=== PATIENT | male | born 1965 | race Caucasian/White ===

== ENCOUNTER 2017-01-15 07:50 | Outpatient (CLI) | payer MEDICARE ==
[2017-01-15] VITALS (11 sets, daily range): BP systolic 127–158; BP diastolic 69–98
[~2017-01-15] VITALS: Ht 188 cm; Wt 109.8 kg
[2017-01-15] MEDS ORDERED: LOVA20TA2 PO (08:09)
[2017-01-15] MEDS ORDERED: NPH,100V5 SQ (08:13)
[2017-01-15] MEDS ORDERED: FENO150C3 PO (08:18)
[2017-01-15] MEDS ORDERED: INSU100I30 SQ (08:19)
[2017-01-15] MEDS ORDERED: LISI-334 PO (08:24)
[2017-01-15] MEDS ORDERED: HYDR25TA9 PO (08:24)
[2017-01-15 08:29] LABS: HEMATOCRIT 43.4 % (39.0-53.0); HEMOGLOBIN 14.8 g/dL (13.0-17.5); RED BLOOD COUNT 4.53 x10^6/uL (4.30-5.70); RED CELL DISTRIBUTION WIDTH 13.4 % (11.5-14.5); WHITE BLOOD COUNT 5.2 x10^3/uL (4.0-11.0)
[2017-01-15 08:41] LABS: CALCIUM 9.1 mg/dL (8.5-10.1); CREATININE 0.9 mg/dL (0.7-1.3); GFR 88.3; POTASSIUM 4.4 mmol/L (3.5-5.1)
[2017-01-15 08:47] LABS: PROTHROMBIN TIME PATIENT 12.4 SEC (11.7-14.0)
[2017-01-15] MEDS ORDERED: IOHEXOL 300 MG/ML 100ML VIAL. ONE (08:54)
[2017-01-15] MEDS ORDERED: HEPARIN for IV BOLUS 10,000 UNIT/10 ML VIAL. ONE (09:22)
[2017-01-15] MEDS ORDERED: MIDAZOLAM HCL/PF 2 MG/2 ML VIAL. ONE ×2 (09:22→09:38)
[2017-01-15] MEDS ORDERED: NITROGLYCERIN 200 MCG/2 ML SYRINGE FOR CATH/VASC LAB. ONE (09:22)
[2017-01-15] MEDS ORDERED: VERAPAMIL 5 MG/2 ML VIAL. ONE (09:22)
[2017-01-15] MEDS ORDERED: fentaNYL PF VIAL 100 MCG/2 ML VIAL ONE (09:22)
[2017-01-15] MEDS ORDERED: diphenhydrAMINE 50 MG/ML VIAL ONE (09:45)
[2017-01-15] MEDS ORDERED: methylPREDNISolone SOD SUCC PF 125 MG/2 ML VIAL. ONE (09:50)
[2017-01-15] MEDS ORDERED: LIDOCAINE 2% 20 ML VIAL. ONE (09:58)
[2017-01-15] MEDS ORDERED: methylPREDNISolone SOD SUCC PF 125 MG/2 ML VIAL. IV ONE (10:00)
[2017-01-15] MEDS ORDERED: MIDAZOLAM HCL/PF 2 MG/2 ML VIAL. IV ONE (10:00)
[2017-01-15] MEDS ORDERED: LIDOCAINE 2% 20 ML VIAL. IJ ONE (10:00)
[2017-01-15] MEDS ORDERED: NITROGLYCERIN 200 MCG/2 ML SYRINGE FOR CATH/VASC LAB. IART ONE (10:00)
[2017-01-15] MEDS ORDERED: VERAPAMIL 5 MG/2 ML VIAL. IART ONE (10:00)
[2017-01-15] MEDS ORDERED: diphenhydrAMINE 50 MG/ML VIAL IVP ONE (10:00)
[2017-01-15] MEDS ORDERED: IOHEXOL 300 MG/ML 100ML VIAL. IART ONE (10:00)
[2017-01-15] MEDS ORDERED: fentaNYL PF VIAL 100 MCG/2 ML VIAL IV ONE (10:00)
[2017-01-15] MEDS ORDERED: HEPARIN for IV BOLUS 10,000 UNIT/10 ML VIAL. IART ONE (10:00)
--- NOTE | 2017-01-15 10:20 | PDOC ---
MODERATE SEDATION ASSESSMENT RISKS/ALTERNATIVES Risks/Alternatives Risks and alternatives of this type of sedation and procedure discussed with: RISK/ALTERNATIVES: Patient H & P ON CHART H & P H & P on chart and reviewed for co-morbid conditions and appropriate labs. H&P ON CHART: Yes STATUS PREG STATUS ASSESSED: N/A MEDS/ALLERGIES REVIEWED Meds/Allergies Reviewed Medications and Allergies including time and route of recently administered narcotics and sedatives. MEDS/ALLERGIES REVIEWED: Yes ASA RATING ASA RATING: II AIRWAY ASSESSMENT Airway Assessment Airway patency, oral function limitations, presence of caps, crowns, dentures, partials, and ability to extend neck assessed. AIRWAY ASSESSMENT: Yes MALLAMPATI SCORE MALLAMPATI SCORE: II PRE-SEDATION ASSESSMENT PRE-SEDATION ASSESSMENT: Yes BRIAN JOHNSON MD Jan 15, 2017 10:20
[2017-01-15] MEDS ORDERED: NITROGLYCERIN SUBLINGUAL 0.4 MG BOTTLE OF 25. SL PRN (10:30)
--- NOTE | 2017-01-15 10:31 | CARD ---
APPROVED REPORT Procedure(s) performed: Left heart catheterization, selective coronary angiography and left ventricul ography via right transradial approach. Moderate sedation time: 40 minutes INDICATION The indication(s) include : unstable angina . PROCEDURE NARRATIVE After explaining the risks, benefits and alternative options, informed consent was obtained from ashanti ent. Patient was brought to the cardiac High School Music Instructor and right wrist was prepped and draped in the usual fashion after confirming a positive modified Anders's test. Arterial access was obtained in the [facility] t radial artery and a 6 Haitian sheath was inserted. 6 Haitian Dm catheter was used to perform nabila ective angiography of the left and right coronary arteries. 6 Haitian pigtail catheter was used to pe rform left ventriculography. Patient tolerated the procedure well. Hemostasis was achieved using TR band. There were no immediate complications. The following findings were noted. FINDINGS 1. Hemodynamics: Left ventricular end-diastolic pressure of 25 mmHg. No pullback gradient across th e aortic valve. 2. Left ventriculography: Diaphragmatic wall hypokinesis with ejection fraction estimated at 45%. No significant mitral regurgitation seen. 3. Coronary angiography: a. The left main coronary artery arose from the left sinus of Valsalva, gave rise to the left anteri or descending and left circumflex arteries and did not show any significant stenosis. b. The left anterior descending artery did not show any significant stenosis. c. The left circumflex artery showed 100% chronic total occlusion in mid segment with distal reconst itution of second obtuse marginal branch via left to left collaterals. d. The right coronary artery was a dominant vessel arising from the right sinus of Valsalva that francy wed 100% chronic total occlusion in mid segment with distal reconstitution of posterior descending an d posterolateral branches via left to right collaterals. Conclusion 1. Severe two vessel coronary artery disease with chronic total occlusions of right coronary and lef t circumflex arteries. 2. Diaphragmatic wall hypokinesis with ejection fraction estimated at 45%. Recommendations 1. Optimize medical therapy with aspirin, nitrates, beta blockers and statin therapy 2. Plan myocardial perfusion imaging to assess ischemic burden. If patient is symptomatic and there is significant ischemic burden, we will plan PCI to RESIDENTIAL AIR SEALING TECHNICIAN of RCA.
[2017-01-15] MEDS ORDERED: METO-239 PO (11:17)
[2017-01-15] MEDS ORDERED: ASPI-612 PO (11:17)
[2017-01-15] MEDS ORDERED: ISOS30TA4 PO (11:17)
[2017-01-15] MEDS ORDERED: ATORVASTATIN CALCIUM 20 MG TABLET PO SCH (21:00)
[2017-01-16] MEDS ORDERED: ASPIRIN ENTERIC COATED 81 MG TABLET.DR. PO SCH (08:00)
[2017-01-16] MEDS ORDERED: METOPROLOL SUCC 24HR ER 25 MG TAB.ER.24H. PO SCH (09:00)
[2017-01-16] MEDS ORDERED: ISOSORBIDE MONONITRATE ER 30 MG TAB.ER.24H PO SCH (09:00)
== END 2017-01-15 12:57 | disposition home or self-care (01) ==
LOC: CCL 07:50
PROVIDERS: ATTEND Internal Medicine Cardiovascular Disease
DX: I25.110 Atherosclerotic heart disease of native coronary artery with unstable angina pectoris (principal); F41.9 Anxiety disorder, unspecified; F32.9 Major depressive disorder, single episode, unspecified; E11.9 Type 2 diabetes mellitus without complications; I10 Essential (primary) hypertension; E78.5 Hyperlipidemia, unspecified; Z98.890 Other specified postprocedural states; Z79.899 Other long term (current) drug therapy; Z80.41 Family history of malignant neoplasm of ovary; Z80.1 Family history of malignant neoplasm of trachea, bronchus and lung
CPT/HCPCS: 36415; 80048; 85027; 85610; 93458; C1769; C1892; J1200; J1644; J2250; J2930; J3010; J3490; Q9967; 99152; 99153; J2001

== ENCOUNTER → 2017-02-12 | Outpatient (CLI) | payer MEDICARE ==
[2017-01-15 12:40] VITALS: BP 158/96
[~2017-02-12] MED LIST: ASPI-612 PO; FENO150C3 PO; HYDR25TA9 PO; INSU100I30 SQ; ISOS30TA4 PO; LISI-334 PO; LOVA20TA2 PO; METO-239 PO; NPH,100V5 SQ; REGADENOSON 0.4 MG/5 ML DISP.SYRIN. IV ONE
--- NOTE | 2017-02-12 16:37 | RAD ---
APPROVED REPORT Test Type: Pharmacological Stress Nurse/Tech: Karol Test Indications: multi vessel disease Cardiac History: HTN, see EMR Medications: See EMR Medical History: DM, Hyperlipidemia Resting ECG: SR Resting Heart Rate: 82 bpm Resting Blood Pressure: 134/75mmHg Pretest Chest Pain: None Nurse/Tech Notes S1, S2 wnl. Lungs CTA. No distress. Consent: The procedure was explained to the patient in lay terms. Informed consent was witnessed. Yovanny eout was entered into [employer]. History and Stress Test performed by RT Trey HaroR) (N) Pharm. Details Pharmacologic stress testing was performed using 0.4mg per 5ml of regadenoson given intravenously ove r 7-10 seconds. Stress Symptoms TORRES POST EXERCISE Reason for Termination: Infusion complete Max HR: 97 bpm Max Blood Pressure: 139/78mmHg Chest Pain: No. Arrhythmia: No. ST Change: No. INTERPRETATION Stress EKG Conclusion: The resting EKG shows a sinus rhythm with nonspecific ST-T wave changes. The stress EKG shows no significant changes from baseline. No EKG evidence of stressed induced ischemia. Imaging Protocol IMAGE PROTOCOL: Rest Tc-99m/stress Tc-99m 1 day Rest: Stress: Viability: Radiopharm.Tc99m HmbpdcwloRo35p Sestamibi [id number] 32.5mCi Duration 15min. 10min. Img Date 02/12/2017 02/12/2017 Inj-Img Eovt43wlm. 60min. Rest Admin Site:[facility] Pcu:RT Merary Haro)(N) Stress Admin Site: [facility] Pcu: RT Tahir (Patel)(N) STRESS DATA End Diast. Vol.190.0mlAv. Heart Rate88.0bpm End Syst. Vol.59.0mlCO Index BSA0.0L/min Myocardial Hbwb046.0gEject. Ejfixoyd70.0% Stress Rates Pk. Fill Rate3.30EDV/secLVtime Pk. Fill 175.62msec Pk. Empty Rate3.41ESV/secLVtime Pk. Vgdoz804.32msec 03/03 Pk. Fill1.12EDV/sec Stress Scores Regional WT0.00Summed WT12.00 Regional WM0.00Summed WM1.00 LV Perfusion The stress scans show an inferior lateral defect. The rest scans show an inferior lateral defect. Nuclear imaging shows a fixed inferior lateral defect consistent with a previous infarct with kisha-in farction ischemia. Wall Motion Left ventricular systolic function is intact with an ejection fraction of 69%. LV Perf. Quant 17 Seg. SSS18.00 17 Seg. SRS8.00 17 Seg. SDS10.00 Stress Defect Extent (% LAD)0.00Rest Defect Extent (% LAD)2.50Rev. Defect Extent (% LAD)0.00 Stress Defect Extent (% LCX) 86.30Rest Defect Extent (% LCX)58.80Rev. Defect Extent (% LCX)86.30 Stress Defect Extent (% RCA)40.00Rest Defect Extent (% RCA)20.00Rev. Defect Extent (% RCA)30.00 Stress Defect Extent (% JIMBO)30.90Rest Defect Extent (% JIMBO)20.20Rev. Defect Extent (% JIMBO)28.30 Conclusion 1. No EKG evidence of stressed induced ischemia. 2. Nuclear imaging is consistent with a prior inferior lateral infarct with some kisha-infarction isch emia. 3. Intact LV systolic function with ejection fraction of 69%. 4. Moderate to moderately low risk Lexiscan nuclear stress test.
== END | disposition home or self-care (01) ==
LOC: NM 08:07
PROVIDERS: ATTEND Internal Medicine Cardiovascular Disease
DX: I49.5 Sick sinus syndrome (principal); E11.9 Type 2 diabetes mellitus without complications; I10 Essential (primary) hypertension; E78.5 Hyperlipidemia, unspecified; I25.10 Atherosclerotic heart disease of native coronary artery without angina pectoris
CPT/HCPCS: 78452; 93017; 96374; 96375; 96376; A9500; J2785

== ENCOUNTER → 2019-01-31 | Outpatient (CLI) | payer MEDICARE ==
[2017-01-15 12:40] VITALS: BP 158/96
[~2019-01-31] MED LIST changes: +HYDR-2145 PO; -HYDR25TA9 PO; -REGADENOSON 0.4 MG/5 ML DISP.SYRIN. IV ONE
[2019-01-31 11:53] LABS: ALBUMIN 3.6 g/dL (3.4-5.0); ALBUMIN/GLOBULIN RATIO 0.8 (1.0-1.7); CALCIUM 9.5 mg/dL (8.5-10.1); CREATININE 1.2 mg/dL (0.7-1.3); GFR 62.9; TOTAL BILIRUBIN 0.5 mg/dL (0.2-1.0); TOTAL PROTEIN 8.2 g/dL (6.4-8.2)
[2019-01-31 11:54] LABS: CHOLESTEROL/HDL RATIO 3.7
[2019-02-01 00:07] LABS: HEMOGLOBIN A1C 8.1 % (4.8-5.6)
== END | disposition home or self-care (01) ==
LOC: LAB 09:55
PROVIDERS: ATTEND Family Medicine
DX: Z12.5 Encounter for screening for malignant neoplasm of prostate (principal); E11.65 Type 2 diabetes mellitus with hyperglycemia; E78.2 Mixed hyperlipidemia
CPT/HCPCS: 36415; 80053; 80061; 83036; G0103

== ENCOUNTER 2019-09-26 15:40 | Inpatient (IN) | payer MEDICARE ==
[~2019-09-26] VITALS: Ht 193 cm; Wt 116.8 kg
[~2019-09-26 15:40] MED LIST changes: -ASPI-612 PO; +ASPI-886 PO
--- NOTE | 2019-09-26 16:37 | PHYS DOC ---
Past Medical History Past Medical History: Diabetes-Type II, Hypertension Past Surgical History: Other Additional Past Surgical Histo: UNKNOWN Smoking Status: Former Smoker Alcohol Use: None General Adult EDM: Chief Complaint: OTHER COMPLAINTS HPI: HPI: Patient is a 54 year old male who presents with a diabetic foot ulcer to the right foot with infection and red streaking up his right leg. Patient states that he noticed there was a thumbtack in the bottom of his foot which he removed. Patient reports he is not sure how long the tach had been on the bottom of his foot, but when he noticed his foot was becoming more red and swollen with streaking up his leg, he would looked and pulled the thumbtack out. Patient denies any drainage coming from the hole in the bottom of his foot. He then presented to the emergency department today. Patient states that he patient denies any fever or chills, denies composure to the COVID-19 virus, denies any concerns for the COVID-19 virus. She denies any visual changes, any nasal congestion, cough, shortness of breath, chest pain, or swelling of his extremities. Patient denies any abdominal pain, nausea, vomiting, diarrhea, constipation. Patient denies any problems urinating, any back pain, any rashes, any headaches focal weaknesses. Patient denies any recent polyuria or jasen ydipsia, any swelling of his glands, any recent life changes, depressions, anxieties, homicidal or suicidal ideations. Patient states his last tetanus shot was less than 5 years ago. Review of Systems: Review of Systems: Constitutional: Denies fever or chills. Eyes: Denies change in visual acuity. HENT: Denies nasal congestion or sore throat. Respiratory: Denies cough or shortness of breath. Cardiovascular: Denies chest pain or edema. Patient reports 5 or 6 years ago he was was told by cardiology that he is needing to have a triple bypass, he has never followed up for this procedure. GI: Denies abdominal pain, nausea, vomiting, bloody stools or diarrhea. : Denies dysuria. Musculoskeletal: Denies back pain, patient complains of pain in the right foot, however patient states that he has diabetic neuropathy and this pain is intermittent. He rates this pain from a 0/10 to a 10/10 depending on the day. Integument: Denies rash. Patient states that there is a red area on the top of his foot with red streaking up his leg. Neurologic: Denies headache, focal weakness or sensory changes. Endocrine: Denies polyuria or polydipsia. Lymphatic: Denies swollen glands. Psychiatric: Denies depression or anxiety. Patient denies homicidal suicidal ideation. Heart Score: Risk Factors: Risk Factors: DM, Current or recent (<one month) smoker, HTN, HLP, family history of CAD, obesity. Risk Scores: Score 0 - 3: 2.5% MACE over next 6 weeks - Discharge Home Score 4 - 6: 20.3% MACE over next 6 weeks - Admit for Clinical Observation Score 7 - 10: 72.7% MACE over next 6 weeks - Early Invasive Strategies Allergies: Allergies: Allergies Coded Allergies Type Severity Reaction Last Updated Verified fentanyl Allergy Severe hives, itching 01/15/17 Yes Physical Exam: PE: Constitutional: Well developed, well nourished, no acute distress, non-toxic appearance. HENT: Normocephalic, atraumatic, bilateral external ears normal, oropharynx moist, no oral exudates, nose normal. Eyes: PERRLA, EOMI, conjunctiva normal, no discharge. Neck: Normal range of motion, no tenderness, supple, no stridor. Cardiovascular:Heart rate regular rhythm, no murmur heart sounds S1-S2, no abnormalities noted per auscultation. Lungs & Thorax: Bilateral breath sounds clear to auscultation all lung sahu. Abdomen: Bowel sounds normal, soft, no tenderness, no masses, no pulsatile masses. Skin: Warm, dry, no rash. Erythematous area to the top of the right foot with streaking partially up anterior durbin area skin intact. The bottom of the left f oot has a diabetic ulcer stage III with a 1/2 cm hole near limb #4 distal metatarsal, without purulent drainage. Back: No tenderness, no CVA tenderness. Extremities: Tenderness to the right foot, no cyanosis, no clubbing, ROM intact, no edema. Neurologic: Alert and oriented X 3, normal motor function, normal sensory function, no focal deficits noted. Psychologic: Affect normal, judgement normal, mood normal. Current Patient Data: Vital Signs: Vital Signs Date Time Temp Pulse Resp B/P (MAP) Pulse Ox O2 Delivery O2 Flow Rate FiO2 09/26/19 15:58 102.8 103 18 161/71 (101) 95 Room Air 102.8 EKG: EKG: EKG performed at 1846 by ED nursing staff, shows normal sinus rhythm without ectopy. Interpreted by ED attending Dr. Zendejas, no STEMI noted, no ACS concerns. Radiology/Procedures: Radiology/Procedures: [] Course & Med Decision Making: Course & Med Decision Making Pertinent Labs and Imaging studies reviewed. (See chart for details) 54-year-old male patient presents emergency department with a with a diabetic foot ulcer, exam is concerning for infectious process with an approximate 1/2 cm circular hole in the bottom of the right foot without purulent drainage stage III pressure ulcer, patient states that he removed a tach from his foot when he noticed his foot was red and becoming painful. There is erythema to the top of the foot with streaking proximately to midshaft durbin area. Patient was started on 1 g vancomycin, 600 of clindamycin, labs were ordered, no sepsis concerns. Patient also states that he was supposed to have a triple bypass 5 to 6 years ago, stating that he seen cardiology and that was the recommendation, patient states that he does never have a time to follow-up with them, stating that he had off-and-on insurance problems, patient denied any chest pain or chest di scomfort, a cardiac work-up was initiated in [place] of expected admission. Discussed case with [facility] Dr. Lazaro who who agreed to admit patient. Patient was sent to CAT scan of the right lower extremity, results pending, patient is not a patient under investigation of COVID-19. Shon Disclaimer: Shon Disclaimer: This electronic medical record was generated, in whole or in part, using a voice recognition dictation system. Departure Departure Impression: Primary Impression: Diabetic ulcer of right foot Additional Impression: Infectious process Disposition: ADMITTED INPATIENT Admitting Physician: STAR (Dr. Lazaro) Condition: GUARDED Referrals: BRIANNA VALENZUELA MD (PCP) Justicifation of Admission Dx: Justifications for Admission: Justification of Admission Dx: Yes Cellulitis: Cellulitis Comments: Diabetic foot ulcer with infectious process SIRENA ESPINOZA APRN Sep 26, 2019 16:37
[2019-09-26] MEDS ORDERED: VANCOMYCIN 1GM IVPB FOR OMNI 250 ML IV ONE (16:45)
[2019-09-26] MEDS ORDERED: ONDANSETRON PF 4 MG/2 ML VIAL. IVP ONE (16:45)
[2019-09-26] MEDS ORDERED: MORPHINE SULFATE 4 MG/ML VIAL. IV ONE ×2 (16:45→18:15)
[2019-09-26 16:53] LABS: BASO # 0.1 x10^3/uL (0.0-0.2); BASO % 1 % (0-3); EOS % 0 % (0-3); HEMATOCRIT 36.2 % (39.0-53.0); HEMOGLOBIN 12.7 g/dL (13.0-17.5); LYMPH # 0.9 x10^3/uL (1.0-4.8); LYMPH % 8 % (24-48); MEAN CORPUSCULAR HEMOGLOBIN 32 pg (25-35); MEAN CORPUSCULAR HGB CONC 35 g/dL (31-37); MEAN CORPUSCULAR VOLUME 90 fL (79-100); MONO # 0.9 x10^3/uL (0.0-1.1); MONO % 8 % (0-9); NEUT # 9.7 x10^3/uL (1.8-7.7); NEUT % 83 % (31-73); PLATELET COUNT 192 x10^3/uL (140-400); RED BLOOD COUNT 4.01 x10^6/uL (4.30-5.70); RED CELL DISTRIBUTION WIDTH 12.1 % (11.5-14.5); WHITE BLOOD COUNT 11.6 x10^3/uL (4.0-11.0)
[2019-09-26] MEDS ORDERED: IV NORMAL SALINE 1000ML BAG 1,000 ML IV ONE (17:00)
[2019-09-26] MEDS ORDERED: VANCOMYCIN 2 GM in IV NORMAL SALINE 500ML BAG 500 ML IV ONE (17:00)
[2019-09-26 17:03] LABS: PROTHROMBIN TIME PATIENT 13.4 SEC (11.7-14.0)
[2019-09-26 17:07] LABS: CALCIUM 8.9 mg/dL (8.5-10.1); CREATININE 1.1 mg/dL (0.7-1.3); GFR 69.2; POTASSIUM 4.4 mmol/L (3.5-5.1)
[2019-09-26 17:13] LABS: ALBUMIN 3.3 g/dL (3.4-5.0); MAGNESIUM 1.9 mg/dL (1.8-2.4); TOTAL BILIRUBIN 0.8 mg/dL (0.2-1.0); TOTAL PROTEIN 6.6 g/dL (6.4-8.2)
[2019-09-26 18:50] LABS: BILIRUBIN,URINE NEGATIVE (NEG); CLARITY,URINE CLEAR; COLOR,URINE YELLOW; NITRITE,URINE NEGATIVE (NEG); PH,URINE 7.5 (<5.0-8.0); PROTEIN,URINE NEGATIVE (NEG-TRACE)
[2019-09-26 18:58] LABS: BACTERIA,URINE 0 /HPF (0-FEW); RBC,URINE 0 /HPF (0-2); WBC,URINE OCC /HPF (0-4)
--- NOTE | 2019-09-26 20:32 | PDOC1 ---
History and Physical Date of Admission: Date of Admission DATE: 09/26/19 TIME: 20:26 Chief Complaint: Chief Complain: Right foot pain History of Present Illness: HPI: 54-year-old male with past medical history of diabetes type 2, hypertension, diabetic neuropathy. Comes to the ED with increasing right foot pain. He states that he had stepped on attack about 2 weeks ago but did not realize it un til today that he had stepped on attack that was about 1 cm long. Patient denies any pain or bleeding. Patient denies any falls or trauma. Patient states that he is compliant with his diabetes management. 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 But he had no's insurance at that time and he never followed up with that. Past Medical/Surgical History: PMH/PSH: Past Medical History: Diabetes-Type II, Hypertension, peripheral neuropathy Surgical history: Left first digit amputation Allergies: Allergies: Coded Allergies: fentanyl (Verified Allergy, Severe, hives, itching, 01/15/17) Family History: Family History: Reviewed and none reported Social History: Social History: Smoking Status: Former Smoker Alcohol Use: None Current Medications: Current Medications Current Medications Ondansetron HCl (Zofran) 4 mg 1X ONCE IVP Last administered on 09/26/19at 16:54; Start 09/26/19 at 16:45; Stop 09/26/19 at 16:46; Status DC Morphine Sulfate (Morphine Sulfate) 4 mg 1X ONCE IV Last administered on 09/26/19at 16:55; Start 09/26/19 at 16:45; Stop 09/26/19 at 16:46; Status DC Vancomycin HCl 250 ml @ 250 mls/hr 1X ONCE IV ; Start 09/26/19 at 16:45; Stop 09/26/19 at 16:44; Status DC Vancomycin HCl 2 gm/Sodium Chloride 500 ml @ 250 mls/hr ONCE ONCE IV Last administered on 09/26/19at 16:55; Start 09/26/19 at 17:00; Stop 09/26/19 at 18:59; Status DC Sodium Chloride 1,000 ml @ 1,000 mls/hr 1X ONCE IV Last administered on 09/26/19at 16:54; Start 09/26/19 at 17:00; Stop 09/26/19 at 17:59; Status DC Morphine Sulfate (Morphine Sulfate) 4 mg 1X ONCE IV Last administered on 09/26/19at 18:42; Start 09/26/19 at 18:15; Stop 09/26/19 at 18:16; Status DC Clindamycin Phosphate 50 ml @ 100 mls/hr Q8HRS IV ; Start 09/26/19 at 20:30 Active Scripts Active Reported Aspirin Ec (Aspirin) 81 Mg Tablet.dr 1 Tab PO DAILY Isosorbide Mononitrate Er (Isosorbide Mononitrate) 30 Mg Tab.er.24h 1 Tab PO DAILY Metoprolol Succinate ( Xl ) (Metoprolol Succinate) 25 Mg Tab.er.24h 25 Mg PO DAILY Lisinopril 20 Mg Tablet 1 Tab PO DAILY Hydrochlorothiazide Tablet (Hydrochlorothiazide) 25 Mg Tablet 25 Mg PO DAILY Tresiba Flextouch U-100 (Insulin Degludec) 100 Unit/1 Ml Insuln.pen 20 Unit SQ HS Fenofibrate 150 Mg Capsule 160 Mg PO DAILY Novolin N (Nph, Human Insulin Isophane) 100 Unit/1 Ml Vial 16 Unit SQ BIDBFRMEAL Lovastatin 20 Mg Tablet 20 Mg PO HS ROS: Review of Systems Review of System REVIEW OF SYSTEMS: GENERAL: Denies weakness SKIN: No bruising, hair changes or rashes. EYES: No blurred, double or loss of vision. NOSE AND THROAT: No history of nosebleeds, hoarseness or sore throat. HEART: No history of palpitations, chest pain or shortness of breath on exertion. LUNGS: Denies cough, hemoptysis, wheezing or shortness of breath. GASTROINTESTINAL: Denies changes in appetite, nausea, vomiting, diarrhea or constipation. GENITOURINARY: No history of frequency, urgency, hesitancy or nocturia. NEUROLOGIC: Denies history of numbness, tingling, or tremor. PSYCHIATRIC: No history of panic, anxiety or depression. ENDOCRINE: No history of heat or cold intolerance, polyuria or polydipsia. EXTREMITIES: Denies joint pain, pain on walking or stiffness. Physical Exam: Vital Signs: Vital Signs Date Time Temp Pulse Resp B/P (MAP) Pulse Ox O2 Delivery O2 Flow Rate FiO2 09/26/19 15:58 102.8 103 18 161/71 (101) 95 Room Air 102.8 Physcial Exam: GEN: No apparent distress. Alert and oriented HEENT: Normal cephalic, atraumatic, external auditory canals are patent EYES: Extraocular muscles are intact, pupil are equally round and reactive to light and accommodation MUSCULOSKELETAL: Well developed , well nourished, good range of motion ENDOCRINE: No thyromegaly was palpated LYMPHATICS: No cervical chain or axillary nodes were noted HEMATOPOIETIC: No bruising NECK: Supple, no JVD, no thyromegaly was noted LUNGS: Clear to auscultation in all lung sahu without rhonchi or wheezing HEART: RRR, S!, S2 present. Peripheral pulses intact, no obvious murmurs noted ABDOMEN: Soft, nontender. Positive bowel sounds, no organomegaly, normal bowel sounds EXTREMITIES: Left lower extremity with first digit amputation well-healed. Right lower extremity with erythema on the dorsal surface of the foot. There is a small 1 x 1 cm puncture wound on the plantar side of his foot. There is erythematous tracking along the fourth and fifth digit. No crepitus palpated or gangrene seen. Not tender to palpation. A Nasra at this NEUROLOGIC: Normal speech and tone. A&O x 3, moves all extremities, no obvious focal deficits PSYCHIATRIC: Normal affect, normal mood. Stable SKIN: No ulcerations or rashes, good skin turgor, no jaundice VASCULAR: Good capillary refill, neurovascular bundle appears to be intact Labs: Labs: Laboratory Tests Test 09/26/19 16:30 09/26/19 18:42 White Blood Count 11.6 x10^3/uL (4.0-11.0) Red Blood Count 4.01 x10^6/uL (4.30-5.70) Hemoglobin 12.7 g/dL (13.0-17.5) Hematocrit 36.2 % (39.0-53.0) Mean Corpuscular Volume 90 fL (79-100) Mean Corpuscular Hemoglobin 32 pg (25-35) Mean Corpuscular Hemoglobin Concent 35 g/dL (31-37) Red Cell Distribution Width 12.1 % (11.5-14.5) Platelet Count 192 x10^3/uL (140-400) Neutrophils (%) (Auto) 83 % (31-73) Lymphocytes (%) (Auto) 8 % (24-48) Monocytes (%) (Auto) 8 % (0-9) Eosinophils (%) (Auto) 0 % (0-3) Basophils (%) (Auto) 1 % (0-3) Neutrophils # (Auto) 9.7 x10^3/uL (1.8-7.7) Lymphocytes # (Auto) 0.9 x10^3/uL (1.0-4.8) Monocytes # (Auto) 0.9 x10^3/uL (0.0-1.1) Eosinophils # (Auto) 0.0 x10^3/uL (0.0-0.7) Basophils # (Auto) 0.1 x10^3/uL (0.0-0.2) Prothrombin Time 13.4 SEC (11.7-14.0) Prothromb Time International Ratio 1.1 (0.8-1.1) Activated Partial Thromboplast Time 35 SEC (24-38) Sodium Level 134 mmol/L (136-145) Potassium Level 4.4 mmol/L (3.5-5.1) Chloride Level 98 mmol/L (98-107) Carbon Dioxide Level 30 mmol/L (21-32) Anion Gap 6 (6-14) Blood Urea Nitrogen 17 mg/dL (8-26) Creatinine 1.1 mg/dL (0.7-1.3) Estimated GFR (Cockcroft-Gault) 69.2 BUN/Creatinine Ratio 15 (6-20) Glucose Level 135 mg/dL (70-99) Lactic Acid Level 1.3 mmol/L (0.4-2.0) Calcium Level 8.9 mg/dL (8.5-10.1) Magnesium Level 1.9 mg/dL (1.8-2.4) Total Bilirubin 0.8 mg/dL (0.2-1.0) Aspartate Amino Transf (AST/SGOT) 21 U/L (15-37) Alanine Aminotransferase (ALT/SGPT) 25 U/L (16-63) Alkaline Phosphatase 73 U/L (46-116) Creatine Kinase 82 U/L (39-308) Creatine Kinase MB (Mass) 0.6 ng/mL (0.0-3.6) Creatine Kinase MB Relative Index 0.7 % (0-4) Troponin I Quantitative < 0.017 ng/mL (0.000-0.055) Total Protein 6.6 g/dL (6.4-8.2) Albumin 3.3 g/dL (3.4-5.0) Albumin/Globulin Ratio 1.0 (1.0-1.7) Urine Collection Type Unknown Urine Color Yellow Urine Clarity Clear Urine pH 7.5 (<5.0-8.0) Urine Specific [place] 1.020 (1.000-1.030) Urine Protein Negative mg/dL (NEG-TRACE) Urine Glucose (UA) 250 mg/dL (NEG) Urine Ketones (Stick) Negative mg/dL (NEG) Urine Blood Negative (NEG) Urine Nitrite Negative (NEG) Urine Bilirubin Negative (NEG) Urine Urobilinogen Dipstick 1.0 mg/dL (0.2 mg/dL) Urine Leukocyte Esterase Negative (NEG) Urine RBC 0 /HPF (0-2) Urine WBC Occ /HPF (0-4) Urine Bacteria 0 /HPF (0-FEW) Urine Mucus Mod /LPF Laboratory Tests Test 09/26/19 16:30 09/26/19 18:42 White Blood Count 11.6 x10^3/uL (4.0-11.0) Red Blood Count 4.01 x10^6/uL (4.30-5.70) Hemoglobin 12.7 g/dL (13.0-17.5) Hematocrit 36.2 % (39.0-53.0) Mean Corpuscular Volume 90 fL (79-100) Mean Corpuscular Hemoglobin 32 pg (25-35) Mean Corpuscular Hemoglobin Concent 35 g/dL (31-37) Red Cell Distribution Width 12.1 % (11.5-14.5) Platelet Count 192 x10^3/uL (140-400) Neutrophils (%) (Auto) 83 % (31-73) Lymphocytes (%) (Auto) 8 % (24-48) Monocytes (%) (Auto) 8 % (0-9) Eosinophils (%) (Auto) 0 % (0-3) Basophils (%) (Auto) 1 % (0-3) Neutrophils # (Auto) 9.7 x10^3/uL (1.8-7.7) Lymphocytes # (Auto) 0.9 x10^3/uL (1.0-4.8) Monocytes # (Auto) 0.9 x10^3/uL (0.0-1.1) Eosinophils # (Auto) 0.0 x10^3/uL (0.0-0.7) Basophils # (Auto) 0.1 x10^3/uL (0.0-0.2) Prothrombin Time 13.4 SEC (11.7-14.0) Prothromb Time International Ratio 1.1 (0.8-1.1) Activated Partial Thromboplast Time 35 SEC (24-38) Sodium Level 134 mmol/L (136-145) Potassium Level 4.4 mmol/L (3.5-5.1) Chloride Level 98 mmol/L (98-107) Carbon Dioxide Level 30 mmol/L (21-32) Anion Gap 6 (6-14) Blood Urea Nitrogen 17 mg/dL (8-26) Creatinine 1.1 mg/dL (0.7-1.3) Estimated GFR (Cockcroft-Gault) 69.2 BUN/Creatinine Ratio 15 (6-20) Glucose Level 135 mg/dL (70-99) Lactic Acid Level 1.3 mmol/L (0.4-2.0) Calcium Level 8.9 mg/dL (8.5-10.1) Magnesium Level 1.9 mg/dL (1.8-2.4) Total Bilirubin 0.8 mg/dL (0.2-1.0) Aspartate Amino Transf (AST/SGOT) 21 U/L (15-37) Alanine Aminotransferase (ALT/SGPT) 25 U/L (16-63) Alkaline Phosphatase 73 U/L (46-116) Creatine Kinase 82 U/L (39-308) Creatine Kinase MB (Mass) 0.6 ng/mL (0.0-3.6) Creatine Kinase MB Relative Index 0.7 % (0-4) Troponin I Quantitative < 0.017 ng/mL (0.000-0.055) Total Protein 6.6 g/dL (6.4-8.2) Albumin 3.3 g/dL (3.4-5.0) Albumin/Globulin Ratio 1.0 (1.0-1.7) Urine Collection Type Unknown Urine Color Yellow Urine Clarity Clear Urine pH 7.5 (<5.0-8.0) Urine Specific [place] 1.020 (1.000-1.030) Urine Protein Negative mg/dL (NEG-TRACE) Urine Glucose (UA) 250 mg/dL (NEG) Urine Ketones (Stick) Negative mg/dL (NEG) Urine Blood Negative (NEG) Urine Nitrite Negative (NEG) Urine Bilirubin Negative (NEG) Urine Urobilinogen Dipstick 1.0 mg/dL (0.2 mg/dL) Urine Leukocyte Esterase Negative (NEG) Urine RBC 0 /HPF (0-2) Urine WBC Occ /HPF (0-4) Urine Bacteria 0 /HPF (0-FEW) Urine Mucus Mod /LPF Images: Images All labs, images, and reports were reviewed by me personally CT of lower extremity IMPRESSION: 1. Soft tissue swelling and foci of soft tissue gas at the level of the fourth MTP joints consistent with provided history of soft tissue ulceration. This can be further assessed with MRI if osteomyelitis needs to be evaluated 2. Although soft tissue swelling is seen about the left lower leg, particularly about the ankle, no definite soft tissue gas is within the left lower leg. 3. Changes of Charcot arthropathy centered at the midfoot and hindfoot. 4. Atherosclerotic vascular calcifications are seen. Electronically signed by: Myles Rodriguez MD (09/26/2019 9:13 PM) [facility] Assessment/Plan Assessment/Plan Sepsis due to diabetic foot ulcer secondary to puncture wound Diabetes type 2 Hypertension Peripheral neuropathy CAD Admit to medicine Consult cardiology Consult podiatry Wound care nurse consult If patient continues to fever or wound infection is worsening, consider infectious disease consult Will continue to monitor extremity for worsening erythema Currently CT of the lower extremity does not show concerns for necrotizing fasciitis, LRINEC score is less than 4 which is low risk for nec Fasc Accu-Cheks and regular insulin sliding scale Continue IV vancomycin and IV clindamycin Tetanus vaccine is up-to-date Lovenox for DVT prophylaxis ADA diet Full code Discussed with RN and ED physician Dispo pending podiatry evaluation Justicifation of Admission Dx: Justifications for Admission: Justification of Admission Dx: Yes Sepsis: Infection ASHUTOSH KNAPP MD Sep 26, 2019 20:32
--- NOTE | 2019-09-26 21:16 | RAD ---
EXAM: CT left lower extremity from the knee through the ankle. DATE: 09/26/2019 8:15 PM COMPARISON: No prior INDICATION: DIABETIC FT ULCER W INFECTIOUS PROCESS, EVAL FOR GAS, PREVIOUS CRUSH INJURY / Spl. Instructions: KNEE DOWN PER M.A., NON CONTRAST PER DR KNAPP / History: TECHNIQUE: CT left lower extremity from the knee through the ankle was performed without IV contrast. Axial coronal and sagittal reformatted images were generated. PQRS compliance statement - One or more of the following individualized dose reduction techniques were utilized for this study: 1. Automated exposure control 2. Adjustment of the mA and/or kV according to patient size 3. Use of iterative reconstruction technique FINDINGS: Changes of Charcot arthropathy centered at the hindfoot and midfoot with marked cystic change and deformity as well as midfoot collapse is seen. Soft tissue swelling and irregularity at the plantar aspect of the fourth MTP joint likely represents the known soft tissue ulceration. Evaluation of this is incomplete as it is not fully included in the [id number] on the reformatted images. Diffuse soft tissue edema is seen about the left lower leg, particularly laterally. No soft tissue gas is seen within the left lower leg. Atherosclerotic vascular calcifications are seen. No aggressive osseous lesion is seen. Borderline lateral patellar tracking. No knee joint effusion. IMPRESSION: 1. Soft tissue swelling and foci of soft tissue gas at the level of the fourth MTP joints consistent with provided history of soft tissue ulceration. This can be further assessed with MRI if osteomyelitis needs to be evaluated 2. Although soft tissue swelling is seen about the left lower leg, particularly about the ankle, no definite soft tissue gas is within the left lower leg. 3. Changes of Charcot arthropathy centered at the midfoot and hindfoot. 4. Atherosclerotic vascular calcifications are seen. Electronically signed by: Myles Rodriguez MD (09/26/2019 9:13 PM) [facility]
[2019-09-26] MEDS: CLINDAMYCIN 600MG PREMIX 50 ML IV SCH (21:17)
[2019-09-26] MEDS ORDERED: DEXTROSE 50% 25 GM / 50ML DISP.SYRIN. IV PRN (21:45)
[2019-09-26 22:00] VITALS: BP 140/81
[2019-09-26] MEDS: ATORVASTATIN CALCIUM 10 MG TABLET. PO SCH (22:00)
[2019-09-26] MEDS ORDERED: LOVA40TA2 PO (22:44)
[2019-09-26] MEDS ORDERED: INSU100V11 SQ (22:44)
[2019-09-26] MEDS ORDERED: HYDROmorphone 2 MG/ML VIAL IVP PRN (23:00)
[2019-09-26] MEDS: LORazepam 0.5 MG TABLET PO PRN (23:26)
[2019-09-26] MEDS: oxyCODONE/APAP 5/325 1 TAB TABLET PO PRN (23:26)
[2019-09-26] MEDS: INSULIN LISPRO 300 UNITS/3 ML VIAL. SQ SCH (23:38)
--- NOTE | 2019-09-27 01:56 | NUR ---
PATIENT ARRIVED TO UNIT AT APPROX 2200 ON 09/25 ACCOMPANIED BY [employer] TECHNOLOGIST. PATIENT CURRENTLY REPORTS INTERMITTENT STABBING PAIN, IN THE RIGHT FOOT/LEG. PT STATES THAT HE DOES TAKE GABAPENTIN AT HOME FOR THE NERVE PAIN BUT DOESN'T TAKE IT REGULARLY PRESCRIBED. PT HAS A RIGHT FOOT ULCER THAT HE STATES IS FROM A TACK. PT STATES "I REMOVED A TACK FROM MY FOOT ON August AND I DONT KNOW HOW LONG IT HAS BEEN THERE" PT NOTICED RED STREAKS, SWELLING, AND PAIN. WOUND PICTURED AND WOUND CARE CONSULTED. RESTING COMFORTABLY ON RA. VS STABLE, CALL LIGHT IN REACH. REMINDED PATIENT TO CALL FOR ASSISTANCE BEFORE AMBULATING. BED IN LOW LOCKED POSITION. WILL CONTINUE TO MONITOR.
--- NOTE | 2019-09-27 03:25 | EKG ---
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
[2019-09-27] MEDS: ACETAMINOPHEN 325 MG TABLET. PO PRN ×3 (03:33→22:59)
[2019-09-27] MEDS: LORazepam 0.5 MG TABLET PO PRN (03:33)
[2019-09-27 03:35] VITALS: BP 118/59
[2019-09-27] MEDS: CLINDAMYCIN 600MG PREMIX 50 ML IV SCH ×3 (05:37→21:57)
[2019-09-27 07:00] VITALS: BP 115/66
[2019-09-27] MEDS ORDERED: INSULIN LISPRO 300 UNITS/3 ML VIAL. SQ SCH (08:00)
[2019-09-27] MEDS: ASPIRIN ENTERIC COATED 81 MG TABLET.DR. PO SCH (08:26)
[2019-09-27] MEDS: LISINOPRIL 20 MG TABLET PO SCH (08:26)
[2019-09-27] MEDS: ISOSORBIDE MONONITRATE ER 30 MG TAB.ER.24H PO SCH (08:27)
[2019-09-27] MEDS: METOPROLOL SUCC 24HR ER 25 MG TAB.ER.24H. PO SCH (08:27)
[2019-09-27] MEDS: INSULIN LISPRO 300 UNITS/3 ML VIAL. SQ SCH ×3 (08:35→17:23)
--- NOTE | 2019-09-27 09:01 | PDOC ---
[facility] PROGRESS NOTE Chief Complaint Chief Complaint Sepsis due to diabetic foot ulcer secondary to puncture wound Diabetes type 2 Hypertension Peripheral neuropathy CAD Admit to medicine Consult cardiology Consult podiatry Wound care nurse consult If patient continues to fever or wound infection is worsening, consider infectious disease consult Will continue to monitor extremity for worsening erythema Currently CT of the lower extremity does not show concerns for necrotizing fasciitis, LRINEC score is less than 4 which is low risk for nec Fasc Accu-Cheks and regular insulin sliding scale Continue IV vancomycin and IV clindamycin Tetanus vaccine is up-to-date Lovenox for DVT prophylaxis ADA diet Full code Discussed with RN and ED physician Dispo pending podiatry evaluation History of Present Illness History of Present Illness 54-year-old male with past medical history of diabetes type 2, hypertension, diabetic neuropathy. Comes to the ED with increasing right foot pain. He states that he had stepped on attack about 2 weeks ago but did not realize it until today that he had stepped on attack that was about 1 cm long. Patient denies any pain or bleeding. Patient denies any falls or trauma. Patient states that he is compliant with his diabetes management. 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 But he had no's insurance at that time and he never followed up with that. 09/27/19 Patient seen and examined today. Fever 101.7 overnight chart reviewed Vitals/I&O Vitals/I&O: Vital Signs Date Time Temp Pulse Resp B/P (MAP) Pulse Ox O2 Delivery O2 Flow Rate FiO2 09/27/19 08:27 82 115/66 09/27/19 07:00 99.0 18 93 Room Air 99.0 I & O 09/26/19 09/26/19 09/27/19 14:59 22:59 06:59 Intake Total 1000 ml 50 ml Output Total 0 ml Balance 1000 ml 50 ml Physical Exam Physical Exam: GEN: No apparent distress. Alert and oriented HEENT: Normal cephalic, atraumatic, external auditory canals are patent MUSCULOSKELETAL: Well developed , well nourished, good range of motion HEMATOPOIETIC: No bruising NECK: Supple, no JVD, no thyromegaly was noted LUNGS: Clear to auscultation in all lung sahu without rhonchi or wheezing HEART: RRR, S!, S2 present. Peripheral pulses intact, no obvious murmurs noted ABDOMEN: Soft, nontender. Positive bowel sounds, no organomegaly, normal bowel sounds EXTREMITIES: Left lower extremity with first digit amputation well-healed. Right lower extremity with erythema on the dorsal surface of the foot. There is a small 1 x 1 cm puncture wound on the plantar side of his foot. There is erythematous tracking along the fourth and fifth digit. No crepitus palpated or gangrene seen. Not tender to palpation. A Nasra at this VASCULAR: Good capillary refill, neurovascular bundle appears to be intact Labs Labs: Laboratory Tests Test 09/26/19 16:30 09/26/19 18:42 09/26/19 23:29 09/27/19 07:45 White Blood Count 11.6 x10^3/uL (4.0-11.0) Red Blood Count 4.01 x10^6/uL (4.30-5.70) Hemoglobin 12.7 g/dL (13.0-17.5) Hematocrit 36.2 % (39.0-53.0) Mean Corpuscular Volume 90 fL (79-100) Mean Corpuscular Hemoglobin 32 pg (25-35) Mean Corpuscular Hemoglobin Concent 35 g/dL (31-37) Red Cell Distribution Width 12.1 % (11.5-14.5) Platelet Count 192 x10^3/uL (140-400) Neutrophils (%) (Auto) 83 % (31-73) Lymphocytes (%) (Auto) 8 % (24-48) Monocytes (%) (Auto) 8 % (0-9) Eosinophils (%) (Auto) 0 % (0-3) Basophils (%) (Auto) 1 % (0-3) Neutrophils # (Auto) 9.7 x10^3/uL (1.8-7.7) Lymphocytes # (Auto) 0.9 x10^3/uL (1.0-4.8) Monocytes # (Auto) 0.9 x10^3/uL (0.0-1.1) Eosinophils # (Auto) 0.0 x10^3/uL (0.0-0.7) Basophils # (Auto) 0.1 x10^3/uL (0.0-0.2) Prothrombin Time 13.4 SEC (11.7-14.0) Prothromb Time International Ratio 1.1 (0.8-1.1) Activated Partial Thromboplast Time 35 SEC (24-38) Sodium Level 134 mmol/L (136-145) Potassium Level 4.4 mmol/L (3.5-5.1) Chloride Level 98 mmol/L (98-107) Carbon Dioxide Level 30 mmol/L (21-32) Anion Gap 6 (6-14) Blood Urea Nitrogen 17 mg/dL (8-26) Creatinine 1.1 mg/dL (0.7-1.3) Estimated GFR (Cockcroft-Gault) 69.2 BUN/Creatinine Ratio 15 (6-20) Glucose Level 135 mg/dL (70-99) Lactic Acid Level 1.3 mmol/L (0.4-2.0) Calcium Level 8.9 mg/dL (8.5-10.1) Magnesium Level 1.9 mg/dL (1.8-2.4) Total Bilirubin 0.8 mg/dL (0.2-1.0) Aspartate Amino Transf (AST/SGOT) 21 U/L (15-37) Alanine Aminotransferase (ALT/SGPT) 25 U/L (16-63) Alkaline Phosphatase 73 U/L (46-116) Creatine Kinase 82 U/L (39-308) Creatine Kinase MB (Mass) 0.6 ng/mL (0.0-3.6) Creatine Kinase MB Relative Index 0.7 % (0-4) Troponin I Quantitative < 0.017 ng/mL (0.000-0.055) C-Reactive Protein, Quantitative 136.2 mg/L (0-3.3) Total Protein 6.6 g/dL (6.4-8.2) Albumin 3.3 g/dL (3.4-5.0) Albumin/Globulin Ratio 1.0 (1.0-1.7) Urine Collection Type Unknown Urine Color Yellow Urine Clarity Clear Urine pH 7.5 (<5.0-8.0) Urine Specific [place] 1.020 (1.000-1.030) Urine Protein Negative mg/dL (NEG-TRACE) Urine Glucose (UA) 250 mg/dL (NEG) Urine Ketones (Stick) Negative mg/dL (NEG) Urine Blood Negative (NEG) Urine Nitrite Negative (NEG) Urine Bilirubin Negative (NEG) Urine Urobilinogen Dipstick 1.0 mg/dL (0.2 mg/dL) Urine Leukocyte Esterase Negative (NEG) Urine RBC 0 /HPF (0-2) Urine WBC Occ /HPF (0-4) Urine Bacteria 0 /HPF (0-FEW) Urine Mucus Mod /LPF Glucose (Fingerstick) 220 mg/dL (70-99) 271 mg/dL (70-99) Comment Review of Relevant I have reviewed the following items domitila (where applicable) has been applied. Medications: Current Medications Medications (Trade) Dose Ordered Sig/Matteo Route PRN Reason Start Time Stop Time Status Last Admin Dose Admin Ondansetron HCl (Zofran) 4 mg 1X ONCE IVP 09/26/19 16:45 09/26/19 16:46 DC 09/26/19 16:54 Morphine Sulfate (Morphine Sulfate) 4 mg 1X ONCE IV 09/26/19 16:45 09/26/19 16:46 DC 09/26/19 16:55 Vancomycin HCl 2 gm/Sodium Chloride 500 ml @ 250 mls/hr ONCE ONCE IV 09/26/19 17:00 09/26/19 18:59 DC 09/26/19 16:55 Sodium Chloride 1,000 ml @ 1,000 mls/hr 1X ONCE IV 09/26/19 17:00 09/26/19 17:59 DC 09/26/19 16:54 Morphine Sulfate (Morphine Sulfate) 4 mg 1X ONCE IV 09/26/19 18:15 09/26/19 18:16 DC 09/26/19 18:42 Clindamycin Phosphate 50 ml @ 100 mls/hr Q8HRS IV 09/26/19 20:30 09/27/19 05:37 Aspirin (Ecotrin) 81 mg [id number] PO 09/27/19 08:00 09/27/19 08:26 Isosorbide Mononitrate (Imdur) 30 mg DAILY PO 09/27/19 09:00 09/27/19 08:27 Lisinopril (Prinivil) 20 mg DAILY PO 09/27/19 09:00 09/27/19 08:26 Metoprolol Succinate (Toprol Xl) 25 mg DAILY PO 09/27/19 09:00 09/27/19 08:27 Lorazepam (Ativan) 0.5 mg PRN Q4HRS PRN PO ANXIETY / AGITATION 09/26/19 23:00 09/27/19 03:33 Oxycodone/ Acetaminophen (Percocet 5/325) 1 tab PRN Q6HRS PRN PO PAIN 09/26/19 23:00 09/26/19 23:26 Insulin Human Lispro (HumaLOG) 0-7 UNITS TIDWMEALS SQ 09/26/19 23:00 09/27/19 08:35 Acetaminophen (Tylenol) 650 mg PRN Q6HRS PRN PO FEVER > 100.5'F 09/27/19 03:30 09/27/19 03:33 Justicifation of Admission Dx: Justifications for Admission: Justification of Admission Dx: Yes Sepsis: Infection Cellulitis: Cellulitis ASHUTOSH KNAPP MD Sep 27, 2019 09:01
--- NOTE | 2019-09-27 09:55 | PDOC2 ---
KARINA KENNEY EQUIPMENT MANAGER 09/27/19 0955: CARDIAC CONSULT DATE OF CONSULT Date of Consult DATE: 09/27/19 TIME: 09:43 REASON FOR CONSULT Reason for Consult: CAD REFERRING PHYSICIAN Referring Physician: Dr. Scott SOURCE Source: Chart review, Patient HISTORY OF PRESENT ILLNESS HISTORY OF PRESENT ILLNESS This is a 54 yo male who presented secondary to ulcer to the bottom of the right foot with red streaking on top of the foot up to the leg and edema. Patient noticed that he had a thumbtack in the bottom of his foot, which he removed. Patient unsure how long this has been present. 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 Unfortunately, has not follow up in clinic as he lost his insurance coverage. Needs to re-establish care. He denies any chest pain, palpitations, dizziness, diaphoresis, SOA, or nausea/vomiting. PAST MEDICAL HISTORY Cardiovascular: CAD, HTN, Hyperlipidemia, Other (PAD) CENTRAL NERVOUS SYSTEM: Periperal neuropathy Psych: Anxiety, Depression Endocrine: Diabetes PAST SURGICAL HISTORY Past Surgical History: Hernia Repair, Other (left great toe amputation ) FAMILY HISTORY Family History: Diabetes, Hypertension SOCIAL HISTORY Smoke: No ALCOHOL: social Lives: with Family CURRENT MEDICATIONS CURRENT MEDICATIONS Current Medications Medications (Trade) Dose Ordered Sig/Matteo Route PRN Reason Start Time Stop Time Status Last Admin Dose Admin Ondansetron HCl (Zofran) 4 mg 1X ONCE IVP 09/26/19 16:45 09/26/19 16:46 DC 09/26/19 16:54 Morphine Sulfate (Morphine Sulfate) 4 mg 1X ONCE IV 09/26/19 16:45 09/26/19 16:46 DC 09/26/19 16:55 Vancomycin HCl 2 gm/Sodium Chloride 500 ml @ 250 mls/hr ONCE ONCE IV 09/26/19 17:00 09/26/19 18:59 DC 09/26/19 16:55 Sodium Chloride 1,000 ml @ 1,000 mls/hr 1X ONCE IV 09/26/19 17:00 09/26/19 17:59 DC 09/26/19 16:54 Morphine Sulfate (Morphine Sulfate) 4 mg 1X ONCE IV 09/26/19 18:15 09/26/19 18:16 DC 09/26/19 18:42 Clindamycin Phosphate 50 ml @ 100 mls/hr Q8HRS IV 09/26/19 20:30 09/27/19 05:37 Aspirin (Ecotrin) 81 mg DAILYWBKFT PO 09/27/19 08:00 09/27/19 08:26 Isosorbide Mononitrate (Imdur) 30 mg DAILY PO 09/27/19 09:00 09/27/19 08:27 Lisinopril (Prinivil) 20 mg DAILY PO 09/27/19 09:00 09/27/19 08:26 Metoprolol Succinate (Toprol Xl) 25 mg DAILY PO 09/27/19 09:00 09/27/19 08:27 Lorazepam (Ativan) 0.5 mg PRN Q4HRS PRN PO ANXIETY / AGITATION 09/26/19 23:00 09/27/19 03:33 Oxycodone/ Acetaminophen (Percocet 5/325) 1 tab PRN Q6HRS PRN PO PAIN 09/26/19 23:00 09/26/19 23:26 Insulin Human Lispro (HumaLOG) 0-7 UNITS TIDWMEALS SQ 09/26/19 23:00 09/27/19 08:35 Acetaminophen (Tylenol) 650 mg PRN Q6HRS PRN PO FEVER > 100.5'F 09/27/19 03:30 09/27/19 03:33 ALLERGIES ALLERGIES: Coded Allergies: fentanyl (Verified Allergy, Severe, hives, itching, 01/15/17) ROS Review of System 14 point ROS conducted with pertinent positives noted above in HPI PHYSICAL EXAM General: Alert, Oriented X3, Cooperative, No acute distress HEENT: Atraumatic, Mucous membr. moist/pink Lungs: Clear to auscultation Heart: Regular rate Abdomen: Soft, No tenderness Extremities: Other (right foot edema with erythema. Ulcer to bottom of foot.) Neuro: Sensation intact Psych/Mental Status: Mental status NL, Mood NL MUSCULOSKELETAL: Osteoarthritic changes both hands VITALS/I&O VITALS/I&O: Vital Signs Date Time Temp Pulse Resp B/P (MAP) Pulse Ox O2 Delivery O2 Flow Rate FiO2 09/27/19 08:27 82 115/66 09/27/19 07:00 99.0 18 93 Room Air 99.0 I & O 09/26/19 09/26/19 09/27/19 15:00 23:00 07:00 Intake Total 1000 ml 50 ml Output Total 0 ml Balance 1000 ml 50 ml LABS Lab: Laboratory Tests Test 09/26/19 16:30 09/26/19 18:42 09/26/19 23:29 09/27/19 07:45 White Blood Count 11.6 x10^3/uL (4.0-11.0) H Red Blood Count 4.01 x10^6/uL (4.30-5.70) L Hemoglobin 12.7 g/dL (13.0-17.5) L Hematocrit 36.2 % (39.0-53.0) L Mean Corpuscular Volume 90 fL (79-100) Mean Corpuscular Hemoglobin 32 pg (25-35) Mean Corpuscular Hemoglobin Concent 35 g/dL (31-37) Red Cell Distribution Width 12.1 % (11.5-14.5) Platelet Count 192 x10^3/uL (140-400) Neutrophils (%) (Auto) 83 % (31-73) H Lymphocytes (%) (Auto) 8 % (24-48) L Monocytes (%) (Auto) 8 % (0-9) Eosinophils (%) (Auto) 0 % (0-3) Basophils (%) (Auto) 1 % (0-3) Neutrophils # (Auto) 9.7 x10^3/uL (1.8-7.7) H Lymphocytes # (Auto) 0.9 x10^3/uL (1.0-4.8) L Monocytes # (Auto) 0.9 x10^3/uL (0.0-1.1) Eosinophils # (Auto) 0.0 x10^3/uL (0.0-0.7) Basophils # (Auto) 0.1 x10^3/uL (0.0-0.2) Prothrombin Time 13.4 SEC (11.7-14.0) Prothrombin Time INR 1.1 (0.8-1.1) Activated Partial Thromboplast Time 35 SEC (24-38) Sodium Level 134 mmol/L (136-145) L Potassium Level 4.4 mmol/L (3.5-5.1) Chloride Level 98 mmol/L (98-107) Carbon Dioxide Level 30 mmol/L (21-32) Anion Gap 6 (6-14) Blood Urea Nitrogen 17 mg/dL (8-26) Creatinine 1.1 mg/dL (0.7-1.3) Estimated GFR (Cockcroft-Gault) 69.2 BUN/Creatinine Ratio 15 (6-20) Glucose Level 135 mg/dL (70-99) H Lactic Acid Level 1.3 mmol/L (0.4-2.0) Calcium Level 8.9 mg/dL (8.5-10.1) Magnesium Level 1.9 mg/dL (1.8-2.4) Total Bilirubin 0.8 mg/dL (0.2-1.0) Aspartate Amino Transferase (AST) 21 U/L (15-37) Alanine Aminotransferase (ALT) 25 U/L (16-63) Alkaline Phosphatase 73 U/L (46-116) Creatine Kinase 82 U/L (39-308) Creatine Kinase MB (Mass) 0.6 ng/mL (0.0-3.6) Creatine Kinase MB Relative Index 0.7 % (0-4) Troponin I Quantitative < 0.017 ng/mL (0.000-0.055) C-Reactive Protein, Quantitative 136.2 mg/L (0-3.3) H Total Protein 6.6 g/dL (6.4-8.2) Albumin 3.3 g/dL (3.4-5.0) L Albumin/Globulin Ratio 1.0 (1.0-1.7) Urine Collection Type Unknown Urine Color Yellow Urine Clarity Clear Urine pH 7.5 (<5.0-8.0) Urine Specific Monona 1.020 (1.000-1.030) Urine Protein Negative mg/dL (NEG-TRACE) Urine Glucose (UA) 250 mg/dL (NEG) Urine Ketones (Stick) Negative mg/dL (NEG) Urine Blood Negative (NEG) Urine Nitrite Negative (NEG) Urine Bilirubin Negative (NEG) Urine Urobilinogen Dipstick 1.0 mg/dL (0.2 mg/dL) Urine Leukocyte Esterase Negative (NEG) Urine RBC 0 /HPF (0-2) Urine WBC Occ /HPF (0-4) Urine Bacteria 0 /HPF (0-FEW) Urine Mucus Mod /LPF Glucose (Fingerstick) 220 mg/dL (70-99) H 271 mg/dL (70-99) H Laboratory Tests 09/26/19 16:30 Laboratory Tests 09/26/19 16:30 STRESS TEST STRESS TEST Conclusion 1. No EKG evidence of stressed induced ischemia. 2. Nuclear imaging is consistent with a prior inferior lateral infarct with some kisha-infarction ischemia. 3. Intact LV systolic function with ejection fraction of 69%. 4. Moderate to moderately low risk Lexiscan nuclear stress test. DATE: 02/12/17 1636 HEART CATH HEART CATH FINDINGS 1. Hemodynamics: Left ventricular end-diastolic pressure of 25 mmHg. No pullback gradient across the aortic valve. 2. Left ventriculography: Diaphragmatic wall hypokinesis with ejection fraction estimated at 45%. No significant mitral regurgitation seen. 3. Coronary angiography: a. The left main coronary artery arose from the left sinus of Valsalva, gave rise to the left anterior descending and left circumflex arteries and did not show any significant stenosis. b. The left anterior descending artery did not show any significant stenosis. c. The left circumflex artery showed 100% chronic total occlusion in mid segment with distal reconstitution of second obtuse marginal branch via left to left collaterals. d. The right coronary artery was a dominant vessel arising from the right sinus of Valsalva that showed 100% chronic total occlusion in mid segment with distal reconstitution of posterior descending and posterolateral branches via left to right collaterals. Conclusion 1. Severe two vessel coronary artery disease with chronic total occlusions of right coronary and left circumflex arteries. 2. Diaphragmatic wall hypokinesis with ejection fraction estimated at 45%. Recommendations 1. Optimize medical therapy with aspirin, nitrates, beta blockers and statin therapy 2. Plan myocardial perfusion imaging to assess ischemic burden. If patient is symptomatic and there is significant ischemic burden, we will plan PCI to ASSEMBLY LINE ROBOT OPERATOR of RCA. DATE: 01/15/17 1031 ASSESSMENT/PLAN ASSESSMENT/PLAN 1. Right foot ulcer secondary to puncture wound 2. Leukocytosis, fevers 3. Diabetic neuropathy 3. CAD; Known ASSEMBLY LINE ROBOT OPERATOR of the RCA and LCx as noted above 4. PAD; LE CT noted with calcifications 6. Hypertension; controlled 7. Hyperlipidemia; statin 8. Diabetes, II Recommendations LE arterial duplex Antibiotic therapy as per PCP Resume secondary prevention; statin,imdur Will add ASA and BB therapy Outpatient echocardiogram arranged. Will need to establish care on an outpatient basis; follow up appointment with Dr. Vega scheduled. BRIAN VEGA MD 09/28/19 0915: CARDIAC CONSULT ASSESSMENT/PLAN ASSESSMENT/PLAN Patient seen and examined 09/27/19. Agree with MILL CONTROLLER's assessment and plan. Continue treatment of traumatic foot ulcer per ID team. Lower extremity arterial duplex scan did not show any major vascular stenosis. CAD status clinically stable. Plan for outpatient 2D echocardiogram and possibly MPI. Thank you for your consultation. KARINA KENNEY APRN Sep 27, 2019 09:55 BRIAN VEGA MD Sep 28, 2019 09:15
--- NOTE | 2019-09-27 10:21 | NUR ---
SS following for discharge planning. SS reviewed pt chart and discussed with pt RN. Pt is from home and is currently on room air. Pt on IV Clindamycin. Cardiology and wound care consulted. SS will continue to follow for discharge planning.
[2019-09-27 10:56] VITALS: BP 117/61
[2019-09-27 15:00] VITALS: BP 104/51
--- NOTE | 2019-09-27 15:48 | RAD ---
MR#: [id number] Date of Study: 09/27/2019 Ordering Physician: LELAND DENT, Referring Physician: LELAND DENT, Tech: APPROVED REPORT Indications Non-healing Ulcer: Right RT FOOT REDNESS AND SWELLING. ULCER ON THE BOTTOM OF RT FOOT VELOCITY AND DOPPLER WAVEFORM ANALYSIS RIGHT cm/secWaveformSeverity LEFT cm/secWaveform Severity pCFA 145.0TriphasicpCFA 125.0Triphasic Prof Fem Art. 95.0BiphasicProf Fem Art. 126.0Biphasic Fem Art Prox. 143.4TriphasicFem Art Prox. 110.4Triphasic Fem Art Mid. 156.7TriphasicFem Art Mid. 104.1Triphasic Fem Art Dist. 115.7TriphasicFem Art Dist. 81.8Triphasic Pop Art(Fossa) 132.5TriphasicPop Art(AK) 75.2Triphasic BILLING COLLECTIONS SPECIALIST Prox. 118.8TriphasicPTA Prox. 62.8Triphasic BILLING COLLECTIONS SPECIALIST Dist. 124.8BiphasicPTA Dist. 72.9Triphasic Per Art Prox. 107.3TriphasicPer Art Prox. 37.6Triphasic Per Art Dist.92.0BiphasicPer Art Dist.47.4Triphasic KATERINA Prox. 80.2BiphasicATA Prox. 55.0Triphasic DPA 99MonophasicDPA 26Triphasic Findings Grayscale images of the bilateral lower extremity arterial vessels demonstrates mild diffuse atherosc lerosis. No focal high-grade stenosis is identified. Spectral waveforms and color Doppler from the common femoral artery to the popliteal artery bilateral ly are within normal limits. Velocities are within normal limits with triphasic waveforms. Below the knee on the right side there is three-vessel runoff without any critical stenosis identifie d. The anterior tibial and posterior tibial velocities are mildly elevated but no focal critical kathryn nosis is identified. Below the knee on the left side there is again three-vessel runoff without any critical stenosis iden tified. Critical Notification Critical Value: No <Conclusion> 1. No significant above-knee disease bilaterally 2. There is three-vessel runoff below the knee bilaterally with mildly elevated velocities on the ri ght side suggestive of mild to moderate disease but no focal stenosis identified Signed by : Shay Eugene, Electronically Approved : 09/27/2019 15:48:26
--- NOTE | 2019-09-27 16:21 | NUR ---
Wound Care Wound Type/Assessment: patient has a right plantar DFU. the wound was cleaned, measured, pictured and assessed by KWAN Gerardo APRN. Treatment Recommendations/Plan: She ordered for Hydrofera blue to be packed into the wound then apply a foam dressing over, change every other day. This dressing was applied at this time. Recommended Referrals/Tests: See Maxime Gerardo Care PROGRAM SUPPORT ASSISTANT's note. Discharge Recommendations for dressings: Recommendations of patient following up in the Wound Clinic.
--- NOTE | 2019-09-27 16:43 | PDOC ---
Progress Note-Wound Care SUBJECTIVE Pt with uncontrolled DM, most recent Hgb A1c done on 01/31, 8.1) with hx of DFUs. Pt with hx of amputation of his left great toe secondary to DFU and osteomyelitis. Pt states he stepped on a tack in late July. Pt states he has neuropathy of his bilat feet and therefore did not feel pain with the injury. Pt states approximately 2 weeks ago he began to notice some swelling and redness on the dorsal aspect of his foot. The patient reported to the ER d/t worsening redness, swelling of his foot with flu-like symptoms, including a fever. OBJECTIVE Vital Signs Vital Signs Date Time Temp Pulse Resp B/P (MAP) Pulse Ox O2 Delivery O2 Flow Rate FiO2 09/26/19 15:58 102.8 103 18 161/71 (101) 95 Room Air 102.8 Vital Signs Date Time Temp Pulse Resp B/P (MAP) Pulse Ox O2 Delivery O2 Flow Rate FiO2 09/27/19 15:00 100.1 89 18 104/51 (68) 92 Room Air 100.1 Physical Exam: Pt awake and alert, 54 year old male in NAD. Pt febrile with temp of 100.1. Pt pleasant in conversation and is a good historian. Resp even and unlabored. Pt on RA, not requiring supplemental O2. Abdomen soft, nondistended and nontender. Skin WDP. The right left great toe has been surgically amputated. Scar present without surrounding erythema or edema. Significant callus formation present to bilat dorsal feet. The right plantar foot reveals a 1.7x0.6x1.4cm open ulceration. Wound bed is 100% granulation. Bone is not palpable. No surrounding erythema or edema is present. No odor present following cleansing. The right dorsal foot reveals erythema with several vesicles present, this extends to the lower leg and is warm to touch. A chorcot's deformity is present to the the right foot. ASSESSMENT Problems: (1) Infectious process (2) Diabetic ulcer of right foot ROS ROS: Pt states he is not feeling well. Pt denies n/v/d. Pt states he has a poor appetite, however has been eating and drinking well. Pt states he has been sl eeping well without mood swings. Pt denies cough or SOB. Pt states he has body aches with his elevated fevers. PLAN 1) Right foot DFU with infection - Vascular Consult (CT suggestive of gas gangrene) - Arterial doppler with mild to moderate stenosis below the right knee - MRI to r/o osteomyelitis (CRP 136 with leukocytosis) - ID Consult (Elevated WBC with left shift, febrile status, and elevated CRP) - Cleanse and pat dry wound. Apply skin prep to surrounding tissue. Apply Hydrofera Blue to wound bed. Cover with foam adhesive. Change every Wed, Wed and Sun or prn if dressing loose or saturated - Erythema on dorsal aspect outline in black sharpie Case reviewed with Dr Knight. SHARI CORTES SUPERVISOR [employer] DEPARTMENT Sep 27, 2019 16:43
--- NOTE | 2019-09-27 17:19 | CONS ---
DATE OF CONSULTATION: PODIATRIC CONSULTATION REASON FOR CONSULTATION: Evaluate and treat diabetic ulcer, sub fourth metatarsal, right foot. HISTORY OF PRESENT ILLNESS: A 54-year-old gentleman with past history of diabetes, hypertension, diabetic neuropathy, was admitted through emergency room with increased right foot pain. The foot had become infected approximately 2 weeks ago. He had removed a tack from the plantar aspect of his foot. He has had a left great toe amputation approximately 5 years ago. ALLERGIES: FENTANYL SEVERE HIVES AND ITCHING in 2017. MEDICATIONS: Reviewed including vancomycin antibiotics, aspirin, isosorbide, metoprolol succinate, Prinivil, lisinopril 20 mg, hydrochlorothiazide, Tresiba FlexTouch insulin, fenofibrate, and lovastatin. PHYSICAL EXAMINATION: EXTREMITIES: Right foot demonstrates a callused area with an ulcer at the center of it. The callus is a thick and has created some undermining of the underlying ulcer. No drainage is seen. Beefy red base is present. No odor. The foot in general is swollen and red with apparent cellulitis at this time. VASCULAR: Pedal pulses are diminished, 1/4 right posterior tibial and dorsalis pedis. Left posterior tibial is possibly 3/4 at best. Dorsalis pedis is 1/4 left. NEUROLOGIC: The patient has decreased sensorium and did not appreciate any sharp instrumentation as areas debrided consistent with diabetic neuropathy. ASSESSMENT: 1. Diabetic ulcer as a result of foreign body sub fourth metatarsal, right foot. 2. Cellulitis, right foot. 3. Insulin-dependent diabetes with neuropathy and peripheral vascular disease. PLAN: Debride area at this time. Applied Silvadene cream. Reviewed record noting that the CAT scan did not confirm osteomyelitis at this time and did not confirm any soft tissue gas in the tissue either. At this time applied some Silvadene cream and a sterile gauze dressing. I have talked to wound care staff and they will be assessing him also. They also will make a recommendation on a long-term wound care to the area at whatever point this becomes a situation that bone infection is confirm, we will have to make decisions to address that possible resection of fourth metatarsal head. At this time, he can be followed by wound care unless a surgical intervention is necessary. BIANCA ARBOLEDA DPM DR: YAW/dara JOB#: [id number] / [id number]
[2019-09-27 19:00] VITALS: BP 124/61
[2019-09-27] MEDS: ATORVASTATIN CALCIUM 10 MG TABLET. PO SCH (19:56)
[2019-09-27] MEDS: INSULIN GLARGINE SYRINGE. SQ SCH (21:56)
[2019-09-27 23:14] VITALS: BP 113/50
[2019-09-28 03:00] VITALS: BP 106/56
[2019-09-28 05:19] LABS: CHOLESTEROL/HDL RATIO 5.1
[2019-09-28] MEDS: CLINDAMYCIN 600MG PREMIX 50 ML IV SCH ×3 (06:21→21:36)
[2019-09-28 07:00] VITALS: BP 122/68
[2019-09-28] MEDS ORDERED: PIP/TAZO PER PHARMACY MC PRN (08:15)
[2019-09-28] MEDS: ISOSORBIDE MONONITRATE ER 30 MG TAB.ER.24H PO SCH (08:23)
[2019-09-28] MEDS: ASPIRIN ENTERIC COATED 81 MG TABLET.DR. PO SCH (08:23)
[2019-09-28] MEDS: LISINOPRIL 20 MG TABLET PO SCH (08:23)
[2019-09-28] MEDS: METOPROLOL SUCC 24HR ER 25 MG TAB.ER.24H. PO SCH (08:23)
[2019-09-28] MEDS: INSULIN LISPRO 300 UNITS/3 ML VIAL. SQ SCH ×3 (08:24→17:47)
--- NOTE | 2019-09-28 08:32 | PDOC ---
Infectious Disease Note Vital Sign Vital Signs Vital Signs Date Time Temp Pulse Resp B/P (MAP) Pulse Ox O2 Delivery O2 Flow Rate FiO2 09/28/19 07:00 99.9 85 18 122/68 (86) 94 Room Air 99.9 Physical Exam PHYSICAL EXAM Labs Lab Laboratory Tests Test 09/27/19 11:55 09/27/19 16:53 09/27/19 20:23 09/28/19 04:00 Glucose (Fingerstick) 290 mg/dL (70-99) 273 mg/dL (70-99) 250 mg/dL (70-99) Triglycerides Level 123 mg/dL (0-150) Cholesterol Level 127 mg/dL (0-200) LDL Cholesterol, Calculated 77 mg/dL (0-100) VLDL Cholesterol, Calculated 25 mg/dL (0-40) Non-HDL Cholesterol Calculated 102 mg/dL (0-129) HDL Cholesterol 25 mg/dL (40-60) Cholesterol/HDL Ratio 5.1 Test 09/28/19 07:39 Glucose (Fingerstick) 247 mg/dL (70-99) Micro Microbiology 09/26/19 Blood Culture - Preliminary, Resulted NO GROWTH AFTER 1 DAY Objective Assessment Appeared on list today Right foot infection Fever Leukocytosis DM skin yeast infection Plan Plan of Care Add Zosyn/Dapto/Micafungin now CBC/CK/BMP now Labs in am F/u MRI F/u cults Awiat Vascular eval D/w nursing Thank you # [id number] ERRLO SHABAZZ MD Sep 28, 2019 08:32
[2019-09-28 08:45] LABS: BASO % 0 % (0-3); EOS # 0.1 x10^3/uL (0.0-0.7); EOS % 1 % (0-3); HEMATOCRIT 33.6 % (39.0-53.0); HEMOGLOBIN 11.6 g/dL (13.0-17.5); LYMPH # 0.9 x10^3/uL (1.0-4.8); LYMPH % 10 % (24-48); MEAN CORPUSCULAR HEMOGLOBIN 32 pg (25-35); MEAN CORPUSCULAR HGB CONC 34 g/dL (31-37); MEAN CORPUSCULAR VOLUME 92 fL (79-100); MONO # 0.8 x10^3/uL (0.0-1.1); MONO % 9 % (0-9); NEUT # 7.3 x10^3/uL (1.8-7.7); NEUT % 80 % (31-73); PLATELET COUNT 172 x10^3/uL (140-400); RED BLOOD COUNT 3.66 x10^6/uL (4.30-5.70); RED CELL DISTRIBUTION WIDTH 12.1 % (11.5-14.5); WHITE BLOOD COUNT 9.1 x10^3/uL (4.0-11.0)
[2019-09-28 08:51] LABS: CALCIUM 8.1 mg/dL (8.5-10.1); CREATININE 1.1 mg/dL (0.7-1.3); GFR 69.2; POTASSIUM 4.3 mmol/L (3.5-5.1)
[2019-09-28] MEDS: PIPERACILLIN/TAZOBACTAM 3.375 GM in IV NORMAL SALINE 50ML 50 ML IV SCH ×3 (09:08→17:42)
[2019-09-28] MEDS: INSULIN GLARGINE SYRINGE. SQ SCH (09:10)
[2019-09-28] MEDS ORDERED: POLYETHYLENE GLYCOL 3350 17 GM PACKET. PO ONE (09:30)
[2019-09-28] MEDS: DAPTOmycin (GENERIC) IVPB 590 MG in IV NORMAL SALINE 50ML 50 ML IV SCH (09:57)
--- NOTE | 2019-09-28 10:44 | CONS ---
DATE OF CONSULTATION: 09/28/2019 LOCATION: The patient's room is 205. REQUESTING PHYSICIAN: Nurse practitioner, Ruth for Dr. Knight. REASON FOR CONSULTATION: Right foot infection. HISTORY OF PRESENT ILLNESS: The patient is a 54-year-old gentleman with a history of longstanding diabetes and neuropathy. He does have a history of a left great toe infection with Strep and has undergone amputation. He states slightly before August, he found a tack in the bottom of his foot on the right side, it was uncertain how long it has been there, but he thought it was mainly about 5 days or so. He had been doing fairly well until about a week or so ago, he began developing redness and swelling of his right foot. Denies any additional pain. He began to have some subjective chills and sweats and more redness. He did not have an antibiotic at home. He states he took 2 pills, but he is uncertain which one it was and he presented to [facility] on 09/26/2019, had a white count of 11.6. Creatinine was 1.1. He underwent a CT scan of the lower extremity showed soft tissue swelling, foci of soft tissue gas at the level of the fourth MTP joint consistent with soft tissue ulceration. He also had soft tissue swelling about the right lower leg and ankle. He has been placed on clindamycin. I have been consulted this morning as his name appeared on my list. Currently, he is fairly comfortable, but does have some discomfort in right foot. He denies any known current fevers, chills or sweats. He has no headaches. No sore throat, cough or chest pain. Denies any nausea, vomiting, diarrhea, dysuria, frequency or urgency. He has no pets at home. Does not wear shoes off ____. PAST MEDICAL HISTORY: Positive for diabetes, hypertension, peripheral neuropathy, and obesity. He states he had a previous strep infection of his left great toe. He has anxiety, depression, and peripheral neuropathy. PAST SURGICAL HISTORY: Positive for hernia repair and left great toe amputation. REVIEW OF SYSTEMS: Otherwise negative except for mentioned above. SOCIAL HISTORY: Denies tobacco or alcohol. He is disabled. He has no pets. FAMILY HISTORY: Positive for diabetes and hypertension. CURRENT MEDICATIONS: Include clindamycin, Tylenol, Ecotrin, Lipitor, insulin, Imdur, Prinivil, and metoprolol. PHYSICAL EXAMINATION: VITAL SIGNS: He had a temperature of 102.7 over the last night and currently 99.9, pulse 85, respirations 18, blood pressure 122/60, and satting 94% on room air. CONSTITUTIONAL: He is lying in bed. He is cooperative. He is in no acute distress. He looks a little discouraged. HEENT: Pupils equal and reactive with normal conjunctivae. Oral cavity, pharynx is clear. NECK: Supple. Good range of motion. LUNGS: Clear to auscultation bilaterally. HEART: S1, S2. ABDOMEN: Obese, soft, nontender. No guarding, no rebound. EXTREMITIES: Without clubbing or cyanosis. Left great toe got a clean amputation, well-healed site. Right lower extremity has erythema and swelling to the right foot and lower leg. It does appear that the erythema has improved somewhat based on the outline. He has an ulceration on the bottom of his foot that is currently packed with Hydrofera Blue. He also has some warmth associated with it. He has some Charcot deformity and some edema and some mild small vesicles on the anterior aspect that appear to be drying. Plantar wound does not track to bone. SKIN: Otherwise, warm to touch. NEUROLOGIC: He is nonfocal, answers questions, moves all extremities. PSYCHIATRIC: Affect is somewhat flat. LABORATORY DATA: White count 11.6, hemoglobin 12.7, platelets 192, neutrophils 83, lymphs are 8, that is from 09/25. Fingerstick today of 247. Creatinine was 1.1 at time of presentation. Glucose was 135. He had normal liver function study tests. Urinalysis is clean. Blood cultures are negative so far. He had lower extremity arterial Dopplers, showed 3-vessel runoff between the knee bilaterally with mild elevation of velocities right side suggestive of [id number] disease, but no focal stenosis identified. He got a little bit of yeast on his feet. IMPRESSION: Again, he appeared to my list today. He has a right foot infection, fever, leukocytosis, diabetes, and skin yeast infection. RECOMMENDATIONS: We will add Zosyn, daptomycin and micafungin now. Obtain a CBC, a creatine kinase, and BMP now. Obtain BMP and CBC in the morning. Follow up MRI. Follow up cultures. Await vascular evaluation. This was discussed with nursing. Thank you for allowing me to see and participate in the patient's care. Should you have further questions, please do not hesitate to contact me. ERROL SHABAZZ MD DR: CYDNEY/dara JOB#: [id number] / [id number] MELANIE
[2019-09-28 11:00] VITALS: BP 110/59
[2019-09-28] MEDS: MICAFUNGIN 100 MG in IV DEXTROSE 5% 100ML 100 ML IV SCH (11:15)
--- NOTE | 2019-09-28 11:24 | PDOC ---
KARINA KENNEY PATY 09/28/19 1124: CARDIO Progress Notes Date and Time Date of Service 09/28/19 Time of Evaluation 1125 Subjective Subjective: No Chest Pain, No shortness of breath, No Palpitations, Other (right foot pain. Wanting to go home ) Vitals Vitals Vital Signs Date Time Temp Pulse Resp B/P (MAP) Pulse Ox O2 Delivery O2 Flow Rate FiO2 09/28/19 11:00 100.9 85 18 110/59 (76) 91 Room Air 100.9 Weight Weight [ ] Input and Output Intake and Output Intake and Output 09/28/19 07:00 Intake Total 580 ml Balance 580 ml Intake Oral 530 ml IV Total 50 ml # Voids 2 Laboratory Labs Laboratory Tests Test 09/27/19 11:55 09/27/19 16:53 09/27/19 20:23 09/28/19 04:00 Glucose (Fingerstick) 290 mg/dL (70-99) 273 mg/dL (70-99) 250 mg/dL (70-99) Triglycerides Level 123 mg/dL (0-150) Cholesterol Level 127 mg/dL (0-200) LDL Cholesterol, Calculated 77 mg/dL (0-100) VLDL Cholesterol, Calculated 25 mg/dL (0-40) Non-HDL Cholesterol Calculated 102 mg/dL (0-129) HDL Cholesterol 25 mg/dL (40-60) Cholesterol/HDL Ratio 5.1 Test 09/28/19 04:05 09/28/19 07:39 White Blood Count 9.1 x10^3/uL (4.0-11.0) Red Blood Count 3.66 x10^6/uL (4.30-5.70) Hemoglobin 11.6 g/dL (13.0-17.5) Hematocrit 33.6 % (39.0-53.0) Mean Corpuscular Volume 92 fL (79-100) Mean Corpuscular Hemoglobin 32 pg (25-35) Mean Corpuscular Hemoglobin Concent 34 g/dL (31-37) Red Cell Distribution Width 12.1 % (11.5-14.5) Platelet Count 172 x10^3/uL (140-400) Neutrophils (%) (Auto) 80 % (31-73) Lymphocytes (%) (Auto) 10 % (24-48) Monocytes (%) (Auto) 9 % (0-9) Eosinophils (%) (Auto) 1 % (0-3) Basophils (%) (Auto) 0 % (0-3) Neutrophils # (Auto) 7.3 x10^3/uL (1.8-7.7) Lymphocytes # (Auto) 0.9 x10^3/uL (1.0-4.8) Monocytes # (Auto) 0.8 x10^3/uL (0.0-1.1) Eosinophils # (Auto) 0.1 x10^3/uL (0.0-0.7) Basophils # (Auto) 0.0 x10^3/uL (0.0-0.2) Sodium Level 133 mmol/L (136-145) Potassium Level 4.3 mmol/L (3.5-5.1) Chloride Level 100 mmol/L (98-107) Carbon Dioxide Level 27 mmol/L (21-32) Anion Gap 6 (6-14) Blood Urea Nitrogen 13 mg/dL (8-26) Creatinine 1.1 mg/dL (0.7-1.3) Estimated GFR (Cockcroft-Gault) 69.2 Glucose Level 220 mg/dL (70-99) Calcium Level 8.1 mg/dL (8.5-10.1) Creatine Kinase 64 U/L (39-308) Glucose (Fingerstick) 247 mg/dL (70-99) Microbiology Micro Microbiology 09/26/19 Blood Culture - Preliminary, Resulted NO GROWTH AFTER 1 DAY Physical Exam Chest: Symmetric LUNGS: Clear to Auscultation Heart: S1S2, RRR Abdomen: Soft N/T Extremities: Other (right foot edema, erythema) Neurology: alert, oriented, follow commands Assessment Assessment 1. Right foot ulcer secondary to puncture wound 2. Leukocytosis, fevers 3. Diabetic neuropathy 3. 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 PAD; LE CT noted with calcifications. LE arterial duplex scan did not show any major vascular stenosis. 6. Hypertension; controlled 7. Hyperlipidemia; statin 8. Diabetes, II Recommendations Antibiotic therapy as per PCP Secondary prevention measures Outpatient echocardiogram arranged. Consider outpatient ischemic eval Follow up with Dr. Vega scheduled. Justicifation of Admission Dx: Justifications for Admission: Justification of Admission Dx: Yes Sepsis: Infection Cellulitis: Cellulitis BRIAN VEGA MD 09/28/19 2000: CARDIO Progress Notes Assessment Assessment Patient seen and examined. Agree with FEED RESEARCH TECHNICIAN's assessment and plan. Continue treatment of traumatic foot ulcer per ID team. Lower extremity arterial duplex scan did not show any major vascular stenosis. CAD status clinically stable. Tele did not show any significant arrhythmias Plan for outpatient 2D echocardiogram Follow up as scheduled KARINA KENNEY APRN Sep 28, 2019 11:24 BRIAN VEGA MD Sep 28, 2019 20:00
[2019-09-28] MEDS ORDERED: DEXTROSE 50% 25 GM / 50ML DISP.SYRIN. IV PRN (11:45)
--- NOTE | 2019-09-28 11:59 | PDOC ---
[facility] PROGRESS NOTE Chief Complaint Chief Complaint Sepsis due to diabetic foot ulcer secondary to puncture wound status post bedside debridement Diabetes type 2 Hypertension Peripheral neuropathy CAD Admit to medicine Appreciate cardiology recommendations, duplex ultrasound of the right lower extremity did not show any occlusion or stenosis. Appreciate podiatry recommendations, pending MRI Wound care nurse consult Appreciate infectious disease recommendations, have added Zosyn, daptomycin, micafungin. Follow-up wound and blood cultures Will continue to monitor extremity for worsening erythema LRINEC score is less than 4 which is low risk for nec Fasc Accu-Cheks and regular insulin sliding scale Adjusted long-acting insulin and increased sliding scale In hospital glucose level goals of between 140-1 80 Continue IV vancomycin and IV clindamycin Tetanus vaccine is up-to-date Lovenox for DVT prophylaxis ADA diet Full code Discussed with RN Dispo pending podiatry evaluation History of Present Illness History of Present Illness 54-year-old male with past medical history of diabetes type 2, hypertension, diabetic neuropathy. Comes to the ED with increasing right foot pain. He stat es that he had stepped on attack about 2 weeks ago but did not realize it until today that he had stepped on attack that was about 1 cm long. Patient denies any pain or bleeding. Patient denies any falls or trauma. Patient states that he is compliant with his diabetes management. 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 But he had no's insurance at that time and he never followed up with that. 09/28/2019 Patient seen and examined today. No acute events overnight. Patient continues to have fevers. Antibiotics have been broadened by infectious disease. Patient continues to have flat affect. No suicidal ideation or homicidal ideation at this time. Patient's chart, labs, images were reviewed and discussed with RN 09/27/19 Patient seen and examined today. Fever 101.7 overnight chart reviewed Vitals/I&O Vitals/I&O: Vital Signs Date Time Temp Pulse Resp B/P (MAP) Pulse Ox O2 Delivery O2 Flow Rate FiO2 09/28/19 11:00 100.9 85 18 110/59 (76) 91 Room Air 100.9 I & O 09/27/19 09/27/19 09/28/19 15:00 23:00 07:00 Intake Total 250 ml 330 ml Balance 250 ml 330 ml Physical Exam Physical Exam: GEN: No apparent distress. Alert and oriented HEENT: Normal cephalic, atraumatic, external auditory canals are patent NECK: Supple, no JVD, no thyromegaly was noted LUNGS: Bilateral crackles HEART: RRR, S1, S2 present. Peripheral pulses intact, no obvious murmurs noted ABDOMEN: Soft, nontender. Positive bowel sounds, no organomegaly, normal bowel sounds EXTREMITIES: Right lower extremity with improving erythema. Dressings are clear dry and intact. Non-malodorous. No pedal edema. General: Alert, Oriented X3, Cooperative, No acute distress Heart: Regular rate Abdomen: Soft, No tenderness Extremities: Other (right foot edema with erythema. Ulcer to bottom of foot.) Labs Labs: Laboratory Tests Test 09/27/19 16:53 09/27/19 20:23 09/28/19 04:00 09/28/19 04:05 Glucose (Fingerstick) 273 mg/dL (70-99) 250 mg/dL (70-99) Triglycerides Level 123 mg/dL (0-150) Cholesterol Level 127 mg/dL (0-200) LDL Cholesterol, Calculated 77 mg/dL (0-100) VLDL Cholesterol, Calculated 25 mg/dL (0-40) Non-HDL Cholesterol Calculated 102 mg/dL (0-129) HDL Cholesterol 25 mg/dL (40-60) Cholesterol/HDL Ratio 5.1 White Blood Count 9.1 x10^3/uL (4.0-11.0) Red Blood Count 3.66 x10^6/uL (4.30-5.70) Hemoglobin 11.6 g/dL (13.0-17.5) Hematocrit 33.6 % (39.0-53.0) Mean Corpuscular Volume 92 fL (79-100) Mean Corpuscular Hemoglobin 32 pg (25-35) Mean Corpuscular Hemoglobin Concent 34 g/dL (31-37) Red Cell Distribution Width 12.1 % (11.5-14.5) Platelet Count 172 x10^3/uL (140-400) Neutrophils (%) (Auto) 80 % (31-73) Lymphocytes (%) (Auto) 10 % (24-48) Monocytes (%) (Auto) 9 % (0-9) Eosinophils (%) (Auto) 1 % (0-3) Basophils (%) (Auto) 0 % (0-3) Neutrophils # (Auto) 7.3 x10^3/uL (1.8-7.7) Lymphocytes # (Auto) 0.9 x10^3/uL (1.0-4.8) Monocytes # (Auto) 0.8 x10^3/uL (0.0-1.1) Eosinophils # (Auto) 0.1 x10^3/uL (0.0-0.7) Basophils # (Auto) 0.0 x10^3/uL (0.0-0.2) Sodium Level 133 mmol/L (136-145) Potassium Level 4.3 mmol/L (3.5-5.1) Chloride Level 100 mmol/L (98-107) Carbon Dioxide Level 27 mmol/L (21-32) Anion Gap 6 (6-14) Blood Urea Nitrogen 13 mg/dL (8-26) Creatinine 1.1 mg/dL (0.7-1.3) Estimated GFR (Cockcroft-Gault) 69.2 Glucose Level 220 mg/dL (70-99) Calcium Level 8.1 mg/dL (8.5-10.1) Creatine Kinase 64 U/L (39-308) Test 09/28/19 07:39 Glucose (Fingerstick) 247 mg/dL (70-99) Comment Review of Relevant I have reviewed the following items domitila (where applicable) has been applied. Medications: Current Medications Medications (Trade) Dose Ordered Sig/Matteo Route PRN Reason Start Time Stop Time Status Last Admin Dose Admin Insulin Glargine (Lantus Syringe) 10 unit BID SQ 09/27/19 21:00 09/28/19 11:39 DC 09/28/19 09:10 Daptomycin 590 mg/ Sodium Chloride 50 ml @ 100 mls/hr Q24H IV 09/28/19 08:30 09/28/19 09:57 Micafungin Sodium 100 mg/Dextrose 100 ml @ 100 mls/hr Q24H IV 09/28/19 10:00 09/28/19 11:15 Piperacillin Sod/ Tazobactam Sod 3.375 gm/Sodium Chloride 50 ml @ 100 mls/hr Q6HRS IV 09/28/19 09:00 09/28/19 09:08 Polyethylene Glycol (miraLAX PACKET) 17 gm 1X ONCE PO 09/28/19 09:30 09/28/19 09:34 DC 09/28/19 11:19 Justicifation of Admission Dx: Justifications for Admission: Justification of Admission Dx: Yes Sepsis: Infection Cellulitis: Cellulitis ASHUTOSH KNAPP MD Sep 28, 2019 11:59
--- NOTE | 2019-09-28 12:14 | NUR ---
SS following up with discharge planning. SS reviewed pt chart and discussed with pt RN. Pt is currently on room air. Pt on IV Daptomycin, IV Zosyn, IV Micafungin, and IV Clindamycin. Wound care following. Pt having MRI to rule out osteomyelitis. SS will continue to follow for discharge planning.
[2019-09-28] MEDS ORDERED: GADOTERATE 7.5 MMOL/15ML VIAL. IVP ONE (15:30)
[2019-09-28] MEDS: oxyCODONE/APAP 5/325 1 TAB TABLET PO PRN (16:09)
--- NOTE | 2019-09-28 17:53 | RAD ---
Study: MRI of the right foot with and without contrast INDICATION: Deep foot ulcer with soft tissue gas. Osteomyelitis evaluation. COMPARISON: CT of the right lower extremity 09/26/2019. TECHNIQUE: Multiplanar MR imaging of the right foot performed both prior to and after the intravenous administration of 22 cc Dotarem. FINDINGS: Several sequences are degraded by motion. Fat saturated sequences are also degraded due to incomplete fat suppression. This questions the validity of osseous and soft tissue signal changes at various locations of the distal forefoot. Ulceration at the plantar foot subjacent to the fourth metatarsal head with a presumed sinus tract extending to the capsular undersurface, image 18 series 9, Nonenhancing but heterogeneously T2 hyperintense signal surrounding all aspects of the fourth MTP joint and extends along the proximal phalanx with intermixed gas. Surprisingly, no confluent T1 hypointense signal is seen at the distal fourth metatarsal or throughout the fourth ray phalanges that would confirm osteomyelitis. There is mostly peripheral T2 hyperintense signal involving the distal aspect of the third through fifth rays with some areas of corresponding enhancement but again no confluent T1 signal loss. Sequela of advanced Charcot arthropathy throughout the midfoot, hindfoot and ankle. Cystic regions with enhancement throughout these bones are most likely degenerative given the absence of any visualized deep ulceration, abscess or sinus tract. Edematous forefoot and midfoot soft tissues with enhancement compatible with a component of cellulitis. Intermixed devitalized/necrotic distal forefoot soft tissues. Small fluid collection without peripheral enhancement distal to the great toe MTP joint either degenerative or degraded hematoma. Muscular edema with enhancement could represent myositis or denervation. IMPRESSION: 1. Deep plantar ulceration subjacent to the fourth metatarsal head with a sinus tract to the capsular undersurface. Abnormal soft tissue and/or complex fluid surrounds the 4th MTP joint with intermixed gas and extend along the 4th rays phalanges. There would presumably be osteomyelitis at least surrounding the 4th MTP joint given the apparent depth of the ulcer/sinus tract and gas but there is no loss of T1 marrow signal to confirm. It is possible that there is osteomyelitis but not yet to the extent to manifest on MRI. Consider probing the ulcer to determine its depth. If to bone, osteomyelitis is present by convention. 2. Advanced Charcot arthropathy to varying degrees throughout the midfoot, hindfoot and ankle. 3. Edematous and enhancing soft tissues mainly throughout the forefoot and extending along the midfoot compatible with cellulitis. There is likely some devitalized/necrotic soft tissues at the distal forefoot as well. 4. Signal changes of the intrinsic foot musculature either on account of myositis, denervation or a combination of both. Electronically signed by: JUNE LAW MD (09/28/2019 5:51 PM) [id number]
[2019-09-28 19:38] VITALS: BP 101/50
[2019-09-28] MEDS: GABAPENTIN 300 MG CAPSULE. PO PRN (21:36)
[2019-09-28] MEDS: LACTOBACILLUS RHAMNOSUS GG 1 CAPSULE. PO SCH (21:36)
[2019-09-28] MEDS: LORazepam 0.5 MG TABLET PO PRN (21:36)
[2019-09-28] MEDS: ATORVASTATIN CALCIUM 10 MG TABLET. PO SCH (21:37)
[2019-09-28 22:26] VITALS: BP 99/50
[2019-09-28] MEDS: ACETAMINOPHEN 325 MG TABLET. PO PRN (22:33)
[2019-09-29] MEDS: PIPERACILLIN/TAZOBACTAM 3.375 GM in IV NORMAL SALINE 50ML 50 ML IV SCH ×5 (00:17→23:47)
[2019-09-29] MEDS: CLINDAMYCIN 600MG PREMIX 50 ML IV SCH ×3 (06:27→21:07)
[2019-09-29 07:00] VITALS: BP 112/48
[2019-09-29 08:08] LABS: BASO % 0 % (0-3); EOS # 0.1 x10^3/uL (0.0-0.7); EOS % 1 % (0-3); HEMATOCRIT 34.7 % (39.0-53.0); HEMOGLOBIN 11.8 g/dL (13.0-17.5); LYMPH # 0.6 x10^3/uL (1.0-4.8); LYMPH % 7 % (24-48); MEAN CORPUSCULAR HEMOGLOBIN 31 pg (25-35); MEAN CORPUSCULAR HGB CONC 34 g/dL (31-37); MEAN CORPUSCULAR VOLUME 91 fL (79-100); MONO # 0.7 x10^3/uL (0.0-1.1); MONO % 8 % (0-9); NEUT # 7.4 x10^3/uL (1.8-7.7); NEUT % 84 % (31-73); PLATELET COUNT 198 x10^3/uL (140-400); RED BLOOD COUNT 3.81 x10^6/uL (4.30-5.70); RED CELL DISTRIBUTION WIDTH 12.2 % (11.5-14.5); WHITE BLOOD COUNT 8.8 x10^3/uL (4.0-11.0)
[2019-09-29 08:30] LABS: CALCIUM 8.4 mg/dL (8.5-10.1); CREATININE 1.1 mg/dL (0.7-1.3); GFR 69.2; POTASSIUM 4.3 mmol/L (3.5-5.1)
--- NOTE | 2019-09-29 08:31 | PDOC ---
Infectious Disease Note Subjective Subjective Occ nausea but not eating. Some sweats. Mild constipation Foot stable ROS ROS o/w neg Vital Sign Vital Signs Vital Signs Date Time Temp Pulse Resp B/P (MAP) Pulse Ox O2 Delivery O2 Flow Rate FiO2 09/29/19 07:00 101.6 90 20 112/48 (69) 94 Room Air 101.6 Physical Exam PHYSICAL EXAM CONSTITUTIONAL: He is lying in bed. He is cooperative. He is in no acute distress. He looks a little discouraged. HEENT: Pupils equal and reactive with normal conjunctivae. Oral cavity, pharynx is clear. NECK: Supple. Good range of motion. LUNGS: Clear to auscultation bilaterally. HEART: S1, S2. ABDOMEN: Obese, soft, nontender. No guarding, no rebound. EXTREMITIES: Without clubbing or cyanosis. Left great toe got a clean amputation, well-healed site. Right lower extremity has erythema and swelling to the right foot and lower leg. He has some Charcot deformity and some edema and some mild small vesicles on the anterior aspect that appear to be drying. SKIN: Otherwise, warm to touch. NEUROLOGIC: He is nonfocal, answers questions, moves all extremities. PSYCHIATRIC: Affect is somewhat flat. Labs Lab Laboratory Tests Test 09/28/19 12:00 09/28/19 17:00 09/28/19 20:28 09/29/19 07:05 Glucose (Fingerstick) 210 mg/dL (70-99) 208 mg/dL (70-99) 257 mg/dL (70-99) 238 mg/dL (70-99) Test 09/29/19 07:30 White Blood Count 8.8 x10^3/uL (4.0-11.0) Red Blood Count 3.81 x10^6/uL (4.30-5.70) Hemoglobin 11.8 g/dL (13.0-17.5) Hematocrit 34.7 % (39.0-53.0) Mean Corpuscular Volume 91 fL (79-100) Mean Corpuscular Hemoglobin 31 pg (25-35) Mean Corpuscular Hemoglobin Concent 34 g/dL (31-37) Red Cell Distribution Width 12.2 % (11.5-14.5) Platelet Count 198 x10^3/uL (140-400) Neutrophils (%) (Auto) 84 % (31-73) Lymphocytes (%) (Auto) 7 % (24-48) Monocytes (%) (Auto) 8 % (0-9) Eosinophils (%) (Auto) 1 % (0-3) Basophils (%) (Auto) 0 % (0-3) Neutrophils # (Auto) 7.4 x10^3/uL (1.8-7.7) Lymphocytes # (Auto) 0.6 x10^3/uL (1.0-4.8) Monocytes # (Auto) 0.7 x10^3/uL (0.0-1.1) Eosinophils # (Auto) 0.1 x10^3/uL (0.0-0.7) Basophils # (Auto) 0.0 x10^3/uL (0.0-0.2) Micro MRI IMPRESSION: 1. Deep plantar ulceration subjacent to the fourth metatarsal head with a sinus tract to the capsular undersurface. Abnormal soft tissue and/or complex fluid surrounds the 4th MTP joint with intermixed gas and extend along the 4th rays phalanges. There would presumably be osteomyelitis at least surrounding the 4th MTP joint given the apparent depth of the ulcer/sinus tract and gas but there is no loss of T1 marrow signal to confirm. It is possible that there is osteomyelitis but not yet to the extent to manifest on MRI. Consider probing the ulcer to determine its depth. If to bone, osteomyelitis is present by convention. 2. Advanced Charcot arthropathy to varying degrees throughout the midfoot, hindfoot and ankle. 3. Edematous and enhancing soft tissues mainly throughout the forefoot and extending along the midfoot compatible with cellulitis. There is likely some devitalized/necrotic soft tissues at the distal forefoot as well. 4. Signal changes of the intrinsic foot musculature either on account of myositis, denervation or a combination of both. Microbiology 09/26/19 Blood Culture - Preliminary, Resulted NO GROWTH AFTER 1 DAY Objective Assessment Right foot infection Fever - persists Leukocytosis - better DM skin yeast infection Plan Plan of Care Cont Zosyn/Dapto/Micafungin now Ortho eval Labs in am F/u cults Vascular per nursing - no vascular issues D/w nursing ERROL SHABAZZ MD Sep 29, 2019 08:31
[2019-09-29] MEDS: LACTOBACILLUS RHAMNOSUS GG 1 CAPSULE. PO SCH ×2 (09:01→21:06)
[2019-09-29] MEDS: ASPIRIN ENTERIC COATED 81 MG TABLET.DR. PO SCH (09:01)
[2019-09-29] MEDS: ISOSORBIDE MONONITRATE ER 30 MG TAB.ER.24H PO SCH (09:01)
[2019-09-29] MEDS: METOPROLOL SUCC 24HR ER 25 MG TAB.ER.24H. PO SCH (09:02)
[2019-09-29] MEDS: ACETAMINOPHEN 325 MG TABLET. PO PRN (09:16)
[2019-09-29] MEDS: LISINOPRIL 20 MG TABLET PO SCH (09:16)
[2019-09-29] MEDS: LORazepam 0.5 MG TABLET PO PRN ×2 (09:16→21:06)
[2019-09-29] MEDS: DAPTOmycin (GENERIC) IVPB 590 MG in IV NORMAL SALINE 50ML 50 ML IV SCH (09:18)
[2019-09-29] MEDS: INSULIN GLARGINE SYRINGE. SQ SCH (09:23)
[2019-09-29] MEDS: INSULIN LISPRO 300 UNITS/3 ML VIAL. SQ SCH ×3 (09:24→18:06)
[2019-09-29] MEDS: MICAFUNGIN 100 MG in IV DEXTROSE 5% 100ML 100 ML IV SCH (10:00)
[2019-09-29 10:30] VITALS: BP 108/61
--- NOTE | 2019-09-29 10:45 | PDOC ---
Progress Note-Wound Care SUBJECTIVE Pt seen for f/u of his right DFU. Pt denies pain this am. States he is worried about loosing his foot. Pt states he continues to have intermittent fevers with generalized body aches. Pt states he has had a decreased appetite. Denies n/v/d. Pt denies cough or SOB. OBJECTIVE Vital Signs Vital Signs Date Time Temp Pulse Resp B/P (MAP) Pulse Ox O2 Delivery O2 Flow Rate FiO2 09/28/19 07:00 99.9 85 18 122/68 (86) 94 Room Air 99.9 Vital Signs Date Time Temp Pulse Resp B/P (MAP) Pulse Ox O2 Delivery O2 Flow Rate FiO2 09/29/19 09:16 90 112/48 09/29/19 07:00 101.6 20 94 Room Air 101.6 Physical Exam: Pt awake and alert. NAD. Pt febrile this am at 101.6. Resp even and unlabored. Pt on RA, not requiring supplemental O2. Abdomen soft, nondistended and nontender. Skin WDP. The plantar right foot reveals a 0.8x0.6x1.6cm open ulceration. There is a tunnel at 6 o'clock (towards the 4th toe) with max depth of 2.8cm. Bone is palpable. There is moderate serosanguineous drainage. No odor following cleansing. The dorsal right foot reveals erythema and 2+ edema which extends to the lower right leg. Remains within marked area from 09/27/19. PLAN Right DFU with osteomyelitis - Dr Lazaro, hospitalist - Ortho consulted, pending at this time - MRI suspicious for osteomyelitis, bone is palpable on examination - Vascular Consult (CT suggestive of gas gangrene) - Arterial doppler with mild to moderate stenosis below the right knee - ID consulting - Pt currently on Micafungin, Zosyn, Clindamycin, and Dapto Luekocytosis improved, left shift present - Cleanse and pat dry wound. Apply skin prep to surrounding tissue. Apply Hydrofera Blue to wound bed. Cover with foam adhesive. Change every Wed, Fri and Sun or prn if dressing loose or saturated SHARI CORTES ANNUAL GREENHOUSE MANAGER Sep 29, 2019 10:45
--- NOTE | 2019-09-29 12:10 | PDOC ---
[facility] PROGRESS NOTE Chief Complaint Chief Complaint Sepsis due to diabetic foot ulcer secondary to puncture wound status post bedside debridement Diabetes type 2 Hypertension Peripheral neuropathy CAD Appreciate cardiology recommendations, duplex ultrasound of the right lower extremity did not show any occlusion or stenosis. Orthopending evaluation after MRI results. Wound care nurse consultcontinue current management Appreciate infectious disease recommendations, have added Zosyn, daptomycin, micafungin. Follow-up wound and blood cultures Will continue to monitor extremity for worsening erythema LRINEC score is less than 4 which is low risk for nec Fasc Accu-Cheks and regular insulin sliding scale Adjusted long-acting insulin and increased sliding scale In hospital glucose level goals of between 140-1 80 Continue IV vancomycin and IV clindamycin Tetanus vaccine is up-to-date Lovenox for DVT prophylaxis ADA diet Full code Discussed with RN Dispo pending Ortho evaluation History of Present Illness History of Present Illness 54-year-old male with past medical history of diabetes type 2, hypertension, diabetic neuropathy. Comes to the ED with increasing right foot pain. He st ates that he had stepped on attack about 2 weeks ago but did not realize it until today that he had stepped on attack that was about 1 cm long. Patient denies any pain or bleeding. Patient denies any falls or trauma. Patient states that he is compliant with his diabetes management. 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 But he had no's insurance at that time and he never followed up with that. 09/29/2019 Patient seen and examined bedside today. Patient is resting comfortably. No acute events overnight. Patient had a fever 101.6. No suicidal ideation at this time. Patient's chart, labs, images were reviewed and discussed with RN 09/28/2019 Patient seen and examined today. No acute events overnight. Patient continues to have fevers. Antibiotics have been broadened by infectious disease. Patient continues to have flat affect. No suicidal ideation or homicidal ideation at this time. Patient's chart, labs, images were reviewed and discussed with RN 09/27/19 Patient seen and examined today. Fever 101.7 overnight chart reviewed Vitals/I&O Vitals/I&O: Vital Signs Date Time Temp Pulse Resp B/P (MAP) Pulse Ox O2 Delivery O2 Flow Rate FiO2 09/29/19 10:30 99.3 82 16 108/61 (77) 93 Room Air 99.3 I & O 09/28/19 09/28/19 09/29/19 15:00 23:00 07:00 Intake Total 300 ml 150 ml 400 ml Balance 300 ml 150 ml 400 ml Physical Exam Physical Exam: CONSTITUTIONAL: He is lying in bed. He is cooperative. He is in no acute distress. He looks a little discouraged. HEENT: Pupils equal and reactive with normal conjunctivae. Oral cavity, pharynx is clear. NECK: Supple. Good range of motion. LUNGS: Clear to auscultation bilaterally. HEART: S1, S2. ABDOMEN: Obese, soft, nontender. No guarding, no rebound. EXTREMITIES: Without clubbing or cyanosis. Left great toe got a clean amputation, well-healed site. Right lower extremity has erythema and swelling to the right foot and lower leg. He has some Charcot deformity and some edema and some mild small vesicles on the anterior aspect that appear to be drying. SKIN: Otherwise, warm to touch. NEUROLOGIC: He is nonfocal, answers questions, moves all extremities. PSYCHIATRIC: Affect is somewhat flat. General: Alert, Oriented X3, Cooperative, No acute distress Heart: Regular rate Abdomen: Soft, No tenderness Extremities: Other (right foot edema with erythema. Ulcer to bottom of foot.) Labs Labs: Laboratory Tests Test 09/28/19 17:00 09/28/19 20:28 09/29/19 07:05 09/29/19 07:30 Glucose (Fingerstick) 208 mg/dL (70-99) 257 mg/dL (70-99) 238 mg/dL (70-99) White Blood Count 8.8 x10^3/uL (4.0-11.0) Red Blood Count 3.81 x10^6/uL (4.30-5.70) Hemoglobin 11.8 g/dL (13.0-17.5) Hematocrit 34.7 % (39.0-53.0) Mean Corpuscular Volume 91 fL (79-100) Mean Corpuscular Hemoglobin 31 pg (25-35) Mean Corpuscular Hemoglobin Concent 34 g/dL (31-37) Red Cell Distribution Width 12.2 % (11.5-14.5) Platelet Count 198 x10^3/uL (140-400) Neutrophils (%) (Auto) 84 % (31-73) Lymphocytes (%) (Auto) 7 % (24-48) Monocytes (%) (Auto) 8 % (0-9) Eosinophils (%) (Auto) 1 % (0-3) Basophils (%) (Auto) 0 % (0-3) Neutrophils # (Auto) 7.4 x10^3/uL (1.8-7.7) Lymphocytes # (Auto) 0.6 x10^3/uL (1.0-4.8) Monocytes # (Auto) 0.7 x10^3/uL (0.0-1.1) Eosinophils # (Auto) 0.1 x10^3/uL (0.0-0.7) Basophils # (Auto) 0.0 x10^3/uL (0.0-0.2) Sodium Level 134 mmol/L (136-145) Potassium Level 4.3 mmol/L (3.5-5.1) Chloride Level 97 mmol/L (98-107) Carbon Dioxide Level 26 mmol/L (21-32) Anion Gap 11 (6-14) Blood Urea Nitrogen 14 mg/dL (8-26) Creatinine 1.1 mg/dL (0.7-1.3) Estimated GFR (Cockcroft-Gault) 69.2 Glucose Level 261 mg/dL (70-99) Calcium Level 8.4 mg/dL (8.5-10.1) Test 09/29/19 11:11 Glucose (Fingerstick) 299 mg/dL (70-99) Comment Review of Relevant I have reviewed the following items domitila (where applicable) has been applied. Medications: Current Medications Medications (Trade) Dose Ordered Sig/Matteo Route PRN Reason Start Time Stop Time Status Last Admin Dose Admin Insulin Glargine (Lantus Syringe) 20 unit DAILY SQ 09/29/19 09:00 09/29/19 09:23 Lactobacillus Rhamnosus (Culturelle) 1 cap BID PO 09/28/19 21:00 09/29/19 09:01 Gadoterate Meglumine (Dotarem) 22.8 ml 1X ONCE IVP 09/28/19 15:30 09/28/19 15:31 DC 09/28/19 15:36 Justicifation of Admission Dx: Justifications for Admission: Justification of Admission Dx: Yes Sepsis: Infection Cellulitis: Cellulitis ASHUTOSH KNAPP MD Sep 29, 2019 12:10
--- NOTE | 2019-09-29 13:10 | NUR ---
SS following for discharge planning. SS reviewed pt chart and discussed with pt RN. Pt is currently on room air. Pt on IV Daptomycin, IV Clindamycin, IV Micafungin, and IV Zosyn. Pt seen by wound care, vascular, and ortho. Per RN, pt will continue IV antibiotics through the weekend and specialists will follow up on Wednesday to assess if surgery is needed. SS will continue to follow for discharge planning.
[2019-09-29 15:16] VITALS: BP 147/66
[2019-09-29] MEDS: POLYETHYLENE GLYCOL 3350 17 GM PACKET. PO PRN (17:43)
[2019-09-29] MEDS: ENOXAPARIN 40 MG/0.4 ML SYRINGE. SQ SCH (17:44)
[2019-09-29 18:22] VITALS: BP 136/48
[2019-09-29] MEDS: ATORVASTATIN CALCIUM 10 MG TABLET. PO SCH (21:06)
[2019-09-29] MEDS: GABAPENTIN 300 MG CAPSULE. PO PRN (21:06)
[2019-09-29] MEDS ORDERED: diphenhydrAMINE HCL 25 MG CAPSULE PO PRN (21:45)
[2019-09-29 23:00] VITALS: BP 134/77
[2019-09-29] MEDS: ZOLPIDEM 5 MG TABLET. PO PRN (23:52)
[2019-09-30] VITALS (16 sets, daily range): BP systolic 109–223; BP diastolic 40–115
[2019-09-30] MEDS: ACETAMINOPHEN 325 MG TABLET. PO PRN ×2 (00:10→11:29)
[2019-09-30] MEDS: CLINDAMYCIN 600MG PREMIX 50 ML IV SCH (04:45)
[2019-09-30] MEDS: PIPERACILLIN/TAZOBACTAM 3.375 GM in IV NORMAL SALINE 50ML 50 ML IV SCH ×3 (06:18→17:35)
[2019-09-30] MEDS ORDERED: PROPOFOL 10 MG/ML (20ML) VIAL. IV ONE (07:02)
[2019-09-30] MEDS ORDERED: LIDOCAINE 2% PF 5 ML VIAL. ONE (07:02)
[2019-09-30] MEDS ORDERED: fentaNYL PF VIAL 100 MCG/2 ML VIAL ONE (07:03)
[2019-09-30] MEDS ORDERED: LIDOCAINE 1% Multi-Dose 20 ML VIAL. ONE (07:04)
[2019-09-30] MEDS ORDERED: BUPIVACAINE MPF 0.5% 30 ML VIAL. ONE (07:04)
--- NOTE | 2019-09-30 07:16 | PDOC ---
Infectious Disease Note Subjective Subjective Still sweats. Foot stable Vital Sign Vital Signs Vital Signs Date Time Temp Pulse Resp B/P (MAP) Pulse Ox O2 Delivery O2 Flow Rate FiO2 09/30/19 03:00 98.9 89 20 135/54 (81) 98 Room Air 98.9 Physical Exam PHYSICAL EXAM CONSTITUTIONAL: He is lying in bed. He is cooperative. He is in no acute distress. He looks a little discouraged. HEENT: Pupils equal and reactive with normal conjunctivae. Oral cavity, pharynx is clear. NECK: Supple. Good range of motion. LUNGS: Clear to auscultation bilaterally. HEART: S1, S2. ABDOMEN: Obese, soft, nontender. No guarding, no rebound. EXTREMITIES: Without clubbing or cyanosis. Left great toe got a clean amputation, well-healed site. Right lower extremity has less erythema and swelling to the right foot and lower leg and still warmth. He has some Charcot deformity and some edema and some mild small vesicles on the anterior aspect that appear to be drying. SKIN: Otherwise, warm to touch. NEUROLOGIC: He is nonfocal, answers questions, moves all extremities. PSYCHIATRIC: Affect is somewhat flat. Labs Lab Laboratory Tests Test 09/29/19 07:30 09/29/19 11:11 09/29/19 16:37 09/29/19 17:30 White Blood Count 8.8 x10^3/uL (4.0-11.0) Red Blood Count 3.81 x10^6/uL (4.30-5.70) Hemoglobin 11.8 g/dL (13.0-17.5) Hematocrit 34.7 % (39.0-53.0) Mean Corpuscular Volume 91 fL (79-100) Mean Corpuscular Hemoglobin 31 pg (25-35) Mean Corpuscular Hemoglobin Concent 34 g/dL (31-37) Red Cell Distribution Width 12.2 % (11.5-14.5) Platelet Count 198 x10^3/uL (140-400) Neutrophils (%) (Auto) 84 % (31-73) Lymphocytes (%) (Auto) 7 % (24-48) Monocytes (%) (Auto) 8 % (0-9) Eosinophils (%) (Auto) 1 % (0-3) Basophils (%) (Auto) 0 % (0-3) Neutrophils # (Auto) 7.4 x10^3/uL (1.8-7.7) Lymphocytes # (Auto) 0.6 x10^3/uL (1.0-4.8) Monocytes # (Auto) 0.7 x10^3/uL (0.0-1.1) Eosinophils # (Auto) 0.1 x10^3/uL (0.0-0.7) Basophils # (Auto) 0.0 x10^3/uL (0.0-0.2) Sodium Level 134 mmol/L (136-145) Potassium Level 4.3 mmol/L (3.5-5.1) Chloride Level 97 mmol/L (98-107) Carbon Dioxide Level 26 mmol/L (21-32) Anion Gap 11 (6-14) Blood Urea Nitrogen 14 mg/dL (8-26) Creatinine 1.1 mg/dL (0.7-1.3) Estimated GFR (Cockcroft-Gault) 69.2 Glucose Level 261 mg/dL (70-99) Calcium Level 8.4 mg/dL (8.5-10.1) Glucose (Fingerstick) 299 mg/dL (70-99) 289 mg/dL (70-99) SARS-CoV-2 Antigen (Rapid) Negative (NEGATIVE) Test 09/29/19 21:11 Glucose (Fingerstick) 222 mg/dL (70-99) Micro MRI IMPRESSION: 1. Deep plantar ulceration subjacent to the fourth metatarsal head with a sinus tract to the capsular undersurface. Abnormal soft tissue and/or complex fluid surrounds the 4th MTP joint with intermixed gas and extend along the 4th rays phalanges. There would presumably be osteomyelitis at least surrounding the 4th MTP joint given the apparent depth of the ulcer/sinus tract and gas but there is no loss of T1 marrow signal to confirm. It is possible that there is osteomyelitis but not yet to the extent to manifest on MRI. Consider probing the ulcer to determine its depth. If to bone, osteomyelitis is present by convention. 2. Advanced Charcot arthropathy to varying degrees throughout the midfoot, hindfoot and ankle. 3. Edematous and enhancing soft tissues mainly throughout the forefoot and extending along the midfoot compatible with cellulitis. There is likely some devitalized/necrotic soft tissues at the distal forefoot as well. 4. Signal changes of the intrinsic foot musculature either on account of myositis, denervation or a combination of both. Microbiology 09/26/19 Blood Culture - Preliminary, Resulted NO GROWTH AFTER 1 DAY Objective Assessment Right foot infection Fever - persists Leukocytosis - better DM skin yeast infection Plan Plan of Care Cont Zosyn/Dapto/Micafungin now To OR Hope fever to resolve post op Labs in am F/u cults Vascular per nursing - no vascular issues D/w nursing ERROL SHABAZZ MD Sep 30, 2019 07:16
[2019-09-30] MEDS ORDERED: MORPHINE SULFATE 2 MG/ML VIAL. ONE (07:40)
--- NOTE | 2019-09-30 08:00 | PDOC2 ---
CONSULT Date of Consult Date of Consult DATE: 09/30/19 TIME: 07:56 Reason for Consult Reason for Consult: Right foot wound Referring Physician Referring Physician: Shauna Identification/Chief Complaint Chief Complaint Right foot wound Source Source: Chart review, Patient History of Present Illness Reason for Visit: Patient is a pleasant 54-year-old with some neuropathy who has had a wound on the plantar aspect of his foot for several months. He is uncertain as to the exact timeframe. He has been doing wound care treatments but developed worsening drainage redness and swelling which prompted his admission to our facility. He denies any fevers or chills right now. He feels like the redness is a little bit better since being on IV antibiotics. Past Medical History Cardiovascular: CAD, HTN, Hyperlipidemia, Other (PAD) CENTRAL NERVOUS SYSTEM: Periperal neuropathy Psych: Anxiety, Depression Endocrine: Diabetes Past Surgical History Past Surgical History: Hernia Repair, Other (left great toe amputation ) Family History Family History: Diabetes, Hypertension Social History No ALCOHOL: social Lives: with Family Current Medications Current Medications Current Medications Ondansetron HCl (Zofran) 4 mg 1X ONCE IVP Last administered on 09/26/19at 16:54; Start 09/26/19 at 16:45; Stop 09/26/19 at 16:46; Status DC Morphine Sulfate (Morphine Sulfate) 4 mg 1X ONCE IV Last administered on 09/26/19at 16:55; Start 09/26/19 at 16:45; Stop 09/26/19 at 16:46; Status DC Vancomycin HCl 250 ml @ 250 mls/hr 1X ONCE IV ; Start 09/26/19 at 16:45; Stop 09/26/19 at 16:44; Status DC Vancomycin HCl 2 gm/Sodium Chloride 500 ml @ 250 mls/hr ONCE ONCE IV Last administered on 09/26/19at 16:55; Start 09/26/19 at 17:00; Stop 09/26/19 at 18:59; Status DC Sodium Chloride 1,000 ml @ 1,000 mls/hr 1X ONCE IV Last administered on 09/26/19at 16:54; Start 09/26/19 at 17:00; Stop 09/26/19 at 17:59; Status DC Morphine Sulfate (Morphine Sulfate) 4 mg 1X ONCE IV Last administered on 09/26/19at 18:42; Start 09/26/19 at 18:15; Stop 09/26/19 at 18:16; Status DC Clindamycin Phosphate 50 ml @ 100 mls/hr Q8HRS IV Last administered on 09/30/19at 04:45; Start 09/26/19 at 20:30 Aspirin (Ecotrin) 81 mg DAILYWBKFT PO Last administered on 09/29/19at 09:01; Start 09/27/19 at 08:00 Isosorbide Mononitrate (Imdur) 30 mg DAILY PO Last administered on 09/29/19at 09:01; Start 09/27/19 at 09:00 Lisinopril (Prinivil) 20 mg DAILY PO Last administered on 09/29/19 09:16; Start 09/27/19 at 09:00 Metoprolol Succinate (Toprol Xl) 25 mg DAILY PO Last administered on 09/29/19at 09:02; Start 09/27/19 at 09:00 Atorvastatin Calcium (Lipitor) 5 mg HS PO Last administered on 09/29/19at 21:06; Start 09/26/19 at 22:00 Insulin Human Lispro (HumaLOG) 0-7 UNITS TIDWMEALS SQ ; Start 09/27/19 at 08:00; Stop 09/26/19 at 22:59; Status DC Dextrose (Dextrose 50%-Water Syringe) 12.5 gm PRN Q15MIN PRN IV SEE COMMENTS; Start 09/26/19 at 21:45 Gabapentin (Neurontin) 300 mg PRN TID PRN PO NEUROPATHIC PAIN Last administered on 09/29/19at 21:06; Start 09/26/19 at 23:00 Lorazepam (Ativan) 0.5 mg PRN Q4HRS PRN PO ANXIETY / AGITATION Last administered on 09/29/19at 21:06; Start 09/26/19 at 23:00 Oxycodone/ Acetaminophen (Percocet 5/325) 1 tab PRN Q6HRS PRN PO PAIN Last administered on 09/28/19at 16:09; Start 09/26/19 at 23:00 Hydromorphone HCl (Dilaudid) 0.2 mg PRN Q2HR PRN IVP PAIN; Start 09/26/19 at 23:00 Insulin Human Lispro (HumaLOG) 0-7 UNITS TIDWMEALS SQ Last administered on 09/27at 08:24; Start 09/26/19 at 23:00; Stop 09/28/19 at 11:39; Status DC Acetaminophen (Tylenol) 650 mg PRN Q6HRS PRN PO FEVER > 100.5'F Last administered on 09/30/19at 00:10; Start 09/27/19 at 03:30 Insulin Glargine (Lantus Syringe) 10 unit BID SQ Last administered on 09/28/19at 09:10; Start 09/27/19 at 21:00; Stop 09/28/19 at 11:39; Status DC Piperacillin Sod/ Tazobactam Sod (Zosyn Per Pharmacy) 1 each PRN DAILY PRN MC SEE COMMENTS; Start 09/28/19 at 08:15 Daptomycin 590 mg/ Sodium Chloride 50 ml @ 100 mls/hr Q24H IV Last administered on 09/29/19at 09:18; Start 09/28/19 at 08:30 Micafungin Sodium 100 mg/Dextrose 100 ml @ 100 mls/hr Q24H IV Last administered on 09/29/19at 10:00; Start 09/28/19 at 10:00 Piperacillin Sod/ Tazobactam Sod 3.375 gm/Sodium Chloride 50 ml @ 100 mls/hr Q6HRS IV Last administered on 09/30/19at 06:18; Start 09/28/19 at 09:00 Polyethylene Glycol (miraLAX PACKET) 17 gm PRN DAILY PRN PO CONSTIPATION Last administered on 09/29/19at 17:43; Start 09/28/19 at 09:30 Polyethylene Glycol (miraLAX PACKET) 17 gm 1X ONCE PO Last administered on 09/28/19at 11:19; Start 09/28/19 at 09:30; Stop 09/28/19 at 09:34; Status DC Insulin Glargine (Lantus Syringe) 20 unit DAILY SQ Last administered on 09/29/19at 09:23; Start 09/29/19 at 09:00 Insulin Human Lispro (HumaLOG) 0-9 UNITS TIDWMEALS SQ Last administered on 09/29/19at 18:06; Start 09/28/19 at 12:00 Dextrose (Dextrose 50%-Water Syringe) 12.5 gm PRN Q15MIN PRN IV SEE COMMENTS; Start 09/28/19 at 11:45 Lactobacillus Rhamnosus (Culturelle) 1 cap BID PO Last administered on 09/29/19at 21:06; Start 09/28/19 at 21:00 Gadoterate Meglumine (Dotarem) 22.8 ml 1X ONCE IVP Last administered on 09/28/19at 15:36; Start 09/28/19 at 15:30; Stop 09/28/19 at 15:31; Status DC Enoxaparin Sodium (Lovenox 40mg Syringe) 40 mg Q24H SQ Last administered on 09/29/19at 17:44; Start 09/29/19 at 18:00 Zolpidem Tartrate (Ambien) 5 mg PRN QHS PRN PO INSOMNIA, MAY REPEAT IN 1HR Last administered on 09/29/19at 23:52; Start 09/29/19 at 21:45 Diphenhydramine HCl (Benadryl) 25 mg PRN QHS PRN PO INSOMNIA 1ST CHOICE; Start 09/29/19 at 21:45 Propofol (Diprivan) 200 mg STK-MED ONCE IV ; Start 09/30/19 at 07:02; Stop 09/30/19 at 07:03; Status DC Lidocaine HCl (Lidocaine Pf 2% Vial) 5 ml STK-MED ONCE .ROUTE ; Start 09/30/19 at 07:02; Stop 09/30/19 at 07:03; Status DC Fentanyl Citrate (Fentanyl 2ml Vial) 100 mcg STK-MED ONCE .ROUTE ; Start 09/30/19 at 07:03; Stop 09/30/19 at 07:03; Status DC Lidocaine HCl (Lidocaine 1% 20ml Vial) 20 ml STK-MED ONCE .ROUTE ; Start 09/30/19 at 07:04; Stop 09/30/19 at 07:04; Status DC Bupivacaine HCl (Sensorcaine Mpf 0.5%) 30 ml STK-MED ONCE .ROUTE ; Start 09/30/19 at 07:04; Stop 09/30/19 at 07:05; Status DC Morphine Sulfate (Morphine Sulfate) 2 mg STK-MED ONCE .ROUTE ; Start 09/30/19 at 07:40; Stop 09/30/19 at 07:40; Status DC Active Scripts Active Reported Novolin R (Insulin Regular, Human) 100 Unit/1 Ml Vial 21 Units SQ BIDACHS Lovastatin 40 Mg Tablet 40 Mg PO HS Aspirin Ec (Aspirin) 81 Mg Tablet.dr 1 Tab PO DAILY Isosorbide Mononitrate Er (Isosorbide Mononitrate) 30 Mg Tab.er.24h 1 Tab PO DAILY Metoprolol Succinate ( Xl ) (Metoprolol Succinate) 25 Mg Tab.er.24h 25 Mg PO DAILY Lisinopril 20 Mg Tablet 1 Tab PO DAILY Hydrochlorothiazide Tablet (Hydrochlorothiazide) 25 Mg Tablet 25 Mg PO DAILY Tresiba Flextouch U-100 (Insulin Degludec) 100 Unit/1 Ml Insuln.pen 20 Unit SQ HS Fenofibrate 150 Mg Capsule 160 Mg PO DAILY Novolin N (Nph, Human Insulin Isophane) 100 Unit/1 Ml Vial 16 Unit SQ BIDBFRMEAL Allergies Allergies: Coded Allergies: fentanyl (Verified Allergy, Severe, hives, itching, 01/15/17) ROS General: No: Chills, Night Sweats, Fatigue, Malaise, Appetite, Other PSYCHOLOGICAL ROS: No: Anxiety, Behavioral Disorder, Concentration difficultie, Decreased libido, Depression, Disorientation, Hallucinations, Hostility, Irritablity, Memory difficulties, Mood Swings, Obsessive thoughts, Physical abuse, Sexual abuse, Sleep disturbances, Suicidal ideation, Other Eyes: No Blurry vision, No Decreased vision, No Double vision, No Dry eyes, No Excessive tearing, No Eye Pain, No Itchy Eyes, No Loss of vision, No Photophobia, No Scotomata, No Uses contacts, No Uses glasses, No Other HEENT: No: Heacaches, Visual Changes, Hearing change, Nasal congestion, Nasal discharge, Oral lesions, Sinus pain, Sore Throat, Epistaxis, Sneezing, Snoring, Tinnitus, Vertigo, Vocal changes, Other ALLERGY AND IMMUNOLOGY: No: Hives, Insect Bite Sensitivity, Itchy/Watery Eyes, Nasal Congestion, Post Nasal Drip, Seasonal Allergies, Other Hematological and Lymphatic: No: Bleeding Problems, Blood Clots, Blood Transfusions, Brusing, Night Sweats, Pallor, Swollen Lymph Nodes, Other ENDOCRINE: No: Breast Changes, Galactorrhea, Hair Pattern Changes, Hot Flashes, Malaise/lethargy, Mood Swings, Palpitations, Polydipsia/polyuria, Skin Changes, Temperature Intolerance, Unexpected Weight Changes, Other Respiratory: No: Cough, Hemoptysis, Orthopnea, Pleuritic Pain, Shortness of breath, SOB with excertion, Sputum Changes, Stridor, Tachypnea, Wheezing, Other Cardiovascular: No Chest Pain, No Palpitations, No Orthopnea, No Paroxysmal Noc. Dyspnea, No Edema, No Lt Headedness, No Other Gastrointestinal: No Nausea, No Vomiting, No Abdominal Pain, No Diarrhea, No Constipation, No Melena, No Hematochezia, No Other Genitourinary: No Dysuria, No Frequency, No Incontinence, No Hematuria, No Retention, No Discharge, No Urgency, No Pain, No Flank Pain, No Other, No , No , No , No , No , No , No Musculoskeletal: Yes Pain In: (Right foot) Neurological: No Behavorial Changes, No Bowel/Bladder ControlChng, No Confusion, No Dizziness, No Gait Disturbance, No Headaches, No Impaired Coord/balance, No Memory Loss, No Numbness/Tingling, No Seizures, No Speech Problems, No Tremors, No Visual Changes, No Weakness, No Other Skin: No Dry Skin, No Eczema, No Hair Changes, No Lumps, No Mole Changes, No Mottling, No Nail Changes, No Pruritus, No Rash, No Skin Lesion Changes, No Other, No Acne Physical Exam General: Alert, Oriented X3, No acute distress HEENT: Atraumatic, EOMI Lungs: Other (Respirations are unlabored.) Heart: Regular rate Abdomen: Soft, No tenderness Extremities: Other (Dorsalis pedis 1+ bilaterally) Skin: Other (Cellulitis to dorsum of foot spreading to distal tibial region) Neuro: Normal speech, Strength at 5/5 X4 ext, Other (Decreased sensation from ankles distally otherwise normal) Psych/Mental Status: Mental status NL, Mood NL MUSCULOSKELETAL: Other (His right foot has cellulitis and edema. He has about a dime size wound over his fourth metatarsal head on the plantar aspect. The wound does probe down to bone. His fourth toe does have a dusky appearance) Vitals VITALS Vital Signs Date Time Temp Pulse Resp B/P (MAP) Pulse Ox O2 Delivery O2 Flow Rate FiO2 09/30/19 03:00 98.9 89 20 135/54 (81) 98 Room Air 98.9 Labs Labs Laboratory Tests Test 09/28/19 12:00 09/28/19 17:00 09/28/19 20:28 09/29/19 07:05 Glucose (Fingerstick) 210 mg/dL (70-99) 208 mg/dL (70-99) 257 mg/dL (70-99) 238 mg/dL (70-99) Test 09/29/19 07:30 09/29/19 11:11 09/29/19 16:37 09/29/19 17:30 White Blood Count 8.8 x10^3/uL (4.0-11.0) Red Blood Count 3.81 x10^6/uL (4.30-5.70) Hemoglobin 11.8 g/dL (13.0-17.5) Hematocrit 34.7 % (39.0-53.0) Mean Corpuscular Volume 91 fL (79-100) Mean Corpuscular Hemoglobin 31 pg (25-35) Mean Corpuscular Hemoglobin Concent 34 g/dL (31-37) Red Cell Distribution Width 12.2 % (11.5-14.5) Platelet Count 198 x10^3/uL (140-400) Neutrophils (%) (Auto) 84 % (31-73) Lymphocytes (%) (Auto) 7 % (24-48) Monocytes (%) (Auto) 8 % (0-9) Eosinophils (%) (Auto) 1 % (0-3) Basophils (%) (Auto) 0 % (0-3) Neutrophils # (Auto) 7.4 x10^3/uL (1.8-7.7) Lymphocytes # (Auto) 0.6 x10^3/uL (1.0-4.8) Monocytes # (Auto) 0.7 x10^3/uL (0.0-1.1) Eosinophils # (Auto) 0.1 x10^3/uL (0.0-0.7) Basophils # (Auto) 0.0 x10^3/uL (0.0-0.2) Sodium Level 134 mmol/L (136-145) Potassium Level 4.3 mmol/L (3.5-5.1) Chloride Level 97 mmol/L (98-107) Carbon Dioxide Level 26 mmol/L (21-32) Anion Gap 11 (6-14) Blood Urea Nitrogen 14 mg/dL (8-26) Creatinine 1.1 mg/dL (0.7-1.3) Estimated GFR (Cockcroft-Gault) 69.2 Glucose Level 261 mg/dL (70-99) Calcium Level 8.4 mg/dL (8.5-10.1) Glucose (Fingerstick) 299 mg/dL (70-99) 289 mg/dL (70-99) SARS-CoV-2 Antigen (Rapid) Negative (NEGATIVE) Test 09/29/19 21:11 09/30/19 07:42 Glucose (Fingerstick) 222 mg/dL (70-99) 236 mg/dL (70-99) Laboratory Tests Test 09/29/19 11:11 09/29/19 16:37 09/29/19 17:30 09/29/19 21:11 Glucose (Fingerstick) 299 mg/dL (70-99) 289 mg/dL (70-99) 222 mg/dL (70-99) SARS-CoV-2 Antigen (Rapid) Negative (NEGATIVE) Test 09/30/19 07:42 Glucose (Fingerstick) 236 mg/dL (70-99) Images Images X-ray and MRI were reviewed. Assessment/Plan Assessment/Plan Given the longstanding nature of his open wound, my physical examination and imaging findings, I discussed I&D, and ray amputation with him. We also did di scuss placement of a wound VAC if needed. He elected to proceed. LAM LIVE II, MD Sep 30, 2019 08:00
--- NOTE | 2019-09-30 08:02 | PDOC4 ---
Operative Note Operative Note Date of procedure: 09/30/2019 Surgeon: Dameon Live Room Service Food Service Attendant: Bibi Chun Preoperative diagnosis: #1 likely osteomyelitis at fourth metatarsal 2. 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 Anesthesia: General Findings: Gross purulence around metatarsal, metatarsal head was quite friable Specimens: Swabs and tissue were sent for culture, bone was sent for culture Tourniquet time: Less than 60 minutes Blood loss: 10 mL Reason for procedure: Patient is a pleasant 54-year-old gentleman who I was asked to see in consultation for his foot infection. Please see my consult note for further details. He and I had a discussion of the risks, benefits, and alternatives to the above procedure and he wished to proceed. Description of procedure: Patient was greeted in the preoperative holding area by myself the correct extremity and digit were verified and marked. He was taken to the operative suite, his antibiotics were started with his in the OR. Once in the operating room, he was transferred gently supine to the operating room table and secured to the bed with all pressure points padded, a bump under his right hip and nonsterile tourniquet taped in place to his right upper thigh. He had had a successful induction of a general anesthetic. We then used Betadine to prep his right lower extremity and draped in her usual sterile fashion. We then conducted our standard preoperative timeout. I then began the procedure by drawing a tennis racquet type domitila on his skin. [place] was used to exsanguinate the extremity. Tourniquet was insufflated to 250 mmHg. I then incised skin full-thickness with a scalpel and sharply delivered the toe from the operative field. I then inspected the operative field and noted fair amount of purulence around the distal metatarsal region and necrotic tissue. I irrigated this out a little bit for visualization after sending samples. I then used a combination of a scalpel and rondure to debride the wound. After this, I removed the distal portion of the metatarsal with a saw and a dorsal distal plantar proximal fashion. This was delivered from the operative field. I then continued my irrigation and debridement using a total of about 2000 mL of fluid. At the end, felt everything looked fairly clean. Given the quality of the surrounding soft tissues which were quite macerated I elected to not try to close this and instead placed a wound VAC. To wound VAC sponges were left in place, 1 tracking from the wound bed to the plantar foot wound and the other on the dorsal aspect of the operative incision area. After making sure we had a good seal with the wound VAC in place, the remainder of the leg was cleansed and dried and we had taken her drapes down. He was then awakened from anesthesia and transferred on the spine to the hospital bed. Postoperative plan is to readmit her on the floor under the care of his primary team. I will follow mark causey. DAMEON LIVE II, MD Sep 30, 2019 08:02
[2019-09-30] MEDS ORDERED: ONDANSETRON PF 4 MG/2 ML VIAL. ONE (08:06)
[2019-09-30] MEDS ORDERED: SEVOFLURANE 31 TO 60 MINUTES. IH ONE (08:06)
[2019-09-30] MEDS ORDERED: IV RINGERS,LACTATED 1000ML 1,000 ML IV SCH (08:08)
[2019-09-30] MEDS ORDERED: PROCHLORPERAZINE 10 MG/2 ML VIAL. IV PRN (08:15)
[2019-09-30] MEDS ORDERED: ONDANSETRON PF 4 MG/2 ML VIAL. IV PRN (08:15)
[2019-09-30] MEDS ORDERED: LIDOCAINE 1% PF 2 ML VIAL. ID PRN (08:15)
[2019-09-30] MEDS ORDERED: ceFAZolin SODIUM IV Push 1 GM VIAL. IVP ONE (08:22)
[2019-09-30] MEDS: DAPTOmycin (GENERIC) IVPB 590 MG in IV NORMAL SALINE 50ML 50 ML IV SCH (08:30)
[2019-09-30] MEDS: LACTOBACILLUS RHAMNOSUS GG 1 CAPSULE. PO SCH ×2 (09:28→20:26)
[2019-09-30] MEDS: ASPIRIN ENTERIC COATED 81 MG TABLET.DR. PO SCH (09:28)
[2019-09-30] MEDS: METOPROLOL SUCC 24HR ER 25 MG TAB.ER.24H. PO SCH (09:28)
[2019-09-30] MEDS: ISOSORBIDE MONONITRATE ER 30 MG TAB.ER.24H PO SCH (09:28)
[2019-09-30] MEDS: LISINOPRIL 20 MG TABLET PO SCH (09:29)
[2019-09-30] MEDS: MICAFUNGIN 100 MG in IV DEXTROSE 5% 100ML 100 ML IV SCH (09:30)
[2019-09-30] MEDS: INSULIN LISPRO 300 UNITS/3 ML VIAL. SQ SCH ×3 (09:45→17:17)
[2019-09-30] MEDS: INSULIN GLARGINE SYRINGE. SQ SCH (09:45)
[2019-09-30] MEDS: oxyCODONE/APAP 5/325 1 TAB TABLET PO PRN ×2 (09:46→20:28)
--- NOTE | 2019-09-30 11:19 | PDOC ---
[facility] PROGRESS NOTE Chief Complaint Chief Complaint Sepsis due to diabetic foot ulcer secondary to puncture wound status post fourth digit disarticulation 09/30/2019 Diabetes type 2uncontrolled Hypertension Peripheral neuropathy CAD Increase Lantus to 20 twice daily Continue Accu-Cheks and sliding scale Wound care nurse consultcontinue current management and follow-up wound cultures Appreciate infectious disease recommendations, have added Zosyn, daptomycin, micafungin. Follow-up wound and blood cultures Will continue to monitor extremity for worsening erythema LRINEC score is less than 4 which is low risk for nec Fasc Accu-Cheks and regular insulin sliding scale In hospital glucose level goals of between 140-1 80 Continue IV vancomycin and IV clindamycin Tetanus vaccine is up-to-date Lovenox for DVT prophylaxis ADA diet Full code Discussed with RN Dispo pending wound care and follow-up wound cultures History of Present Illness History of Present Illness 54-year-old male with past medical history of diabetes type 2, hypertension, diabetic neuropathy. Comes to the ED with increasing right foot pain. He states that he had stepped on attack about 2 weeks ago but did not realize it until today that he had stepped on attack that was about 1 cm long. Patient denies any pain or bleeding. Patient denies any falls or trauma. Patient states that he is compliant with his diabetes management. 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 But he had no's insurance at that time and he never followed up with that. 09/30/2019 No acute events overnight. Pain is controlled. Patient continues have fevers. We will continue broad-spectrum antibiotics per ID stewardship. Patient's chart, labs, images were reviewed and discussed with RN 09/29/2019 Patient seen and examined bedside today. Patient is resting comfortably. No acute events overnight. Patient had a fever 101.6. No suicidal ideation at this time. Patient's chart, labs, images were reviewed and discussed with RN 09/28/2019 Patient seen and examined today. No acute events overnight. Patient continues to have fevers. Antibiotics have been broadened by infectious disease. Patient continues to have flat affect. No suicidal ideation or homicidal ideation at this time. Patient's chart, labs, images were reviewed and discussed with RN 09/27/19 Patient seen and examined today. Fever 101.7 overnight chart reviewed Vitals/I&O Vitals/I&O: Vital Signs Date Time Temp Pulse Resp B/P (MAP) Pulse Ox O2 Delivery O2 Flow Rate FiO2 09/30/19 09:29 85 146/70 09/30/19 09:05 Room Air 09/30/19 09:00 99.4 18 96 99.4 09/30/19 08:45 8 I & O 09/29/19 09/29/19 09/30/19 15:00 23:00 07:00 Intake Total 360 ml 900 ml Output Total 300 ml Balance 60 ml 900 ml Physical Exam Physical Exam: CONSTITUTIONAL: He is lying in bed. He is cooperative. He is in no acute distress. He looks a little discouraged. HEENT: Pupils equal and reactive with normal conjunctivae. Oral cavity, pharynx is clear. NECK: Supple. Good range of motion. LUNGS: Clear to auscultation bilaterally. HEART: S1, S2. ABDOMEN: Obese, soft, nontender. No guarding, no rebound. EXTREMITIES: Without clubbing or cyanosis. Left great toe got a clean amputation, well-healed site. Right lower extremity has less erythema and swelling to the right foot and lower leg and still warmth. He has some Charcot deformity and some edema and some mild small vesicles on the anterior aspect that appear to be drying. SKIN: Otherwise, warm to touch. NEUROLOGIC: He is nonfocal, answers questions, moves all extremities. PSYCHIATRIC: Affect is somewhat flat. General: Alert, Oriented X3, No acute distress Heart: Regular rate Abdomen: Soft, No tenderness Extremities: Other (Dorsalis pedis 1+ bilaterally) Skin: Other (Cellulitis to dorsum of foot spreading to distal tibial region) Labs Labs: Laboratory Tests Test 09/29/19 16:37 09/29/19 17:30 09/29/19 21:11 09/30/19 07:42 Glucose (Fingerstick) 289 mg/dL (70-99) 222 mg/dL (70-99) 236 mg/dL (70-99) SARS-CoV-2 Antigen (Rapid) Negative (NEGATIVE) Test 09/30/19 09:26 Glucose (Fingerstick) 253 mg/dL (70-99) Comment Review of Relevant I have reviewed the following items domitila (where applicable) has been applied. Medications: Current Medications Medications (Trade) Dose Ordered Sig/Matteo Route PRN Reason Start Time Stop Time Status Last Admin Dose Admin Enoxaparin Sodium (Lovenox 40mg Syringe) 40 mg Q24H SQ 09/29/19 18:00 09/29/19 17:44 Zolpidem Tartrate (Ambien) 5 mg PRN QHS PRN PO INSOMNIA, MAY REPEAT IN 1HR 09/29/19 21:45 09/29/19 23:52 Justicifation of Admission Dx: Justifications for Admission: Justification of Admission Dx: Yes Sepsis: Infection Cellulitis: Cellulitis ASHUTOSH KNAPP MD Sep 30, 2019 11:19
[2019-09-30] MEDS: LORazepam 0.5 MG TABLET PO PRN ×2 (11:39→20:29)
[2019-09-30] MEDS: ENOXAPARIN 40 MG/0.4 ML SYRINGE. SQ SCH (17:35)
[2019-09-30] MEDS: GABAPENTIN 300 MG CAPSULE. PO PRN (20:26)
[2019-09-30] MEDS: ATORVASTATIN CALCIUM 10 MG TABLET. PO SCH (20:27)
[2019-09-30] MEDS ORDERED: INSULIN GLARGINE SYRINGE. SQ SCH (21:00)
[2019-10-01] MEDS: PIPERACILLIN/TAZOBACTAM 3.375 GM in IV NORMAL SALINE 50ML 50 ML IV SCH ×4 (00:24→17:44)
[2019-10-01] MEDS: LORazepam 0.5 MG TABLET PO PRN ×4 (00:55→22:07)
[2019-10-01 03:00] VITALS: BP 134/68
--- NOTE | 2019-10-01 06:32 | PDOC ---
Infectious Disease Note Subjective Subjective No BM but has not taken laxitives Fever some better.O/w ok Vital Sign Vital Signs Vital Signs Date Time Temp Pulse Resp B/P (MAP) Pulse Ox O2 Delivery O2 Flow Rate FiO2 10/01/19 03:00 98.7 81 18 134/68 (90) 94 Room Air 98.7 09/30/19 08:45 8 Physical Exam PHYSICAL EXAM CONSTITUTIONAL: He is lying in bed. He is cooperative. He is in no acute distress. He looks better HEENT: Pupils equal and reactive with normal conjunctivae. Oral cavity, pharynx is clear. NECK: Supple. Good range of motion. LUNGS: Clear to auscultation bilaterally. HEART: S1, S2. ABDOMEN: Obese, soft, nontender. No guarding, no rebound. EXTREMITIES: Without clubbing or cyanosis. Left great toe got a clean amputation, well-healed site. Right lower extremity has less erythema and swelling Vac in place. He has some Charcot deformity and some edema and some mild small vesicles on the anterior aspect that appear to be drying. SKIN: Otherwise, warm to touch. NEUROLOGIC: He is nonfocal, answers questions, moves all extremities. PSYCHIATRIC: Affect is somewhat flat but better. Labs Lab Laboratory Tests Test 09/30/19 07:42 09/30/19 09:26 09/30/19 11:22 09/30/19 16:11 Glucose (Fingerstick) 236 mg/dL (70-99) 253 mg/dL (70-99) 253 mg/dL (70-99) 235 mg/dL (70-99) Test 09/30/19 19:43 Glucose (Fingerstick) 163 mg/dL (70-99) Micro MRI IMPRESSION: 1. Deep plantar ulceration subjacent to the fourth metatarsal head with a sinus tract to the capsular undersurface. Abnormal soft tissue and/or complex fluid surrounds the 4th MTP joint with intermixed gas and extend along the 4th rays phalanges. There would presumably be osteomyelitis at least surrounding the 4th MTP joint given the apparent depth of the ulcer/sinus tract and gas but there is no loss of T1 marrow signal to confirm. It is possible that there is osteomyelitis but not yet to the extent to manifest on MRI. Consider probing the ulcer to determine its depth. If to bone, osteomyelitis is present by convention. 2. Advanced Charcot arthropathy to varying degrees throughout the midfoot, hindfoot and ankle. 3. Edematous and enhancing soft tissues mainly throughout the forefoot and extending along the midfoot compatible with cellulitis. There is likely some devitalized/necrotic soft tissues at the distal forefoot as well. 4. Signal changes of the intrinsic foot musculature either on account of myositis, denervation or a combination of both. Microbiology 09/26/19 Blood Culture - Preliminary, Resulted NO GROWTH AFTER 1 DAY Objective Assessment S/p open Right fourth toe ray amputation 09/29 Right foot infection Fever - persists but curve now improving Leukocytosis - better DM skin yeast infection Plan Plan of Care Labs in am Cont Zosyn/Dapto/Micafungin now Hope fever to further resolve post op F/u cults D/w nursing ERROL SHABAZZ MD Oct 01, 2019 06:32
[2019-10-01] MEDS: oxyCODONE/APAP 5/325 1 TAB TABLET PO PRN ×3 (06:48→22:07)
[2019-10-01 07:00] VITALS: BP 140/74
[2019-10-01] MEDS: ISOSORBIDE MONONITRATE ER 30 MG TAB.ER.24H PO SCH (08:56)
[2019-10-01] MEDS: ASPIRIN ENTERIC COATED 81 MG TABLET.DR. PO SCH (08:56)
[2019-10-01] MEDS: LACTOBACILLUS RHAMNOSUS GG 1 CAPSULE. PO SCH ×2 (08:56→21:00)
[2019-10-01] MEDS: LISINOPRIL 20 MG TABLET PO SCH (08:57)
[2019-10-01] MEDS: DAPTOmycin (GENERIC) IVPB 590 MG in IV NORMAL SALINE 50ML 50 ML IV SCH (08:57)
[2019-10-01] MEDS: METOPROLOL SUCC 24HR ER 25 MG TAB.ER.24H. PO SCH (08:57)
[2019-10-01] MEDS: INSULIN GLARGINE SYRINGE. SQ SCH ×2 (09:09→21:07)
[2019-10-01] MEDS: INSULIN LISPRO 300 UNITS/3 ML VIAL. SQ SCH ×4 (09:09→21:03)
[2019-10-01] MEDS: MICAFUNGIN 100 MG in IV DEXTROSE 5% 100ML 100 ML IV SCH (10:01)
[2019-10-01 10:22] VITALS: BP 132/64
--- NOTE | 2019-10-01 11:23 | PDOC ---
[facility] PROGRESS NOTE Chief Complaint Chief Complaint Sepsis due to diabetic foot ulcer secondary to puncture wound status post fourth digit disarticulation 09/30/2019 Diabetes type 2uncontrolled Hypertension Peripheral neuropathy CAD Increase Lantus to 30 twice daily Continue Accu-Cheks and sliding scale Wound care nurse consultcontinue current management and follow-up wound cultures Appreciate infectious disease recommendations, have added Zosyn, daptomycin, micafungin. Follow-up wound and blood cultures Will continue to monitor extremity for worsening erythema Accu-Cheks and regular insulin sliding scale In hospital glucose level goals of between 140-1 80 Tetanus vaccine is up-to-date Lovenox for DVT prophylaxis ADA diet Full code Discussed with RN Dispo pending wound care and follow-up wound cultures History of Present Illness History of Present Illness 54-year-old male with past medical history of diabetes type 2, hypertension, diabetic neuropathy. Comes to the ED with increasing right foot pain. He states that he had stepped on attack about 2 weeks ago but did not realize it until today that he had stepped on attack that was about 1 cm long. Patient denies any pain or bleeding. Patient denies any falls or trauma. Patient states that he is compliant with his diabetes management. 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 But he had no's insurance at that time and he never followed up with that. 10/01/2019 No acute events overnight. Patient seen and examined bedside. There is decreasing erythema surrounding the wound VAC. Patient's chart, labs, images were reviewed and discussed with RN 09/30/2019 No acute events overnight. Pain is controlled. Patient continues have fevers. We will continue broad-spectrum antibiotics per ID stewardship. Patient's chart, labs, images were reviewed and discussed with RN 09/29/2019 Patient seen and examined bedside today. Patient is resting comfortably. No acute events overnight. Patient had a fever 101.6. No suicidal ideation at this time. Patient's chart, labs, images were reviewed and discussed with RN 09/28/2019 Patient seen and examined today. No acute events overnight. Patient continues to have fevers. Antibiotics have been broadened by infectious disease. Patient continues to have flat affect. No suicidal ideation or homicidal ideation at this time. Patient's chart, labs, images were reviewed and discussed with RN 09/27/19 Patient seen and examined today. Fever 101.7 overnight chart reviewed Vitals/I&O Vitals/I&O: Vital Signs Date Time Temp Pulse Resp B/P (MAP) Pulse Ox O2 Delivery O2 Flow Rate FiO2 10/01/19 10:22 98.6 77 18 132/64 (86) 93 Room Air 98.6 10/01/19 06:48 8.0 I & O 09/30/19 09/30/19 10/01/19 15:00 23:00 07:00 Intake Total 240 ml 1390 ml Output Total 10 ml Balance 230 ml 1390 ml Physical Exam Physical Exam: CONSTITUTIONAL: He is lying in bed. He is cooperative. He is in no acute distress. He looks better HEENT: Pupils equal and reactive with normal conjunctivae. Oral cavity, pharynx is clear. NECK: Supple. Good range of motion. LUNGS: Clear to auscultation bilaterally. HEART: S1, S2. ABDOMEN: Obese, soft, nontender. No guarding, no rebound. EXTREMITIES: Without clubbing or cyanosis. Left great toe got a clean amputation, well-healed site. Right lower extremity has less erythema and swelling Vac in place. SKIN: Otherwise, warm to touch. NEUROLOGIC: He is nonfocal, answers questions, moves all extremities. PSYCHIATRIC: Affect is somewhat flat but better. General: Alert, Oriented X3, No acute distress Heart: Regular rate Abdomen: Soft, No tenderness Extremities: Other (Dorsalis pedis 1+ bilaterally) Skin: Other (Cellulitis to dorsum of foot spreading to distal tibial region) Labs Labs: Laboratory Tests Test 09/30/19 16:11 09/30/19 19:43 10/01/19 07:16 Glucose (Fingerstick) 235 mg/dL (70-99) 163 mg/dL (70-99) 249 mg/dL (70-99) Comment Review of Relevant I have reviewed the following items domitila (where applicable) has been applied. Medications: Current Medications Medications (Trade) Dose Ordered Sig/Matteo Route PRN Reason Start Time Stop Time Status Last Admin Dose Admin Insulin Glargine (Lantus Syringe) 20 unit BID SQ 09/30/19 21:00 10/01/19 08:29 DC 09/30/19 20:30 Insulin Glargine (Lantus Syringe) 30 unit BID SQ 10/01/19 09:00 10/01/19 09:09 Justicifation of Admission Dx: Justifications for Admission: Justification of Admission Dx: Yes Sepsis: Infection Cellulitis: Cellulitis ASHUTOSH KNAPP MD Oct 01, 2019 11:23
[2019-10-01 15:07] VITALS: BP 136/69
[2019-10-01] MEDS: POLYETHYLENE GLYCOL 3350 17 GM PACKET. PO PRN (15:21)
[2019-10-01] MEDS: ENOXAPARIN 40 MG/0.4 ML SYRINGE. SQ SCH (17:43)
[2019-10-01 19:00] VITALS: BP 132/71
--- NOTE | 2019-10-01 19:22 | NUR ---
1845 patient transferred from the second floor to room 412. Patient oriented to the room and call light within reach. Report given to night nurse
[2019-10-01] MEDS: ATORVASTATIN CALCIUM 10 MG TABLET. PO SCH (21:01)
[2019-10-01] MEDS: ZOLPIDEM 5 MG TABLET. PO PRN (21:01)
[2019-10-01 23:00] VITALS: BP 139/79
[2019-10-02 03:00] VITALS: BP 135/71
[2019-10-02 03:08] LABS: HEMOGLOBIN A1C 8.6 % (4.8-5.6)
[2019-10-02 05:00] LABS: BASO % 0 % (0-3); EOS # 0.2 x10^3/uL (0.0-0.7); EOS % 3 % (0-3); HEMATOCRIT 33.5 % (39.0-53.0); HEMOGLOBIN 11.4 g/dL (13.0-17.5); LYMPH # 0.8 x10^3/uL (1.0-4.8); LYMPH % 14 % (24-48); MEAN CORPUSCULAR HEMOGLOBIN 31 pg (25-35); MEAN CORPUSCULAR HGB CONC 34 g/dL (31-37); MEAN CORPUSCULAR VOLUME 91 fL (79-100); MONO # 0.5 x10^3/uL (0.0-1.1); MONO % 10 % (0-9); NEUT # 3.8 x10^3/uL (1.8-7.7); NEUT % 72 % (31-73); PLATELET COUNT 219 x10^3/uL (140-400); RED BLOOD COUNT 3.67 x10^6/uL (4.30-5.70); RED CELL DISTRIBUTION WIDTH 12.3 % (11.5-14.5); WHITE BLOOD COUNT 5.2 x10^3/uL (4.0-11.0)
[2019-10-02 05:10] LABS: CALCIUM 8.6 mg/dL (8.5-10.1); CREATININE 1.1 mg/dL (0.7-1.3); GFR 69.2; POTASSIUM 4.1 mmol/L (3.5-5.1)
[2019-10-02] MEDS: LORazepam 0.5 MG TABLET PO PRN ×3 (06:00→18:00)
[2019-10-02] MEDS: oxyCODONE/APAP 5/325 1 TAB TABLET PO PRN ×3 (06:01→18:00)
[2019-10-02] MEDS: PIPERACILLIN/TAZOBACTAM 3.375 GM in IV NORMAL SALINE 50ML 50 ML IV SCH ×5 (06:01→23:54)
[2019-10-02 07:24] VITALS: BP 137/71
[2019-10-02] MEDS: LISINOPRIL 20 MG TABLET PO SCH (08:15)
[2019-10-02] MEDS: ISOSORBIDE MONONITRATE ER 30 MG TAB.ER.24H PO SCH (08:15)
[2019-10-02] MEDS: ASPIRIN ENTERIC COATED 81 MG TABLET.DR. PO SCH (08:16)
[2019-10-02] MEDS: METOPROLOL SUCC 24HR ER 25 MG TAB.ER.24H. PO SCH (08:16)
[2019-10-02] MEDS: LACTOBACILLUS RHAMNOSUS GG 1 CAPSULE. PO SCH ×2 (08:16→21:05)
[2019-10-02] MEDS: INSULIN GLARGINE SYRINGE. SQ SCH ×2 (08:21→21:11)
--- NOTE | 2019-10-02 08:30 | PDOC ---
Infectious Disease Note Subjective Subjective pt is feeling good ROS ROS no n/v/d/sob/fever Vital Sign Vital Signs Vital Signs Date Time Temp Pulse Resp B/P (MAP) Pulse Ox O2 Delivery O2 Flow Rate FiO2 10/02/19 07:24 98.4 75 16 137/71 (93) 94 Room Air 98.4 Physical Exam PHYSICAL EXAM CONSTITUTIONAL: He is lying in bed. He is cooperative. He is in no acute distress. He looks better HEENT: Pupils equal and reactive with normal conjunctivae. Oral cavity, pharynx is clear. NECK: Supple. Good range of motion. LUNGS: Clear to auscultation bilaterally. HEART: S1, S2. ABDOMEN: Obese, soft, nontender. No guarding, no rebound. EXTREMITIES: Without clubbing or cyanosis. Left great toe got a clean amputation, well-healed site. Right lower extremity has less erythema and swelling Vac in place. SKIN: Otherwise, warm to touch. NEUROLOGIC: He is nonfocal, answers questions, moves all extremities. PSYCHIATRIC: Affect is somewhat flat but better. Labs Lab Laboratory Tests Test 10/01/19 11:25 10/01/19 16:24 10/01/19 20:24 10/02/19 03:55 Glucose (Fingerstick) 307 mg/dL (70-99) 186 mg/dL (70-99) 221 mg/dL (70-99) White Blood Count 5.2 x10^3/uL (4.0-11.0) Red Blood Count 3.67 x10^6/uL (4.30-5.70) Hemoglobin 11.4 g/dL (13.0-17.5) Hematocrit 33.5 % (39.0-53.0) Mean Corpuscular Volume 91 fL (79-100) Mean Corpuscular Hemoglobin 31 pg (25-35) Mean Corpuscular Hemoglobin Concent 34 g/dL (31-37) Red Cell Distribution Width 12.3 % (11.5-14.5) Platelet Count 219 x10^3/uL (140-400) Neutrophils (%) (Auto) 72 % (31-73) Lymphocytes (%) (Auto) 14 % (24-48) Monocytes (%) (Auto) 10 % (0-9) Eosinophils (%) (Auto) 3 % (0-3) Basophils (%) (Auto) 0 % (0-3) Neutrophils # (Auto) 3.8 x10^3/uL (1.8-7.7) Lymphocytes # (Auto) 0.8 x10^3/uL (1.0-4.8) Monocytes # (Auto) 0.5 x10^3/uL (0.0-1.1) Eosinophils # (Auto) 0.2 x10^3/uL (0.0-0.7) Basophils # (Auto) 0.0 x10^3/uL (0.0-0.2) Sodium Level 134 mmol/L (136-145) Potassium Level 4.1 mmol/L (3.5-5.1) Chloride Level 98 mmol/L (98-107) Carbon Dioxide Level 32 mmol/L (21-32) Anion Gap 4 (6-14) Blood Urea Nitrogen 14 mg/dL (8-26) Creatinine 1.1 mg/dL (0.7-1.3) Estimated GFR (Cockcroft-Gault) 69.2 Glucose Level 223 mg/dL (70-99) Calcium Level 8.6 mg/dL (8.5-10.1) Test 10/02/19 07:36 Glucose (Fingerstick) 222 mg/dL (70-99) Micro Microbiology 09/30/19 Gram Stain - Final, Resulted 09/30/19 Aerobic and Anaerobic Culture, Resulted Pending 09/27/19 Blood Culture - Preliminary, Resulted NO GROWTH AFTER 4 DAYS Objective Assessment S/p open Right fourth toe ray amputation 09/29 Right foot infection Fever - persists but curve now improving Leukocytosis - better DM skin yeast infection Plan Plan of Care Labs in am Cont Zosyn/Dapto/Micafungin now Hope fever to further resolve post op F/u cults picc ss to arrange for home antibiotics D/w nursing RACHELE ARECHIGA MD Oct 02, 2019 08:30
--- NOTE | 2019-10-02 09:03 | PDOC ---
PROGRESS NOTES Chief Complaint Chief Complaint IMPRESSION Sepsis due to diabetic foot ulcer secondary to puncture wound status post fourth digit disarticulation 09/30/2019 Diabetes type 2uncontrolled Hypertension Peripheral neuropathy CAD PLAN Increase Lantus to 30 twice daily Continue Accu-Cheks and sliding scale Wound care nurse consultcontinue current management and follow-up wound cultures Appreciate infectious disease following Follow-up wound and blood cultures Will continue to monitor extremity for worsening erythema Accu-Cheks and regular insulin sliding scale In hospital glucose level goals of between 140-1 80 Tetanus vaccine is up-to-date Lovenox for DVT prophylaxis ADA diet Full code Discussed with RN Dispo pending wound care and follow-up wound cultures Cont Zosyn/Dapto/Micafungin IV History of Present Illness History of Present Illness 54-year-old male with past medical history of diabetes type 2, hypertension, diabetic neuropathy. Comes to the ED with increasing right foot pain. He states that he had stepped on attack about 2 weeks ago but did not realize it until today that he had stepped on attack that was about 1 cm long. Patient denies any pain or bleeding. Patient denies any falls or trauma. Patient states that he is compliant with his diabetes management. 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 But he had no's insurance at that time and he never followed up with that. 10/01/2019 No acute events overnight. Patient seen and examined bedside. There is decreasing erythema surrounding the wound VAC. Patient's chart, labs, images were reviewed and discussed with RN 09/30/2019 No acute events overnight. Pain is controlled. Patient continues have fevers. We will continue broad-spectrum antibiotics per ID stewardship. Patient's chart, labs, images were reviewed and discussed with RN 09/29/2019 Patient seen and examined bedside today. Patient is resting comfortably. No acute events overnight. Patient had a fever 101.6. No suicidal ideation at this time. Patient's chart, labs, images were reviewed and discussed with RN 09/28/2019 Patient seen and examined today. No acute events overnight. Patient continues to have fevers. Antibiotics have been broadened by infectious disease. Patient continues to have flat affect. No suicidal ideation or homicidal ideation at this time. Patient's chart, labs, images were reviewed and discussed with RN 09/27/19 Patient seen and examined today. Fever 101.7 overnight chart reviewed Vitals Vitals Vital Signs Date Time Temp Pulse Resp B/P (MAP) Pulse Ox O2 Delivery O2 Flow Rate FiO2 10/02/19 08:16 75 137/71 10/02/19 07:24 98.4 16 94 Room Air 98.4 Physical Exam Physical Exam CONSTITUTIONAL: He is lying in bed. He is cooperative. He is in no acute distress. He looks better HEENT: Pupils equal and reactive with normal conjunctivae. Oral cavity, pharynx is clear. NECK: Supple. Good range of motion. LUNGS: Clear to auscultation bilaterally. HEART: S1, S2. ABDOMEN: Obese, soft, nontender. No guarding, no rebound. EXTREMITIES: Without clubbing or cyanosis. Left great toe got a clean amputation, well-healed site. Right lower extremity has less erythema and swel ling Vac in place. SKIN: Otherwise, warm to touch. NEUROLOGIC: He is nonfocal, answers questions, moves all extremities. PSYCHIATRIC: Affect is somewhat flat but better. General: Alert, Oriented X3, No acute distress Heart: Regular rate Lungs: Clear Abdomen: Normal bowel sounds, Soft, No tenderness Extremities: Other (Dorsalis pedis 1+ bilaterally) Skin: Other (Cellulitis to dorsum of foot spreading to distal tibial region) Labs LABS Laboratory Tests Test 10/01/19 11:25 10/01/19 16:24 10/01/19 20:24 10/02/19 03:55 Glucose (Fingerstick) 307 mg/dL (70-99) 186 mg/dL (70-99) 221 mg/dL (70-99) White Blood Count 5.2 x10^3/uL (4.0-11.0) Red Blood Count 3.67 x10^6/uL (4.30-5.70) Hemoglobin 11.4 g/dL (13.0-17.5) Hematocrit 33.5 % (39.0-53.0) Mean Corpuscular Volume 91 fL (79-100) Mean Corpuscular Hemoglobin 31 pg (25-35) Mean Corpuscular Hemoglobin Concent 34 g/dL (31-37) Red Cell Distribution Width 12.3 % (11.5-14.5) Platelet Count 219 x10^3/uL (140-400) Neutrophils (%) (Auto) 72 % (31-73) Lymphocytes (%) (Auto) 14 % (24-48) Monocytes (%) (Auto) 10 % (0-9) Eosinophils (%) (Auto) 3 % (0-3) Basophils (%) (Auto) 0 % (0-3) Neutrophils # (Auto) 3.8 x10^3/uL (1.8-7.7) Lymphocytes # (Auto) 0.8 x10^3/uL (1.0-4.8) Monocytes # (Auto) 0.5 x10^3/uL (0.0-1.1) Eosinophils # (Auto) 0.2 x10^3/uL (0.0-0.7) Basophils # (Auto) 0.0 x10^3/uL (0.0-0.2) Sodium Level 134 mmol/L (136-145) Potassium Level 4.1 mmol/L (3.5-5.1) Chloride Level 98 mmol/L (98-107) Carbon Dioxide Level 32 mmol/L (21-32) Anion Gap 4 (6-14) Blood Urea Nitrogen 14 mg/dL (8-26) Creatinine 1.1 mg/dL (0.7-1.3) Estimated GFR (Cockcroft-Gault) 69.2 Glucose Level 223 mg/dL (70-99) Calcium Level 8.6 mg/dL (8.5-10.1) Test 10/02/19 07:36 Glucose (Fingerstick) 222 mg/dL (70-99) Comment Review of Relevant I have reviewed the following items domitila (where applicable) has been applied. Labs Laboratory Tests Test 09/30/19 09:26 09/30/19 11:22 09/30/19 16:11 09/30/19 19:43 Glucose (Fingerstick) 253 mg/dL (70-99) 253 mg/dL (70-99) 235 mg/dL (70-99) 163 mg/dL (70-99) Test 10/01/19 07:16 10/01/19 11:25 10/01/19 16:24 10/01/19 20:24 Glucose (Fingerstick) 249 mg/dL (70-99) 307 mg/dL (70-99) 186 mg/dL (70-99) 221 mg/dL (70-99) Test 10/02/19 03:55 10/02/19 07:36 White Blood Count 5.2 x10^3/uL (4.0-11.0) Red Blood Count 3.67 x10^6/uL (4.30-5.70) Hemoglobin 11.4 g/dL (13.0-17.5) Hematocrit 33.5 % (39.0-53.0) Mean Corpuscular Volume 91 fL (79-100) Mean Corpuscular Hemoglobin 31 pg (25-35) Mean Corpuscular Hemoglobin Concent 34 g/dL (31-37) Red Cell Distribution Width 12.3 % (11.5-14.5) Platelet Count 219 x10^3/uL (140-400) Neutrophils (%) (Auto) 72 % (31-73) Lymphocytes (%) (Auto) 14 % (24-48) Monocytes (%) (Auto) 10 % (0-9) Eosinophils (%) (Auto) 3 % (0-3) Basophils (%) (Auto) 0 % (0-3) Neutrophils # (Auto) 3.8 x10^3/uL (1.8-7.7) Lymphocytes # (Auto) 0.8 x10^3/uL (1.0-4.8) Monocytes # (Auto) 0.5 x10^3/uL (0.0-1.1) Eosinophils # (Auto) 0.2 x10^3/uL (0.0-0.7) Basophils # (Auto) 0.0 x10^3/uL (0.0-0.2) Sodium Level 134 mmol/L (136-145) Potassium Level 4.1 mmol/L (3.5-5.1) Chloride Level 98 mmol/L (98-107) Carbon Dioxide Level 32 mmol/L (21-32) Anion Gap 4 (6-14) Blood Urea Nitrogen 14 mg/dL (8-26) Creatinine 1.1 mg/dL (0.7-1.3) Estimated GFR (Cockcroft-Gault) 69.2 Glucose Level 223 mg/dL (70-99) Calcium Level 8.6 mg/dL (8.5-10.1) Glucose (Fingerstick) 222 mg/dL (70-99) Laboratory Tests Test 10/01/19 11:25 10/01/19 16:24 10/01/19 20:24 10/02/19 03:55 Glucose (Fingerstick) 307 mg/dL (70-99) 186 mg/dL (70-99) 221 mg/dL (70-99) White Blood Count 5.2 x10^3/uL (4.0-11.0) Red Blood Count 3.67 x10^6/uL (4.30-5.70) Hemoglobin 11.4 g/dL (13.0-17.5) Hematocrit 33.5 % (39.0-53.0) Mean Corpuscular Volume 91 fL (79-100) Mean Corpuscular Hemoglobin 31 pg (25-35) Mean Corpuscular Hemoglobin Concent 34 g/dL (31-37) Red Cell Distribution Width 12.3 % (11.5-14.5) Platelet Count 219 x10^3/uL (140-400) Neutrophils (%) (Auto) 72 % (31-73) Lymphocytes (%) (Auto) 14 % (24-48) Monocytes (%) (Auto) 10 % (0-9) Eosinophils (%) (Auto) 3 % (0-3) Basophils (%) (Auto) 0 % (0-3) Neutrophils # (Auto) 3.8 x10^3/uL (1.8-7.7) Lymphocytes # (Auto) 0.8 x10^3/uL (1.0-4.8) Monocytes # (Auto) 0.5 x10^3/uL (0.0-1.1) Eosinophils # (Auto) 0.2 x10^3/uL (0.0-0.7) Basophils # (Auto) 0.0 x10^3/uL (0.0-0.2) Sodium Level 134 mmol/L (136-145) Potassium Level 4.1 mmol/L (3.5-5.1) Chloride Level 98 mmol/L (98-107) Carbon Dioxide Level 32 mmol/L (21-32) Anion Gap 4 (6-14) Blood Urea Nitrogen 14 mg/dL (8-26) Creatinine 1.1 mg/dL (0.7-1.3) Estimated GFR (Cockcroft-Gault) 69.2 Glucose Level 223 mg/dL (70-99) Calcium Level 8.6 mg/dL (8.5-10.1) Test 10/02/19 07:36 Glucose (Fingerstick) 222 mg/dL (70-99) Microbiology 09/30/19 Gram Stain - Final, Resulted 09/30/19 Aerobic and Anaerobic Culture, Resulted Pending 09/27/19 Blood Culture - Preliminary, Resulted NO GROWTH AFTER 4 DAYS Medications Current Medications Ondansetron HCl (Zofran) 4 mg 1X ONCE IVP Last administered on 09/26/19at 16:54; Start 09/26/19 at 16:45; Stop 09/26/19 at 16:46; Status DC Morphine Sulfate (Morphine Sulfate) 4 mg 1X ONCE IV Last administered on 09/26/19at 16:55; Start 09/26/19 at 16:45; Stop 09/26/19 at 16:46; Status DC Vancomycin HCl 250 ml @ 250 mls/hr 1X ONCE IV ; Start 09/26/19 at 16:45; Stop 09/26/19 at 16:44; Status DC Vancomycin HCl 2 gm/Sodium Chloride 500 ml @ 250 mls/hr ONCE ONCE IV Last administered on 09/26/19at 16:55; Start 09/26/19 at 17:00; Stop 09/26/19 at 18:59; Status DC Sodium Chloride 1,000 ml @ 1,000 mls/hr 1X ONCE IV Last administered on 09/26/19at 16:54; Start 09/26/19 at 17:00; Stop 09/26/19 at 17:59; Status DC Morphine Sulfate (Morphine Sulfate) 4 mg 1X ONCE IV Last administered on 09/26/19at 18:42; Start 09/26/19 at 18:15; Stop 09/26/19 at 18:16; Status DC Clindamycin Phosphate 50 ml @ 100 mls/hr Q8HRS IV Last administered on 09/30/19at 04:45; Start 09/26/19 at 20:30; Stop 09/30/19 at 08:27; Status DC Aspirin (Ecotrin) 81 mg DAILYWBKFT PO Last administered on 10/02/19at 08:16; Start 09/27/19 at 08:00 Isosorbide Mononitrate (Imdur) 30 mg DAILY PO Last administered on 10/02/19 08:15; Start 09/27/19 at 09:00 Lisinopril (Prinivil) 20 mg DAILY PO Last administered on 10/02/19 08:15; Start 09/27/19 at 09:00 Metoprolol Succinate (Toprol Xl) 25 mg DAILY PO Last administered on 10/02/19 08:16; Start 09/27/19 at 09:00 Atorvastatin Calcium (Lipitor) 5 mg HS PO Last administered on 10/01/19at 21:01; Start 09/26/19 at 22:00 Insulin Human Lispro (HumaLOG) 0-7 UNITS TIDWMEALS SQ ; Start 09/27/19 at 08:00; Stop 09/26/19 at 22:59; Status DC Dextrose (Dextrose 50%-Water Syringe) 12.5 gm PRN Q15MIN PRN IV SEE COMMENTS; Start 09/26/19 at 21:45; Stop 09/30/19 at 08:26; Status DC Gabapentin (Neurontin) 300 mg PRN TID PRN PO NEUROPATHIC PAIN Last administered on 09/30/19at 20:26; Start 09/26/19 at 23:00 Lorazepam (Ativan) 0.5 mg PRN Q4HRS PRN PO ANXIETY / AGITATION Last administered on 10/02/19at 06:00; Start 09/26/19 at 23:00 Oxycodone/ Acetaminophen (Percocet 5/325) 1 tab PRN Q6HRS PRN PO PAIN Last administered on 10/02/19 06:01; Start 09/26/19 at 23:00 Hydromorphone HCl (Dilaudid) 0.2 mg PRN Q2HR PRN IVP PAIN; Start 09/26/19 at 23:00 Insulin Human Lispro (HumaLOG) 0-7 UNITS TIDWMEALS SQ Last administered on 09/28/19at 08:24; Start 09/26/19 at 23:00; Stop 09/28/19 at 11:39; Status DC Acetaminophen (Tylenol) 650 mg PRN Q6HRS PRN PO FEVER > 100.5'F Last administered on 09/30/19at 11:29; Start 09/27/19 at 03:30 Insulin Glargine (Lantus Syringe) 10 unit BID SQ Last administered on 09/28/19at 09:10; Start 09/27/19 at 21:00; Stop 09/28/19 at 11:39; Status DC Piperacillin Sod/ Tazobactam Sod (Zosyn Per Pharmacy) 1 each PRN DAILY PRN MC SEE COMMENTS; Start 09/28/19 at 08:15 Daptomycin 590 mg/ Sodium Chloride 50 ml @ 100 mls/hr Q24H IV Last administered on 10/01/19at 08:57; Start 09/28/19 at 08:30 Micafungin Sodium 100 mg/Dextrose 100 ml @ 100 mls/hr Q24H IV Last administered on 10/01/19at 10:01; Start 09/28/19 at 10:00 Piperacillin Sod/ Tazobactam Sod 3.375 gm/Sodium Chloride 50 ml @ 100 mls/hr Q6HRS IV Last administered on 10/02/19at 06:01; Start 09/28/19 at 09:00 Polyethylene Glycol (miraLAX PACKET) 17 gm PRN DAILY PRN PO CONSTIPATION Last administered on 10/01/19at 15:21; Start 09/28/19 at 09:30 Polyethylene Glycol (miraLAX PACKET) 17 gm 1X ONCE PO Last administered on 09/28/19at 11:19; Start 09/28/19 at 09:30; Stop 09/28/19 at 09:34; Status DC Insulin Glargine (Lantus Syringe) 20 unit DAILY SQ Last administered on 09/30/19at 09:45; Start 09/29/19 at 09:00; Stop 09/30/19 at 10:21; Status DC Insulin Human Lispro (HumaLOG) 0-9 UNITS TIDWMEALS SQ Last administered on 10/01/19at 21:03; Start 09/28/19 at 12:00 Dextrose (Dextrose 50%-Water Syringe) 12.5 gm PRN Q15MIN PRN IV SEE COMMENTS; Start 09/28/19 at 11:45 Lactobacillus Rhamnosus (Culturelle) 1 cap BID PO Last administered on 10/02/19at 08:16; Start 09/28/19 at 21:00 Gadoterate Meglumine (Dotarem) 22.8 ml 1X ONCE IVP Last administered on 09/28/19at 15:36; Start 09/28/19 at 15:30; Stop 09/28/19 at 15:31; Status DC Enoxaparin Sodium (Lovenox 40mg Syringe) 40 mg Q24H SQ Last administered on 10/01/19at 17:43; Start 09/29/19 at 18:00 Zolpidem Tartrate (Ambien) 5 mg PRN QHS PRN PO INSOMNIA, MAY REPEAT IN 1HR Last administered on 10/01/19at 21:01; Start 09/29/19 at 21:45 Diphenhydramine HCl (Benadryl) 25 mg PRN QHS PRN PO INSOMNIA 1ST CHOICE; Start 09/29/19 at 21:45 Propofol (Diprivan) 200 mg STK-MED ONCE IV ; Start 09/30/19 at 07:02; Stop 09/30/19 at 07:03; Status DC Lidocaine HCl (Lidocaine Pf 2% Vial) 5 ml STK-MED ONCE .ROUTE ; Start 09/30/19 at 07:02; Stop 09/30/19 at 07:03; Status DC Fentanyl Citrate (Fentanyl 2ml Vial) 100 mcg STK-MED ONCE .ROUTE ; Start 09/30/19 at 07:03; Stop 09/30/19 at 07:03; Status DC Lidocaine HCl (Lidocaine 1% 20ml Vial) 20 ml STK-MED ONCE .ROUTE ; Start 09/30/19 at 07:04; Stop 09/30/19 at 07:04; Status DC Bupivacaine HCl (Sensorcaine Mpf 0.5%) 30 ml STK-MED ONCE .ROUTE ; Start 09/30/19 at 07:04; Stop 09/30/19 at 07:05; Status DC Morphine Sulfate (Morphine Sulfate) 2 mg STK-MED ONCE .ROUTE ; Start 09/30/19 at 07:40; Stop 09/30/19 at 07:40; Status DC Ondansetron HCl (Zofran) 4 mg STK-MED ONCE .ROUTE ; Start 09/30/19 at 08:06; Stop 09/30/19 at 08:06; Status DC Sevoflurane (Ultane) 30 ml STK-MED ONCE IH ; Start 09/30/19 at 08:06; Stop 09/30/19 at 08:06; Status DC Ondansetron HCl (Zofran) 4 mg PRN Q6HRS PRN IV NAUSEA/VOMITING; Start 09/30/19 at 08:15; Stop 10/01/19 at 08:14; Status DC Ringer's Solution 1,000 ml @ 30 mls/hr Q24H IV ; Start 09/30/19 at 08:08; Stop 09/30/19 at 10:22; Status DC Lidocaine HCl (Xylocaine-Mpf 1% 2ml Vial) 2 ml PRN 1X PRN ID PRIOR TO IV START; Start 09/30/19 at 08:15; Stop 10/01/19 at 08:14; Status DC Prochlorperazine Edisylate (Compazine) 5 mg PACU PRN PRN IV NAUSEA, MRX1; Start 09/30/19 at 08:15; Stop 10/01/19 at 08:14; Status DC Cefazolin Sodium (Ancef) 1 gm STK-MED ONCE IVP ; Start 09/30/19 at 08:22; Stop 09/30/19 at 08:22; Status DC Insulin Glargine (Lantus Syringe) 20 unit BID SQ Last administered on 09/30/19at 20:30; Start 09/30/19 at 21:00; Stop 10/01/19 at 08:29; Status DC Insulin Glargine (Lantus Syringe) 30 unit BID SQ Last administered on 10/02/19at 08:21; Start 10/01/19 at 09:00 Active Scripts Active Reported Novolin R (Insulin Regular, Human) 100 Unit/1 Ml Vial 21 Units SQ BIDACHS Lovastatin 40 Mg Tablet 40 Mg PO HS Aspirin Ec (Aspirin) 81 Mg Tablet.dr 1 Tab PO DAILY Isosorbide Mononitrate Er (Isosorbide Mononitrate) 30 Mg Tab.er.24h 1 Tab PO DAILY Metoprolol Succinate ( Xl ) (Metoprolol Succinate) 25 Mg Tab.er.24h 25 Mg PO DAILY Lisinopril 20 Mg Tablet 1 Tab PO DAILY Hydrochlorothiazide Tablet (Hydrochlorothiazide) 25 Mg Tablet 25 Mg PO DAILY Tresiba Flextouch U-100 (Insulin Degludec) 100 Unit/1 Ml Insuln.pen 20 Unit SQ HS Fenofibrate 150 Mg Capsule 160 Mg PO DAILY Novolin N (Nph, Human Insulin Isophane) 100 Unit/1 Ml Vial 16 Unit SQ BIDBFRMEAL Vitals/I & O Vital Sign - Last 24 Hours 10/01/19 10/01/19 10/01/19 10/01/19 10:22 15:07 17:44 18:44 Temp 98.6 98.2 98.6 98.2 Pulse 77 108 Resp 18 18 B/P (MAP) 132/64 (86) 136/69 (91) Pulse Ox 93 91 91 O2 Delivery Room Air Room Air Room Air Room Air 10/01/19 10/01/19 10/01/19 10/01/19 19:00 20:00 22:07 23:00 Temp 98.8 98.3 98.8 98.3 Pulse 74 76 Resp 18 18 18 B/P (MAP) 132/71 (91) 139/79 (99) Pulse Ox 96 96 96 O2 Delivery Room Air Room Air Room Air Room Air 10/01/19 10/02/19 10/02/19 10/02/19 23:07 03:00 06:01 07:24 Temp 99.0 98.4 99.0 98.4 Pulse 77 75 Resp 18 18 16 B/P (MAP) 135/71 (92) 137/71 (93) Pulse Ox 96 95 95 94 O2 Delivery Room Air Room Air Room Air Room Air 10/02/19 10/02/19 10/02/19 08:15 08:15 08:16 Pulse 75 75 75 B/P (MAP) 137/71 137/71 137/71 Intake and Output 10/01/19 10/01/19 10/02/19 15:00 23:00 07:00 Intake Total 480 ml 720 ml Balance 480 ml 720 ml Justicifation of Admission Dx: Justifications for Admission: Justification of Admission Dx: Yes Sepsis: Infection Cellulitis: Cellulitis MARGRET TRINH MD Oct 02, 2019 09:03
[2019-10-02] MEDS: MICAFUNGIN 100 MG in IV DEXTROSE 5% 100ML 100 ML IV SCH (10:00)
[2019-10-02] MEDS: DAPTOmycin (GENERIC) IVPB 590 MG in IV NORMAL SALINE 50ML 50 ML IV SCH (10:04)
[2019-10-02 11:08] VITALS: BP 138/64
[2019-10-02] MEDS: INSULIN LISPRO 300 UNITS/3 ML VIAL. SQ SCH ×2 (12:00→16:35)
--- NOTE | 2019-10-02 12:10 | NUR ---
SW following. Discussed with RN, pt from home - will need saddle stitcher IV abx, pt getting PICC line today or tomorrow. SW awaiting confirmation of abx needed for discharge. SW to meet with pt to discuss home infusion. SW will continue to follow.
--- NOTE | 2019-10-02 14:28 | NUR ---
Wound Care: Wound Type/Assessment: Diabetic foot ulcer s/p open amputation of R 4th toe, pictured and measure (possible DC today or tomorrow). Wound tunnels to opening on plantar surface of foot, 90% yellow slough, 10% red granulation. Redness to lateral ankle extending around the posterior and dorsal aspects of foot. Treatment Recommendations/Plan: Ostomy ring to kisha wound of amp site, pack black foam through tunnel until it reaches plantar opening. Maintain PWT settings at 125mmHg continuously, change MWF Education provided: Discharge follow up instructions to avoid pressure to wound, follow up in wound clinic, s/s of infection, nutrition and wound prevention. Offloading surface/device: Hospital bed Recommended Referrals/Tests: Wound clinic will call to schedule follow up appointment. Discharge Recommendations for dressings: Home health needed for home dressing changes following DC
--- NOTE | 2019-10-02 14:40 | RAD ---
Procedure: Upper extremity PICC line placement Clinical Indication: Adult male requiring central venous access Sedation: Local anesthesia only was provided Antibiotics: None Fluoro Time: 0.3 minutes, images: 1 Contrast: None Sterility: All elements of maximal sterile barrier technique including the use of a cap, mask, sterile gown, sterile gloves, large sterile sheet, appropriate hand hygiene, and 2% chlorhexidine for cutaneous antisepsis (or acceptable alternative antiseptic per current guidelines) were followed for this procedure. Consent: The procedure was explained in its entirety to the patient or the patients designated abrasives sales representative by a member of the treatment team, including a discussion of the risks, benefits and commonly accepted alternatives to the procedure, as well as the expected consequences of no therapy whatsoever. Discussion of the risks included, but was not limited to, those that are most frequent and those that are rare but possibly severe or life-threatening, as well as the possibility of unforeseen complications. Technique and Findings: Following informed consent, the patient was prepped and draped in the usual sterile fashion. Ultrasound interrogation of the right arm revealed patency and compressibility of the right basilic vein. A hard copy ultrasound image was recorded. 1% Lidocaine was used to achieve local anesthesia and a 21-gauge micropuncture needle was used to gain access to the targeted vein. The needle was exchanged over wire for a 5 Hungarian peel-away sheath which was used to deploy a PICC line under fluoroscopic guidance such that the distal tip resided at the cavoatrial junction. The catheter flushed and aspirated with ease and was sutured to the skin. Complications: No immediate Impression: 1. Ultrasound guided PICC line placement as described.
[2019-10-02 15:28] VITALS: BP 122/73
--- NOTE | 2019-10-02 15:47 | PDOC ---
Progress Note-Wound Care SUBJECTIVE Pt seen for f/u, s/p right fourth toe ray amputation on 09/29. Patient states that he is feeling well today. Patient states that he is feeling much better following his fevers residing. Patient denies nausea, vomiting or diarrhea. Patient denies cough or shortness of breath. Patient continues to deny pain of his right foot, secondary to his neuropathy. OBJECTIVE Vital Signs Vital Signs Date Time Temp Pulse Resp B/P (MAP) Pulse Ox O2 Delivery O2 Flow Rate FiO2 10/01/19 07:00 97.8 77 20 140/74 (96) 95 Room Air 97.8 10/02/19 08:00 8.0 Vital Signs Date Time Temp Pulse Resp B/P (MAP) Pulse Ox O2 Delivery O2 Flow Rate FiO2 10/02/19 15:28 98.0 75 18 122/73 (89) 95 Room Air 98.0 10/02/19 08:00 8.0 Physical Exam: Patient awake and alert, pleasant in conversation. Vital signs are stable and patient is now afebrile. Respirations are even and unlabored. Patient is on room air not requiring supplemental oxygen. Abdomen soft, nondistended and nontender to palpation. Patient is status post right fourth toe ray amputation. Wound measures 9.7 x 1.4 cm there is undermining from 11-12 30 with a max depth of 2.6. Wound is through and through from the plantar aspect to dorsal. Wound bed is 90% slough, 10% granulation.There is bone palpable, but not visible. Moderate serosanguineous drainage is present in the wound VAC canister. There is no odor following cleansing. The erythema previously noted on the dorsal aspect of the foot is much improved. There is no warmth with palpation. 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 The anterior tibial and posterior tibial velocities are mildly elevated but no focal critical stenosis is identified") - Continue NPWT at -125mmHg with vac changes on M, W, F. Wound nurse has applied for home vac - Territory Account Representative consult for offloading shoe. Pt should be nonweightbearing to the forefoot. - Upon dc, pt will need HH for vac changes two times weekly. Pt will also need f/u visits at the wound care center (vac will be changed at this appt). SHARI CORTES APRN Oct 02, 2019 15:47
[2019-10-02] MEDS: ENOXAPARIN 40 MG/0.4 ML SYRINGE. SQ SCH (16:26)
[2019-10-02 19:00] VITALS: BP 149/81
[2019-10-02] MEDS: ZOLPIDEM 5 MG TABLET. PO PRN (21:05)
[2019-10-02] MEDS: ATORVASTATIN CALCIUM 10 MG TABLET. PO SCH (21:05)
[2019-10-02 23:00] VITALS: BP 164/89
[2019-10-03] MEDS: LORazepam 0.5 MG TABLET PO PRN ×4 (00:52→19:31)
[2019-10-03] MEDS: oxyCODONE/APAP 5/325 1 TAB TABLET PO PRN ×4 (00:53→21:04)
[2019-10-03 03:00] VITALS: BP 130/71
[2019-10-03] MEDS: PIPERACILLIN/TAZOBACTAM 3.375 GM in IV NORMAL SALINE 50ML 50 ML IV SCH ×4 (06:06→23:50)
[2019-10-03 07:00] VITALS: BP 150/83
[2019-10-03] MEDS: METOPROLOL SUCC 24HR ER 25 MG TAB.ER.24H. PO SCH (08:07)
[2019-10-03] MEDS: LACTOBACILLUS RHAMNOSUS GG 1 CAPSULE. PO SCH ×2 (08:07→21:00)
[2019-10-03] MEDS: ISOSORBIDE MONONITRATE ER 30 MG TAB.ER.24H PO SCH (08:07)
[2019-10-03] MEDS: ASPIRIN ENTERIC COATED 81 MG TABLET.DR. PO SCH (08:08)
[2019-10-03] MEDS: LISINOPRIL 20 MG TABLET PO SCH (08:08)
[2019-10-03] MEDS: INSULIN GLARGINE SYRINGE. SQ SCH ×2 (08:16→21:02)
[2019-10-03] MEDS: INSULIN LISPRO 300 UNITS/3 ML VIAL. SQ SCH ×3 (08:16→16:47)
[2019-10-03] MEDS: DAPTOmycin (GENERIC) IVPB 590 MG in IV NORMAL SALINE 50ML 50 ML IV SCH (08:45)
--- NOTE | 2019-10-03 09:33 | NUR ---
SW following. Discussed with RN, TERESITA needing information on which IV abx is needed at discharge to have benefits and pricing checked. Pt will need home health at discharge for wound care/vac needs. TERESITA will continue to follow. Addendum: 10/03/19 at 1352 by TR LO TERESITA met with pt (no isolation precautions at the time) to discuss IV abx, pt stated he does not have transportation to get to [facility] everyday so would prefer to do IV abx at home. Pt gave permission for SW to fax demographics to [facility] to check benefits. Pt does not have a preference of provider for infusion or home health. TERESITA notified Elmira Villa RN of pt needing home health. Awaiting cultures to determine which abx is needed.
--- NOTE | 2019-10-03 09:39 | PDOC ---
Infectious Disease Note Subjective Subjective pt is feeling good ROS ROS no n/v/d/sob Vital Sign Vital Signs Vital Signs Date Time Temp Pulse Resp B/P (MAP) Pulse Ox O2 Delivery O2 Flow Rate FiO2 10/03/19 09:01 95 Room Air 10/03/19 08:08 71 150/83 10/03/19 07:00 98.6 18 98.6 10/02/19 08:00 8.0 Physical Exam PHYSICAL EXAM CONSTITUTIONAL: He is lying in bed. He is cooperative. He is in no acute distress. He looks better HEENT: Pupils equal and reactive with normal conjunctivae. Oral cavity, pharynx is clear. NECK: Supple. Good range of motion. LUNGS: Clear to auscultation bilaterally. HEART: S1, S2. ABDOMEN: Obese, soft, nontender. No guarding, no rebound. EXTREMITIES: Without clubbing or cyanosis. Left great toe got a clean amputation, well-healed site. Right lower extremity has less erythema and swelling Vac in place. SKIN: Otherwise, warm to touch. NEUROLOGIC: He is nonfocal, answers questions, moves all extremities. PSYCHIATRIC: Affect is somewhat flat but better. Labs Lab Laboratory Tests Test 10/02/19 11:25 10/02/19 16:11 10/02/19 20:40 10/03/19 07:36 Glucose (Fingerstick) 251 mg/dL (70-99) 352 mg/dL (70-99) 188 mg/dL (70-99) 213 mg/dL (70-99) Micro GRAM STAIN Final Final NO ORGANISMS SEEN. SQUAMOUS EPI CELL:NONE SEEN PMN (WBCs):RARE Unless otherwise specified, Testing Performed by: [address] [address] For Inquires, the Physician may contact the Microbiology department at [phone] ANAEROBIC-AEROBIC CULTURE Preliminary Preliminary FEW GRAM NEGATIVE RODS on 10/02/19 at 1147 Unless otherwise specified, Testing Performed by: [address] [address] For Inquires, the Physician may contact the Microbiology department at [phone] Objective Assessment S/p open Right fourth toe ray amputation 09/29 Right foot infection Fever - persists but curve now improving Leukocytosis - better DM skin yeast infection Plan Plan of Care Labs in am Cont Zosyn/Dapto/Micafungin now F/u cults picc ss to arrange for home antibiotics D/w nursing RACHELE ARECHIGA MD Oct 03, 2019 09:39
[2019-10-03] MEDS: MICAFUNGIN 100 MG in IV DEXTROSE 5% 100ML 100 ML IV SCH (09:45)
[2019-10-03 11:04] VITALS: BP 137/77
--- NOTE | 2019-10-03 11:16 | PDOC ---
PROGRESS NOTES Date of Service: DATE: 10/03/19 TIME: 11:16 Chief Complaint Chief Complaint IMPRESSION Sepsis due to diabetic foot ulcer secondary to puncture wound status post fourth digit disarticulation 09/30/2019 Diabetes type 2uncontrolled Hypertension Peripheral neuropathy CAD PLAN Increase Lantus to 32 twice daily Continue Accu-Cheks and sliding scale Wound care nurse consultcontinue current management and follow-up wound cultures Appreciate infectious disease following Follow-up wound and blood cultures Will continue to monitor extremity for worsening erythema Accu-Cheks and regular insulin sliding scale In hospital glucose level goals of between 140-1 80 Tetanus vaccine is up-to-date Lovenox for DVT prophylaxis ADA diet Full code Discussed with RN Dispo pending wound care and follow-up wound cultures Cont Zosyn/Dapto/Micafungin IV History of Present Illness History of Present Illness 54-year-old male with past medical history of diabetes type 2, hypertension, diabetic neuropathy. Comes to the ED with increasing right foot pain. He states that he had stepped on attack about 2 weeks ago but did not realize it until today that he had stepped on attack that was about 1 cm long. Patient denies any pain or bleeding. Patient denies any falls or trauma. Patient states that he is compliant with his diabetes management. 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 But he had no's insurance at that time and he never followed up with that. 10/01/2019 No acute events overnight. Patient seen and examined bedside. There is decreasing erythema surrounding the wound VAC. Patient's chart, labs, images were reviewed and discussed with RN 09/30/2019 No acute events overnight. Pain is controlled. Patient continues have fevers. We will continue broad-spectrum antibiotics per ID stewardship. Patient's chart, labs, images were reviewed and discussed with RN 09/29/2019 Patient seen and examined bedside today. Patient is resting comfortably. No acute events overnight. Patient had a fever 101.6. No suicidal ideation at this time. Patient's chart, labs, images were reviewed and discussed with RN 09/28/2019 Patient seen and examined today. No acute events overnight. Patient continues to have fevers. Antibiotics have been broadened by infectious disease. Patient continues to have flat affect. No suicidal ideation or homicidal ideation at this time. Patient's chart, labs, images were reviewed and discussed with RN 09/27/19 Patient seen and examined today. Fever 101.7 overnight chart reviewed Vitals Vitals Vital Signs Date Time Temp Pulse Resp B/P (MAP) Pulse Ox O2 Delivery O2 Flow Rate FiO2 10/03/19 11:04 98.3 68 18 137/77 (97) 95 Room Air 98.3 10/02/19 08:00 8.0 Physical Exam Physical Exam CONSTITUTIONAL: He is lying in bed. He is cooperative. He is in no acute distress. He looks better HEENT: Pupils equal and reactive with normal conjunctivae. Oral cavity, pharynx is clear. NECK: Supple. Good range of motion. LUNGS: Clear to auscultation bilaterally. HEART: S1, S2. ABDOMEN: Obese, soft, nontender. No guarding, no rebound. EXTREMITIES: Without clubbing or cyanosis. Left great toe got a clean amputation, well-healed site. Right lower extremity has less erythema and swelling Vac in place. SKIN: Otherwise, warm to touch. NEUROLOGIC: He is nonfocal, answers questions, moves all extremities. PSYCHIATRIC: Affect is somewhat flat but better. General: Alert, Oriented X3, Cooperative, No acute distress Heart: Regular rate Lungs: Clear Abdomen: Normal bowel sounds, Soft, No tenderness Extremities: Other (Dorsalis pedis 1+ bilaterally) Skin: Other (Cellulitis to dorsum of foot spreading to distal tibial region) Labs LABS Laboratory Tests Test 10/02/19 11:25 10/02/19 16:11 10/02/19 20:40 10/03/19 07:36 Glucose (Fingerstick) 251 mg/dL (70-99) 352 mg/dL (70-99) 188 mg/dL (70-99) 213 mg/dL (70-99) Comment Review of Relevant I have reviewed the following items domitila (where applicable) has been applied. Labs Laboratory Tests Test 10/01/19 11:25 10/01/19 16:24 10/01/19 20:24 10/02/19 03:55 Glucose (Fingerstick) 307 mg/dL (70-99) 186 mg/dL (70-99) 221 mg/dL (70-99) White Blood Count 5.2 x10^3/uL (4.0-11.0) Red Blood Count 3.67 x10^6/uL (4.30-5.70) Hemoglobin 11.4 g/dL (13.0-17.5) Hematocrit 33.5 % (39.0-53.0) Mean Corpuscular Volume 91 fL (79-100) Mean Corpuscular Hemoglobin 31 pg (25-35) Mean Corpuscular Hemoglobin Concent 34 g/dL (31-37) Red Cell Distribution Width 12.3 % (11.5-14.5) Platelet Count 219 x10^3/uL (140-400) Neutrophils (%) (Auto) 72 % (31-73) Lymphocytes (%) (Auto) 14 % (24-48) Monocytes (%) (Auto) 10 % (0-9) Eosinophils (%) (Auto) 3 % (0-3) Basophils (%) (Auto) 0 % (0-3) Neutrophils # (Auto) 3.8 x10^3/uL (1.8-7.7) Lymphocytes # (Auto) 0.8 x10^3/uL (1.0-4.8) Monocytes # (Auto) 0.5 x10^3/uL (0.0-1.1) Eosinophils # (Auto) 0.2 x10^3/uL (0.0-0.7) Basophils # (Auto) 0.0 x10^3/uL (0.0-0.2) Sodium Level 134 mmol/L (136-145) Potassium Level 4.1 mmol/L (3.5-5.1) Chloride Level 98 mmol/L (98-107) Carbon Dioxide Level 32 mmol/L (21-32) Anion Gap 4 (6-14) Blood Urea Nitrogen 14 mg/dL (8-26) Creatinine 1.1 mg/dL (0.7-1.3) Estimated GFR (Cockcroft-Gault) 69.2 Glucose Level 223 mg/dL (70-99) Calcium Level 8.6 mg/dL (8.5-10.1) Test 8/3/20 07:36 10/02/19 11:25 10/02/19 16:11 10/02/19 20:40 Glucose (Fingerstick) 222 mg/dL (70-99) 251 mg/dL (70-99) 352 mg/dL (70-99) 188 mg/dL (70-99) Test 10/03/19 07:36 Glucose (Fingerstick) 213 mg/dL (70-99) Laboratory Tests Test 10/02/19 11:25 10/02/19 16:11 10/02/19 20:40 10/03/19 07:36 Glucose (Fingerstick) 251 mg/dL (70-99) 352 mg/dL (70-99) 188 mg/dL (70-99) 213 mg/dL (70-99) Microbiology 09/30/19 Gram Stain - Final, Resulted 09/30/19 Aerobic and Anaerobic Culture - Preliminary, Resulted 09/27/19 Blood Culture - Final, Complete NO GROWTH AFTER 5 DAYS Medications Current Medications Ondansetron HCl (Zofran) 4 mg 1X ONCE IVP Last administered on 09/26/19at 16:54; Start 09/26/19 at 16:45; Stop 09/26/19 at 16:46; Status DC Morphine Sulfate (Morphine Sulfate) 4 mg 1X ONCE IV Last administered on 09/26/19at 16:55; Start 09/26/19 at 16:45; Stop 09/26/19 at 16:46; Status DC Vancomycin HCl 250 ml @ 250 mls/hr 1X ONCE IV ; Start 09/26/19 at 16:45; Stop 09/26/19 at 16:44; Status DC Vancomycin HCl 2 gm/Sodium Chloride 500 ml @ 250 mls/hr ONCE ONCE IV Last administered on 09/26/19at 16:55; Start 09/26/19 at 17:00; Stop 09/26/19 at 18:59; Status DC Sodium Chloride 1,000 ml @ 1,000 mls/hr 1X ONCE IV Last administered on 09/26/19at 16:54; Start 09/26/19 at 17:00; Stop 09/26/19 at 17:59; Status DC Morphine Sulfate (Morphine Sulfate) 4 mg 1X ONCE IV Last administered on 09/26/19at 18:42; Start 09/26/19 at 18:15; Stop 09/26/19 at 18:16; Status DC Clindamycin Phosphate 50 ml @ 100 mls/hr Q8HRS IV Last administered on 09/30/19at 04:45; Start 09/26/19 at 20:30; Stop 09/30/19 at 08:27; Status DC Aspirin (Ecotrin) 81 mg DAILYWBKFT PO Last administered on 10/03/19at 08:08; Start 09/27/19 at 08:00 Isosorbide Mononitrate (Imdur) 30 mg DAILY PO Last administered on 10/03/19at 08:07; Start 09/27/19 at 09:00 Lisinopril (Prinivil) 20 mg DAILY PO Last administered on 10/03/19 08:08; Start 09/27/19 at 09:00 Metoprolol Succinate (Toprol Xl) 25 mg DAILY PO Last administered on 10/03/19at 08:07; Start 09/27/19 at 09:00 Atorvastatin Calcium (Lipitor) 5 mg HS PO Last administered on 10/02/19at 21:05; Start 09/26/19 at 22:00 Insulin Human Lispro (HumaLOG) 0-7 UNITS TIDWMEALS SQ ; Start 09/27/19 at 08:00; Stop 09/26/19 at 22:59; Status DC Dextrose (Dextrose 50%-Water Syringe) 12.5 gm PRN Q15MIN PRN IV SEE COMMENTS; Start 09/26/19 at 21:45; Stop 09/30/19 at 08:26; Status DC Gabapentin (Neurontin) 300 mg PRN TID PRN PO NEUROPATHIC PAIN Last administered on 09/30/19at 20:26; Start 09/26/19 at 23:00 Lorazepam (Ativan) 0.5 mg PRN Q4HRS PRN PO ANXIETY / AGITATION Last administered on 10/03/19at 08:12; Start 09/26/19 at 23:00 Oxycodone/ Acetaminophen (Percocet 5/325) 1 tab PRN Q6HRS PRN PO PAIN Last administered on 10/03/19at 08:08; Start 09/26/19 at 23:00 Hydromorphone HCl (Dilaudid) 0.2 mg PRN Q2HR PRN IVP PAIN; Start 09/26/19 at 23:00 Insulin Human Lispro (HumaLOG) 0-7 UNITS TIDWMEALS SQ Last administered on 09/28/19at 08:24; Start 09/26/19 at 23:00; Stop 09/28/19 at 11:39; Status DC Acetaminophen (Tylenol) 650 mg PRN Q6HRS PRN PO FEVER > 100.5'F Last administered on 09/30/19at 11:29; Start 09/27/19 at 03:30 Insulin Glargine (Lantus Syringe) 10 unit BID SQ Last administered on 09/28/19at 09:10; Start 09/27/19 at 21:00; Stop 09/28/19 at 11:39; Status DC Piperacillin Sod/ Tazobactam Sod (Zosyn Per Pharmacy) 1 each PRN DAILY PRN MC SEE COMMENTS; Start 09/28/19 at 08:15 Daptomycin 590 mg/ Sodium Chloride 50 ml @ 100 mls/hr Q24H IV Last administered on 10/03/19at 08:45; Start 09/28/19 at 08:30 Micafungin Sodium 100 mg/Dextrose 100 ml @ 100 mls/hr Q24H IV Last administered on 10/03/19at 09:45; Start 09/28/19 at 10:00 Piperacillin Sod/ Tazobactam Sod 3.375 gm/Sodium Chloride 50 ml @ 100 mls/hr Q6HRS IV Last administered on 10/03/19at 06:06; Start 09/28/19 at 09:00 Polyethylene Glycol (miraLAX PACKET) 17 gm PRN DAILY PRN PO CONSTIPATION Last administered on 10/01/19at 15:21; Start 09/28/19 at 09:30 Polyethylene Glycol (miraLAX PACKET) 17 gm 1X ONCE PO Last administered on 09/28/19at 11:19; Start 09/28/19 at 09:30; Stop 09/28/19 at 09:34; Status DC Insulin Glargine (Lantus Syringe) 20 unit DAILY SQ Last administered on 09/30/19at 09:45; Start 09/29/19 at 09:00; Stop 09/30/19 at 10:21; Status DC Insulin Human Lispro (HumaLOG) 0-9 UNITS TIDWMEALS SQ Last administered on 10/03/19at 08:16; Start 09/28/19 at 12:00 Dextrose (Dextrose 50%-Water Syringe) 12.5 gm PRN Q15MIN PRN IV SEE COMMENTS; Start 09/28/19 at 11:45 Lactobacillus Rhamnosus (Culturelle) 1 cap BID PO Last administered on 10/03/19at 08:07; Start 09/28/19 at 21:00 Gadoterate Meglumine (Dotarem) 22.8 ml 1X ONCE IVP Last administered on 09/28/19at 15:36; Start 09/28/19 at 15:30; Stop 09/28/19 at 15:31; Status DC Enoxaparin Sodium (Lovenox 40mg Syringe) 40 mg Q24H SQ Last administered on 10/02/19at 16:26; Start 09/29/19 at 18:00 Zolpidem Tartrate (Ambien) 5 mg PRN QHS PRN PO INSOMNIA, MAY REPEAT IN 1HR Last administered on 10/02/19at 21:05; Start 09/29/19 at 21:45 Diphenhydramine HCl (Benadryl) 25 mg PRN QHS PRN PO INSOMNIA 1ST CHOICE; Start 09/29/19 at 21:45 Propofol (Diprivan) 200 mg STK-MED ONCE IV ; Start 09/30/19 at 07:02; Stop 09/30/19 at 07:03; Status DC Lidocaine HCl (Lidocaine Pf 2% Vial) 5 ml STK-MED ONCE .ROUTE ; Start 09/30/19 at 07:02; Stop 09/30/19 at 07:03; Status DC Fentanyl Citrate (Fentanyl 2ml Vial) 100 mcg STK-MED ONCE .ROUTE ; Start 09/30/19 at 07:03; Stop 09/30/19 at 07:03; Status DC Lidocaine HCl (Lidocaine 1% 20ml Vial) 20 ml STK-MED ONCE .ROUTE ; Start 09/30/19 at 07:04; Stop 09/30/19 at 07:04; Status DC Bupivacaine HCl (Sensorcaine Mpf 0.5%) 30 ml STK-MED ONCE .ROUTE ; Start 09/30/19 at 07:04; Stop 09/30/19 at 07:05; Status DC Morphine Sulfate (Morphine Sulfate) 2 mg STK-MED ONCE .ROUTE ; Start 09/30/19 at 07:40; Stop 09/30/19 at 07:40; Status DC Ondansetron HCl (Zofran) 4 mg STK-MED ONCE .ROUTE ; Start 09/30/19 at 08:06; Stop 09/30/19 at 08:06; Status DC Sevoflurane (Ultane) 30 ml STK-MED ONCE IH ; Start 09/30/19 at 08:06; Stop 09/30/19 at 08:06; Status DC Ondansetron HCl (Zofran) 4 mg PRN Q6HRS PRN IV NAUSEA/VOMITING; Start 09/30/19 at 08:15; Stop 10/01/19 at 08:14; Status DC Ringer's Solution 1,000 ml @ 30 mls/hr Q24H IV ; Start 09/30/19 at 08:08; Stop 09/30/19 at 10:22; Status DC Lidocaine HCl (Xylocaine-Mpf 1% 2ml Vial) 2 ml PRN 1X PRN ID PRIOR TO IV START; Start 09/30/19 at 08:15; Stop 10/01/19 at 08:14; Status DC Prochlorperazine Edisylate (Compazine) 5 mg PACU PRN PRN IV NAUSEA, MRX1; Start 09/30/19 at 08:15; Stop 10/01/19 at 08:14; Status DC Cefazolin Sodium (Ancef) 1 gm STK-MED ONCE IVP ; Start 09/30/19 at 08:22; Stop 09/30/19 at 08:22; Status DC Insulin Glargine (Lantus Syringe) 20 unit BID SQ Last administered on 09/30/19at 20:30; Start 09/30/19 at 21:00; Stop 10/01/19 at 08:29; Status DC Insulin Glargine (Lantus Syringe) 30 unit BID SQ Last administered on 10/02/19at 08:21; Start 10/01/19 at 09:00; Stop 10/02/19 at 11:54; Status DC Insulin Glargine (Lantus Syringe) 32 unit BID SQ Last administered on 10/03/19at 08:16; Start 10/02/19 at 21:00 Active Scripts Active Reported Novolin R (Insulin Regular, Human) 100 Unit/1 Ml Vial 21 Units SQ BIDACHS Lovastatin 40 Mg Tablet 40 Mg PO HS Aspirin Ec (Aspirin) 81 Mg Tablet.dr 1 Tab PO DAILY Isosorbide Mononitrate Er (Isosorbide Mononitrate) 30 Mg Tab.er.24h 1 Tab PO DAILY Metoprolol Succinate ( Xl ) (Metoprolol Succinate) 25 Mg Tab.er.24h 25 Mg PO DAILY Lisinopril 20 Mg Tablet 1 Tab PO DAILY Hydrochlorothiazide Tablet (Hydrochlorothiazide) 25 Mg Tablet 25 Mg PO DAILY Tresiba Flextouch U-100 (Insulin Degludec) 100 Unit/1 Ml Insuln.pen 20 Unit SQ HS Fenofibrate 150 Mg Capsule 160 Mg PO DAILY Novolin N (Nph, Human Insulin Isophane) 100 Unit/1 Ml Vial 16 Unit SQ BIDBFRMEAL Vitals/I & O Vital Sign - Last 24 Hours 10/02/19 10/02/19 10/02/19 10/02/19 11:52 12:50 15:28 18:00 Temp 98.0 98.0 Pulse 75 Resp 20 20 18 20 B/P (MAP) 122/73 (89) Pulse Ox 98 98 95 95 O2 Delivery Room Air Room Air Room Air Room Air 10/02/19 10/02/19 10/02/19 10/02/19 19:00 19:00 19:30 23:00 Temp 97.3 98.5 97.3 98.5 Pulse 76 74 Resp 20 20 B/P (MAP) 149/81 (103) 164/89 (114) Pulse Ox 96 99 O2 Delivery Room Air Room Air Room Air Room Air 10/03/19 10/03/19 10/03/19 10/03/19 00:53 03:00 07:00 07:35 Temp 98.1 98.6 98.1 98.6 Pulse 65 71 Resp 19 18 B/P (MAP) 130/71 (90) 150/83 (105) Pulse Ox 96 95 O2 Delivery Room Air Room Air Room Air Room Air 10/03/19 10/03/19 10/03/19 10/03/19 08:07 08:07 08:08 08:08 Pulse 71 71 71 B/P (MAP) 150/83 150/83 150/83 Pulse Ox 95 O2 Delivery Room Air 10/03/19 10/03/19 09:01 11:04 Temp 98.3 98.3 Pulse 68 Resp 18 B/P (MAP) 137/77 (97) Pulse Ox 95 95 O2 Delivery Room Air Room Air Intake and Output 10/02/19 10/02/19 10/03/19 15:00 23:00 07:00 Intake Total 780 ml 1580 ml 360 ml Balance 780 ml 1580 ml 360 ml Justicifation of Admission Dx: Justifications for Admission: Justification of Admission Dx: Yes Sepsis: Infection Cellulitis: Cellulitis MARGRET TRINH MD Oct 03, 2019 11:16
[2019-10-03] MEDS: MULTIVITAMIN with MINERAL TABLET. PO SCH (13:29)
--- NOTE | 2019-10-03 14:30 | NUR ---
Wound Care Received call from SOL Schneider stating pt's wound vac wasn't working. Upon entering room, pt was walking toward the restroom and his wound vac tubing was wrapped around his foot, but was disconnected from the actual machine. After pt returned from the restroom, pt was educated on wearing the Darco half shoe that was ordered to better off-load the plantar wound than his house slippers would, pt v/u. While troubleshooting vac, pt asked why the [employer] music sound light technician didn't come instead of this RN. Informed pt that the WCRNs know how to troubleshoot the wound vacs. This RN explained to pt that after reviewing the history of the machine, there were no alarms noted, then asked pt what exactly he thought was wrong with it. Pt stated he did not see any drainage "circulating in the tubing, and when I disconnected the tubing, it didn't make any suction sound". Pt was then instructed not to disconnect the tubing for any reason, drainage will not continuously pull from the wound, and it was also found that the canister was not engaged into the vac. Reiterated to pt that he should not be disconnecting tubing or changing anything in regards to the wound vac. Pt's affect was very flat with somewhat inappropriate and odd responses. Findings discussed with SOL Schneider.
[2019-10-03 15:03] VITALS: BP 133/65
[2019-10-03] MEDS: ENOXAPARIN 40 MG/0.4 ML SYRINGE. SQ SCH (16:42)
[2019-10-03 19:00] VITALS: BP 141/65
[2019-10-03] MEDS: ATORVASTATIN CALCIUM 10 MG TABLET. PO SCH (21:01)
[2019-10-03] MEDS: ZOLPIDEM 5 MG TABLET. PO PRN (21:01)
[2019-10-03 23:00] VITALS: BP 134/60
[2019-10-04 03:00] VITALS: BP 130/58
[2019-10-04] MEDS: LORazepam 0.5 MG TABLET PO PRN ×2 (05:56)
[2019-10-04] MEDS: oxyCODONE/APAP 5/325 1 TAB TABLET PO PRN (05:56)
[2019-10-04] MEDS: PIPERACILLIN/TAZOBACTAM 3.375 GM in IV NORMAL SALINE 50ML 50 ML IV SCH (05:57)
[2019-10-04 07:00] VITALS: BP 137/47
[2019-10-04] MEDS: INSULIN GLARGINE SYRINGE. SQ SCH (08:45)
[2019-10-04] MEDS: INSULIN LISPRO 300 UNITS/3 ML VIAL. SQ SCH ×2 (08:46→13:02)
[2019-10-04] MEDS: LACTOBACILLUS RHAMNOSUS GG 1 CAPSULE. PO SCH (08:47)
[2019-10-04] MEDS: ISOSORBIDE MONONITRATE ER 30 MG TAB.ER.24H PO SCH (08:47)
[2019-10-04] MEDS: MULTIVITAMIN with MINERAL TABLET. PO SCH (08:47)
[2019-10-04] MEDS: ASPIRIN ENTERIC COATED 81 MG TABLET.DR. PO SCH (08:47)
[2019-10-04] MEDS: LISINOPRIL 20 MG TABLET PO SCH (08:47)
[2019-10-04] MEDS: METOPROLOL SUCC 24HR ER 25 MG TAB.ER.24H. PO SCH (08:47)
[2019-10-04] MEDS: MICAFUNGIN 100 MG in IV DEXTROSE 5% 100ML 100 ML IV SCH (08:48)
[2019-10-04] MEDS ORDERED: ERTAPENEM 1GM IVPB (GENERIC) 50 ML IV ONE (09:00)
--- NOTE | 2019-10-04 09:00 | PDOC ---
Infectious Disease Note Subjective Subjective pt is feeling good ROS ROS no n/v/d/sob Vital Sign Vital Signs Vital Signs Date Time Temp Pulse Resp B/P (MAP) Pulse Ox O2 Delivery O2 Flow Rate FiO2 10/04/19 08:47 79 137/47 10/04/19 07:00 97.9 18 94 Room Air 97.9 Physical Exam PHYSICAL EXAM CONSTITUTIONAL: He is lying in bed. He is cooperative. He is in no acute distress. He looks better HEENT: Pupils equal and reactive with normal conjunctivae. Oral cavity, pharynx is clear. NECK: Supple. Good range of motion. LUNGS: Clear to auscultation bilaterally. HEART: S1, S2. ABDOMEN: Obese, soft, nontender. No guarding, no rebound. EXTREMITIES: Without clubbing or cyanosis. Left great toe got a clean amputation, well-healed site. Right lower extremity has less erythema and swelling Vac in place. SKIN: Otherwise, warm to touch. NEUROLOGIC: He is nonfocal, answers questions, moves all extremities. PSYCHIATRIC: Affect is somewhat flat but better. Labs Lab Laboratory Tests Test 10/03/19 11:19 10/03/19 16:37 10/03/19 19:53 10/04/19 07:44 Glucose (Fingerstick) 243 mg/dL (70-99) 219 mg/dL (70-99) 174 mg/dL (70-99) 170 mg/dL (70-99) Micro GRAM STAIN Final Final NO ORGANISMS SEEN. SQUAMOUS EPI CELL:NONE SEEN PMN (WBCs):RARE Unless otherwise specified, Testing Performed by: [place] [address] For Inquires, the Physician may contact the Microbiology department at [phone] ANAEROBIC-AEROBIC CULTURE Preliminary Preliminary MIXED AEROBIC THERESE on 10/03/19 at 1257 INCLUDING: FEW [ESCHERICHIA COLI] FEW [STREPTOCOCCUS MITIS/ORALIS] RARE [GRANULICATELLA ADIACENS] FEW ANAEROBIC GRAM NEGATIVE RODS on 10/03/19 at 5042 FINAL ID= [BACTEROIDES FRAGILIS] ESCHERICHIA COLI UNIDENTIFIED ORGANISM BACTEROIDES FRAGILIS GRANULICATELLA ADIACENS STREPTOCOCCUS MITIS/ORALIS ANTIMICROBIAL SUSCEPTIBILITY Preliminary Comment NEG MAGGI 56 ESCHERICHIA COLI ANTIBIOTIC RESULT INTERPRETATION AMPICILLIN/SULBACTAM <=4/2 S AMIKACIN <=16 S AMPICILLIN <=8 S CONTINUED ON NEXT PAGE RUN DATE: 10/03/19 [facility] *LIVE* PAGE 2 RUN TIME: 1302 Specimen Inquiry SPEC: [id number] PATIENT: ANT CRUZ [id number] (Continued) Procedure Result -------- ---- ANTIMICROBIAL SUSCEPTIBILITY Preliminary (continued) AMOXICILLIN/K CLAVULANATE <=8/4 S AZTREONAM <=4 S CEFTRIAXONE <=1 S CEFTAZIDIME <=1 S CEFOTAXIME <=2 S CEFOXITIN <=8 S CIPROFLOXACIN <=0.25 S CEFEPIME <=2 S CEFUROXIME 8 S CEFTAZIDIME/AVIBACTAM <=4 S ERTAPENEM <=0.5 S GENTAMICIN <=2 S LEVOFLOXACIN <=0.5 S MEROPENEM <=1 S PIPERACILLIN/TAZOBACTAM <=8 S TRIMETHOPRIM/SULFAMETHOXAZOLE <=0.5/9.5 S TETRACYCLINE <=4 S TOBRAMYCIN <=2 S Unless otherwise specified, Testing Performed by: [address] [address] For Inquires, the Physician may contact the Microbiology department at [phone] END OF REPORT Objective Assessment S/p open Right fourth toe ray amputation 8 Right foot infection Fever - persists but curve now improving Leukocytosis - better DM skin yeast infection Plan Plan of Care Labs in am change antibiotics to iv invanz F/u cults picc ss to arrange for home antibiotics wkly cbc, bun/cr, sed rate fax to [phone] D/w nursing f/u with me in 2 wks RACHELE ARECHIGA MD Oct 04, 2019 09:00
--- NOTE | 2019-10-04 09:09 | NUR ---
Wound Care Pt's home wound vac has been approved through [facility], but pt's OOP expense would be approximately $225/month for vac rental and supplies. Will discuss with pt today, to see if this is feasible, will make other dressing recs if needed.
[2019-10-04 11:00] VITALS: BP 131/71
--- NOTE | 2019-10-04 11:08 | NUR ---
SW following. Discussed with RN and Dr. Isabela Estrella 1gm daily for 4-6 weeks is the recommendation for abx at discharge. SW got benefits from [facility] [facility] - pt will be responsible for $91 supplies per week and $3.60 a week for abx. SW spoke with pt, pt agreeable to doing home infusion. Any from [facility] will come out to teach patient prior to discharge. [facility] will be providing home health services. Discharge planned for today. RN notified.
--- NOTE | 2019-10-04 12:45 | NUR ---
Wound Care: Wound Type/Assessment: Diabetic foot ulcer s/p open amputation of R 4th toe, pictured and measured, pt discharging home today. Wound tunnels to opening on plantar surface of foot, minimal yellow slough, more red granulation present than previous vac change. Redness continues to lateral ankle extending around the posterior and dorsal aspects of foot. Treatment Recommendations/Plan: Ostomy ring to kisha wound of amp site, pack black foam through tunnel until it reaches plantar opening. Maintain NPWT settings at -125 mmHg continuously, change MWF. Education provided: Discharge follow up instructions to avoid pressure to wound, follow up in wound clinic, s/s of infection, nutrition and wound prevention. Offloading surface/device: Darco half shoe with any ambulation Recommended Referrals/Tests: Wound clinic appointment 10/04/2019 at 0800 Discharge Recommendations for dressings: Home health needed for home dressing changes following DC. Settings-see treatment plan above.
[2019-10-04] MEDS ORDERED: INSU100I32 SQ (13:45)
[2019-10-04] MEDS ORDERED: GABA300C18 PO (13:45)
[2019-10-04] MEDS ORDERED: LORA0.5T96 PO (13:45)
[2019-10-04] MEDS ORDERED: ERTA1VIA16 IJ (13:45)
[2019-10-04] MEDS ORDERED: [UNRECOGNIZED DRUG - CODE] MC (14:02)
--- NOTE | 2019-10-04 14:07 | PDOC ---
[employer] PROGRESS NOTE Date of Service DOS: DATE: 10/04/19 TIME: 13:29 Chief Complaint Chief Complaint A/P: Sepsis due to diabetic foot ulcer secondary to puncture wound status post fourth digit disarticulation 09/30/2019 Diabetes type 2uncontrolled Hypertension Peripheral neuropathy CAD S/p open Right fourth toe ray amputation 09/29 Right foot infection Fever - persists but curve now improving Leukocytosis - better DM skin yeast infection PLAN Increased Lantus to 32 twice daily - replace with 35 u BID basaglar Continue Accu-Cheks and sliding scale Wound care nurse consultcontinue current management and follow-up wound cultures Appreciate infectious disease following Follow-up wound and blood cultures Accu-Cheks and regular insulin sliding scale In hospital glucose level goals of between 140-1 80 Tetanus vaccine is up-to-date History of Present Illness History of Present Illness Mr Mcdaniel is a 54 year old male with past medical history of diabetes type 2, hypertension, diabetic neuropathy, CAD who comes to the ED with increasing right foot pain. He states that he had stepped on a tack about 2 weeks prior to hospital stay. Patient denies any pain or bleeding. Patient denies any falls or trauma. Patient states that he is compliant with his diabetes management. 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 But he had no's insurance at that time and he never followed up with that. 09/26: Fever 101.7 overnight 09/27: Still febrile 09/28: Patient had a fever 101.6. 09/29: Pain is controlled. Patient continues have fevers, zosyn, vancomycin and micafungin ordered. ID consulted. to OR: Right fourth toe ray amputation. Irrigation and debridement down to bone. Application of wound VAC to wound less than 25 cm 09/30: There is decreasing erythema surrounding the wound VAC. Patient's chart, labs, images were reviewed and discussed with RN Debrided bedside. Glucose better controlled with lantus BID. Wound VAC placed for home VAC, home IV infusion set up Plan: GRAM STAIN Final Final NO ORGANISMS SEEN. SQUAMOUS EPI CELL:NONE SEEN PMN (WBCs):RARE Unless otherwise specified, Testing Performed by: [address] [address] For Inquires, the Physician may contact the Microbiology department at [phone] ANAEROBIC-AEROBIC CULTURE Preliminary Preliminary MIXED AEROBIC THERESE on 10/03/19 at 1257 INCLUDING: FEW [ESCHERICHIA COLI] FEW [STREPTOCOCCUS MITIS/ORALIS] RARE [GRANULICATELLA ADIACENS] FEW ANAEROBIC GRAM NEGATIVE RODS on 10/03/19 at 1252 FINAL ID= [BACTEROIDES FRAGILIS] ESCHERICHIA COLI UNIDENTIFIED ORGANISM BACTEROIDES FRAGILIS GRANULICATELLA ADIACENS STREPTOCOCCUS MITIS/ORALIS ANTIMICROBIAL SUSCEPTIBILITY Preliminary Comment NEG MAGGI 56 ESCHERICHIA COLI ANTIBIOTIC RESULT INTERPRETATION AMPICILLIN/SULBACTAM <=4/2 S AMIKACIN <=16 S AMPICILLIN <=8 S CONTINUED ON NEXT PAGE RUN DATE: 10/03/19 [facility] LAB *LIVE* PAGE 2 RUN TIME: 1302 Specimen Inquiry -------- ---- SPEC: [id number] PATIENT: ANT MCDANIEL [id number] (Continued) Procedure Result ANTIMICROBIAL SUSCEPTIBILITY Preliminary (continued) AMOXICILLIN/K CLAVULANATE <=8/4 S AZTREONAM <=4 S CEFTRIAXONE <=1 S CEFTAZIDIME <=1 S CEFOTAXIME <=2 S CEFOXITIN <=8 S CIPROFLOXACIN <=0.25 S CEFEPIME <=2 S CEFUROXIME 8 S CEFTAZIDIME/AVIBACTAM <=4 S ERTAPENEM <=0.5 S GENTAMICIN <=2 S LEVOFLOXACIN <=0.5 S MEROPENEM <=1 S PIPERACILLIN/TAZOBACTAM <=8 S TRIMETHOPRIM/SULFAMETHOXAZOLE <=0.5/9.5 S TETRACYCLINE <=4 S TOBRAMYCIN <=2 S Unless otherwise specified, Testing Performed by: [address] [address] For Inquires, the Physician may contact the Microbiology department at [phone] [facility] to arrange for home antibiotics wkly cbc, bun/cr, sed rate fax to [phone] D/w nursing f/u with ID in 2 wks Vitals/I&O Vitals/I&O: Vital Signs Date Time Temp Pulse Resp B/P (MAP) Pulse Ox O2 Delivery O2 Flow Rate FiO2 10/04/19 11:00 97.5 70 18 131/71 (91) 96 Room Air 97.5 I & O 10/03/19 10/03/19 10/04/19 14:59 22:59 06:59 Intake Total 800 ml 120 ml 1240 ml Balance 800 ml 120 ml 1240 ml Physical Exam Physical Exam: CONSTITUTIONAL: He is lying in bed. He is cooperative. He is in no acute distress. He looks better HEENT: Pupils equal and reactive with normal conjunctivae. Oral cavity, pharynx is clear. NECK: Supple. Good range of motion. LUNGS: Clear to auscultation bilaterally. HEART: S1, S2. ABDOMEN: Obese, soft, nontender. No guarding, no rebound. EXTREMITIES: Without clubbing or cyanosis. Left great toe got a clean amputation, well-healed site. Right lower extremity has less erythema and swelling Vac in place. SKIN: Otherwise, warm to touch. NEUROLOGIC: He is nonfocal, answers questions, moves all extremities. PSYCHIATRIC: Affect is somewhat flat but better. General: Alert, Oriented X3, Cooperative, No acute distress Heart: Regular rate Lungs: Clear Abdomen: Normal bowel sounds, Soft, No tenderness Extremities: Other (Dorsalis pedis 1+ bilaterally) Skin: Other (Cellulitis to dorsum of foot spreading to distal tibial region) Labs Labs: Laboratory Tests Test 10/03/19 16:37 10/03/19 19:53 10/04/19 07:44 10/04/19 11:44 Glucose (Fingerstick) 219 mg/dL (70-99) 174 mg/dL (70-99) 170 mg/dL (70-99) 217 mg/dL (70-99) Comment Review of Relevant I have reviewed the following items domitila (where applicable) has been applied. Medications: Current Medications Medications (Trade) Dose Ordered Sig/Matteo Route PRN Reason Start Time Stop Time Status Last Admin Dose Admin Multivitamins (Thera M Plus) 1 tab DAILY PO 10/03/19 14:00 10/04/19 08:47 Ertapenem 50 ml @ 100 mls/hr 1X ONCE IV 10/04/19 09:00 10/04/19 09:29 DC 10/04/19 11:01 Justicifation of Admission Dx: Justifications for Admission: Justification of Admission Dx: Yes Sepsis: Infection Cellulitis: Cellulitis CA ROLDAN MD Oct 04, 2019 14:07
--- NOTE | 2019-10-04 14:10 | PDOC3 ---
Discharge Summary Visit Information Date of Admission: Sep 26, 2019 Date of Discharge: Oct 04, 2019 Admitting Diagnosis: Diabetic toe infection Final Diagnosis Diabetic toe infection Brief Hospital Course Allergies Allergies Coded Allergies Type Severity Reaction Last Updated Verified fentanyl Allergy Severe hives, itching 01/15/17 Yes Vital Signs Vital Signs Date Time Temp Pulse Resp B/P (MAP) Pulse Ox O2 Delivery O2 Flow Rate FiO2 10/04/19 11:00 97.5 70 18 131/71 (91) 96 Room Air 97.5 Lab Results Laboratory Tests Test 10/02/19 16:11 10/02/19 20:40 10/03/19 07:36 10/03/19 11:19 Glucose (Fingerstick) 352 mg/dL (70-99) 188 mg/dL (70-99) 213 mg/dL (70-99) 243 mg/dL (70-99) Test 10/03/19 16:37 10/03/19 19:53 10/04/19 07:44 10/04/19 11:44 Glucose (Fingerstick) 219 mg/dL (70-99) 174 mg/dL (70-99) 170 mg/dL (70-99) 217 mg/dL (70-99) Laboratory Tests Test 10/03/19 16:37 10/03/19 19:53 10/04/19 07:44 10/04/19 11:44 Glucose (Fingerstick) 219 mg/dL (70-99) 174 mg/dL (70-99) 170 mg/dL (70-99) 217 mg/dL (70-99) Brief Hospital Course Problem list: Sepsis due to diabetic foot ulcer secondary to puncture wound status post fourth digit disarticulation 09/30/2019 Diabetes type 2uncontrolled Hypertension Peripheral neuropathy CAD S/p open Right fourth toe ray amputation 09/29 Right foot infection Fever - persists but curve now improving Leukocytosis - better DM skin yeast infection PLAN Increased Lantus to 32 twice daily - replace with 35 u BID basaglar Continue Accu-Cheks and sliding scale Wound care nurse consultcontinue current management and follow-up wound cultures Appreciate infectious disease following Follow-up wound and blood cultures Accu-Cheks and regular insulin sliding scale In hospital glucose level goals of between 140-1 80 Tetanus vaccine is up-to-date Consults: ID, Orthopedic surgery, Wound Care Mr Mcdaniel is a 54 year old male with past medical history of diabetes type 2, hypertension, diabetic neuropathy, CAD who comes to the ED with increasing right foot pain. He states that he had stepped on a tack about 2 weeks prior to hospital stay. Patient denies any pain or bleeding. Patient denies any falls or trauma. Patient states that he is compliant with his diabetes management. 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 But he had no's insurance at that time and he never followed up with that. 09/26: Fever 101.7 overnight 09/27: Still febrile 09/28: Patient had a fever 101.6. 09/29: Pain is controlled. Patient continues have fevers, zosyn, vancomycin and micafungin ordered. ID consulted. to OR: Right fourth toe ray amputation. Irrigation and debridement down to bone. Application of wound VAC to wound less than 25 cm 09/30: There is decreasing erythema surrounding the wound VAC. Patient's chart, labs, images were reviewed and discussed with RN Debrided bedside. Glucose better controlled with lantus BID. Wound VAC placed for home VAC, home IV infusion set up Plan: GRAM STAIN Final Final NO ORGANISMS SEEN. SQUAMOUS EPI CELL:NONE SEEN PMN (WBCs):RARE Unless otherwise specified, Testing Performed by: [address] [address] For Inquires, the Physician may contact the Microbiology department at [phone] ANAEROBIC-AEROBIC CULTURE Preliminary Preliminary MIXED AEROBIC THERESE on 10/03/19 at 1257 INCLUDING: FEW [ESCHERICHIA COLI] FEW [STREPTOCOCCUS MITIS/ORALIS] RARE [GRANULICATELLA ADIACENS] FEW ANAEROBIC GRAM NEGATIVE RODS on 10/03/19 at 1252 FINAL ID= [BACTEROIDES FRAGILIS] ESCHERICHIA COLI UNIDENTIFIED ORGANISM BACTEROIDES FRAGILIS GRANULICATELLA ADIACENS STREPTOCOCCUS MITIS/ORALIS ANTIMICROBIAL SUSCEPTIBILITY Preliminary Comment NEG MAGGI 56 ESCHERICHIA COLI ANTIBIOTIC RESULT INTERPRETATION AMPICILLIN/SULBACTAM <=4/2 S AMIKACIN <=16 S AMPICILLIN <=8 S CONTINUED ON NEXT PAGE RUN DATE: 10/03/19 [facility] LAB *LIVE* PAGE 2 RUN TIME: 1302 Specimen Inquiry SPEC: [id number] PATIENT: ANT MCDANIEL [id number] (Continued) Procedure Result ANTIMICROBIAL SUSCEPTIBILITY Preliminary (continued) AMOXICILLIN/K CLAVULANATE <=8/4 S AZTREONAM <=4 S CEFTRIAXONE <=1 S CEFTAZIDIME <=1 S CEFOTAXIME <=2 S CEFOXITIN <=8 S CIPROFLOXACIN <=0.25 S CEFEPIME <=2 S CEFUROXIME 8 S CEFTAZIDIME/AVIBACTAM <=4 S ERTAPENEM <=0.5 S GENTAMICIN <=2 S LEVOFLOXACIN <=0.5 S MEROPENEM <=1 S PIPERACILLIN/TAZOBACTAM <=8 S TRIMETHOPRIM/SULFAMETHOXAZOLE <=0.5/9.5 S TETRACYCLINE <=4 S TOBRAMYCIN <=2 S Unless otherwise specified, Testing Performed by: [facility] [address] [place] [address] For Inquires, the Physician may contact the Microbiology department at [phone] [facility] to arrange for home antibiotics wkly cbc, bun/cr, sed rate fax to [phone] D/w nursing f/u with ID in 2 wks Greater than 30 minutes spent on d/c Discharge Information Condition at Discharge: Improved Follow Up: Weeks Disposition/Orders: D/C to Home w/ HH Scheduled Aspirin (Aspirin Ec) 81 Mg Tablet.dr, 1 TAB PO DAILY, #30 Ref 3 (Reported) Entered as Reported by: JUDSON PLASENCIA on 01/15/17 1117 Last Action: Continued on 09/26/192144 by ASHUTOSH KNAPP MD Ertapenem Sodium (Invanz) 1 Gm Vial, 1 GM IJ DAILY for Osteomyelitis for 14 Days, #14 Ref 2 Prescribed by: CA ROLDAN MD on 10/04/19 1345 Fenofibrate (Fenofibrate) 150 Mg Capsule, 160 MG PO DAILY, (Reported) Entered as Reported by: JUDSON PLASENCIA on 01/15/17 0818 Insulin Glargine,Hum.rec.anlog (Basaglar Kwikpen U-100) 100 Unit/1 Ml Insuln.pen, 35 UNIT SQ BID for DM2 for 30 Days, #3 Ref 11 Prescribed by: CA ROLDAN MD on 10/04/19 1345 Insulin Regular, Human (Novolin R) 100 Unit/1 Ml Vial, 21 UNITS SQ BIDACHS for , (Reported) Entered as Reported by: MERY BURRELL RN on 09/26/192243 Last Action: New Order on 09/26/192243 by MERY BURRELL RN Isosorbide Mononitrate (Isosorbide Mononitrate Er) 30 Mg Tab.er.24h, 1 TAB PO DAILY, #30 Ref 5 (Reported) Entered as Reported by: JUDSON PLASENCIA on 01/15/171116 Last Action: Continued on 09/26/192144 by ASHUTOSH KNAPP MD Lisinopril (Lisinopril) 20 Mg Tablet, 1 TAB PO DAILY, #30 Ref 5 (Reported) Entered as Reported by: JUDSON PLASENCIA on 01/15/17823 Last Action: Continued on 09/26/192144 by ASHUTOSH KNAPP MD Lovastatin (Lovastatin) 40 Mg Tablet, 40 MG PO HS for , (Reported) Entered as Reported by: MERY BURRELL RN on 09/26/192243 Last Action: New Order on 09/26/192243 by MERY BURRELL RN Metoprolol Succinate (Metoprolol Succinate ( Xl )) 25 Mg Tab.er.24h, 25 MG PO DAILY for FOR HYPERTENSION, #30 Ref 0 (Reported) Entered as Reported by: JUDSON PLASENCIA on 01/15/171116 Last Action: Continued on 09/26/192144 by ASHUTOSH KNAPP MD Nph, Human Insulin Isophane (Novolin N) 100 Unit/1 Ml Vial, 16 UNIT SQ BIDBFRMEAL, (Reported) Entered as Reported by: JUDSON PLASENCIA on 01/15/17812 Scheduled PRN Gabapentin (Gabapentin) 300 Mg Capsule, 300 MG PO PRN TID PRN for NEUROPATHIC PAIN for 30 Days, #90 Prescribed by: CA ROLDAN MD on 10/04/19 1345 Lorazepam (Ativan) 0.5 Mg Tablet, 0.5 MG PO PRN Q4HRS PRN for ANXIETY / AGITATION for 6 Days, #18 Ref 0 Prescribed by: CA ROLDAN MD on 10/04/19 1347 Discontinued Medications Hydrochlorothiazide (Hydrochlorothiazide Tablet ) 25 Mg Tablet, 25 MG PO DAILY for DIURETIC, Ref 0 (Reported) Entered as Reported by: JUDSON PLASENCIA on 01/15/17823 Last Action: HELD on 09/26/192144 by ASHUTOSH KNAPP MD Insulin Degludec (Tresiba Flextouch U-100) 100 Unit/1 Ml Insuln.pen, 20 UNIT SQ HS, (Reported) Entered as Reported by: JUDSON PLASENCIA on 01/15/17 0819 Durable Medical Equipment Pen Needle, Diabetic (Ultra Thin) 1 Each Dis.needle, EACH MC BID for D2, #60 Ref 1, (DME) For BID insulin glargine dosing Prescribed by: CA ROLDAN MD on 10/04/19 1402 Justicifation of Admission Dx: Justifications for Admission: Justification of Admission Dx: Yes Sepsis: Infection Cellulitis: Cellulitis CA ROLDAN MD Oct 04, 2019 14:10
--- NOTE | 2019-10-04 14:12 | SNU/HH DC ---
DISCHARGE WITH HOME HEALTH DISCHARGE INFORMATION: Discharge Date: Oct 04, 2019 Final Diagnosis: Diabetic wound Condition on Discharge: Stable CODE STATUS: Code Status: Full HOME HEALTH: Face to Face: I certify this patient is under my care and that I, or a nurse practitioner or physician's facility assistant working with me, had a face to face encounter that meets the physician face to face encounter requirements with this patient on 10/04/2019. Medical Complications: DM Nursing Home For: Admin/Educate Injections, Assess/Skilled Observatio, Diabetic Care, IV Infusion Therapy, Pain Management, Wound Care, Wound Vac RN For Eval/Treatment: Yes Physical Therapy For: Evalulation/Treatment Occupational Therapy For: Evaluation/Treatment Pt Meets Homebound Status: Unsteady balance w/ amb, POST DISCHARGE ORDERS: Activity Instructions for Disc: Avoid exertion Weight Bearing Status after Di: Full weight bearing Bathing Instructions: Shower-keep dressing dry, No Tub Bath until see DIET AFTER DISCHARGE: ADA Wound/Incision Care: Ice to area for comfort, Keep wound/cast CDI, Do not change dressing CHECKS AFTER DISCHARGE: Checks after discharge: Check blood sugar, ac/hs FOLLOW-UP: Additional Instructions: picc wkly cbc, bun/cr, sed rate fax to [phone] F/u with ID - Dr. Mar or Shauna in 2 wks TREATMENT/EQUIPMENT ORDERS: Adaptive Equipment Issued: None CERTIFICATION STATEMENT: Certification Statement: Certification Statement: Based on the above finding, I certify that this patient is confined to the home and needs intermittent care home care, physical therapy and/or speech therapy, or continues to need occupational therapy.~ This patient is under my care, and I have initiated the establishment of the plan of care.~ This patient will be followed by myself or a community physician who will periodically review the plan of care. Home Meds Active Scripts Pen Needle, Diabetic (Ultra Thin) 1 Each Dis.needle, EACH MC BID for D2, #60 1 Refill For BID insulin glargine dosing Prov:CA ROLDAN MD 10/04/19 Ertapenem Sodium (INVANZ) 1 Gm Vial, 1 GM IJ DAILY for Osteomyelitis for 14 Days, #14 EACH 2 Refills Prov:CA ROLDAN MD 10/04/19 Insulin Glargine,Hum.rec.anlog (Basaglar Kwikpen U-100) 100 Unit/1 Ml Insuln.pen, 35 UNIT SQ BID for DM2 for 30 Days, #3 EACH 11 Refills Prov:CA ROLDAN MD 10/04/19 Lorazepam (ATIVAN) 0.5 Mg Tablet, 0.5 MG PO PRN Q4HRS PRN for ANXIETY / AGITATION for 6 Days, #18 TAB 0 Refills Prov:CA ROLDAN MD 10/04/19 Gabapentin (GABAPENTIN) 300 Mg Capsule, 300 MG PO PRN TID PRN for NEUROPATHIC PAIN for 30 Days, #90 CAP Prov:CA ROLDAN MD 10/04/19 Reported Medications Insulin Regular, Human (NOVOLIN R) 100 Unit/1 Ml Vial, 21 UNITS SQ BIDACHS for 09/26/19 Lovastatin (LOVASTATIN) 40 Mg Tablet, 40 MG PO HS for , TAB 09/26/19 Aspirin (ASPIRIN EC) 81 Mg Tablet.dr, 1 TAB PO DAILY, #30 TAB 3 Refills 01/15/17 Isosorbide Mononitrate (ISOSORBIDE MONONITRATE ER) 30 Mg Tab.er.24h, 1 TAB PO DAILY, #30 TAB 5 Refills 01/15/17 Metoprolol Succinate (METOPROLOL SUCCINATE ( XL )) 25 Mg Tab.er.24h, 25 MG PO DAILY for FOR HYPERTENSION, #30 TAB 0 Refills 01/15/17 Lisinopril (LISINOPRIL) 20 Mg Tablet, 1 TAB PO DAILY, #30 TAB 5 Refills 01/15/17 Fenofibrate (Fenofibrate) 150 Mg Capsule, 160 MG PO DAILY, CAP 01/15/17 Nph, Human Insulin Isophane (NOVOLIN N) 100 Unit/1 Ml Vial, 16 UNIT SQ BIDBFRMEAL, VIAL 01/15/17 Discontinued Reported Medications Hydrochlorothiazide (HYDROCHLOROTHIAZIDE TABLET ) 25 Mg Tablet, 25 MG PO DAILY for DIURETIC, TAB 0 Refills 01/15/17 Insulin Degludec (Tresiba Flextouch U-100) 100 Unit/1 Ml Insuln.pen, 20 UNIT SQ HS, EACH 01/15/17 CA ROLDAN MD Oct 04, 2019 14:12
--- NOTE | 2019-10-04 14:41 | PDOC ---
Progress Note-Wound Care SUBJECTIVE Pt seen for f/u, s/p right fourth toe ray amputation on 09/29. Pt to pa home today. Patient states that he is feeling well today. Patient states that he has been afebrile and is feeling much better since his fevers resolved. Patient denies nausea, vomiting or diarrhea. Patient denies cough or shortness of breath. Patient continues to deny pain of his right foot, secondary to his neuropathy. OBJECTIVE Vital Signs Vital Signs Date Time Temp Pulse Resp B/P (MAP) Pulse Ox O2 Delivery O2 Flow Rate FiO2 10/03/19 07:00 98.6 71 18 150/83 (105) 95 Room Air 98.6 Vital Signs Date Time Temp Pulse Resp B/P (MAP) Pulse Ox O2 Delivery O2 Flow Rate FiO2 10/04/19 11:00 97.5 70 18 131/71 (91) 96 Room Air 97.5 ASSESSMENT Patient awake and alert 54-year-old male in no apparent distress. Patient pleasant in conversation, however states he is anxious regarding upcoming discharge. Vital signs are stable. Patient has been afebrile since 10/01. Respirations are even and unlabored. Patient is on room air not requiring supplemental oxygen. Abdomen is soft, nondistended and nontender. Skin is warm, dry and pink. Patient is status post right fourth toe ray amputation. Wound measures 3.4x1.7x4.7(through and through) cm there is a tunnel at 12:00 with a max depth of 1.8cm. Wound bed is 90% slough, 10% granulation.There is bone palpable, but not visible. Moderate serosanguineous drainage is present in the wound VAC canister. There is no odor following cleansing. The erythema previously noted on the dorsal aspect of the foot is much improved. There is no warmth with palpation. PLAN Right diabetic foot ulcer with infection, status post right fourth toe ray amputation on 09/29 -Patient to discharge home today -[facility] will be assisting with IV antibiotics, prescribed per ID, along with wound VAC changes -Patient to follow-up in our clinic on 10/08 for evaluation and wound VAC change -Continue negative pressure wound therapy continuous at -125 mmHg with VAC changes 3 times weekly -Patient with offloading shoe which is to be worn at all times during ambulation and transfers -Discussed importance of increased protein intake for optimal wound healing along with aggressive regulation of blood sugars Patient stated understanding of the above plan of care, denies questions and will follow-up accordingly SHARI CORTES LUDLOW MACHINE OPERATOR Oct 04, 2019 14:41
[2019-10-04 15:00] VITALS: BP 140/77
--- NOTE | 2019-10-04 15:07 | NUR ---
Pt escorted out with all belongings, PICC line in place, education given by this RN to private vehicle out of main entrance. Extensive discharge eeducation given by [facility] RN.
--- NOTE | 2019-10-04 18:06 | PATHOLOGY ---
[facility] Accession Number: [id number] . 01 Material submitted: . toe - RIGHT 4TH TOE. Modifiers: right, fourth . 01 Clinical history: . R foot diabetic ulcer . 02 Diagnosis: Toe and separate segment of bone and attached soft tissue, right fourth toe ray amputation: - Focal epidermal necrosis with extensive acute cellulitis and focal acute osteomyelitis of toe. - Focal acute cellulitis and subarticular acute osteomyelitis of metatarsal bone. (JPM:ring packer; 10/04/2019) MBR 10/04/2019 1205 Local . 02 Electronically signed: . Sanjiv Puga MD, Pathologist NPI- [id number] . 01 Gross description: . The specimen is received in formalin, labeled "Gene Mcdaniel, Patel fourth toe". Received is an amputated digit measuring 5.3 x 2.2 x 2.1 cm in greatest dimensions. The bone margin is dusky rivera-chaudhari, smooth and convex in appearance, consistent with disarticulation. The bone and soft tissue margins are inked black. The nail is present displaying a pale chaudhari and grossly unremarkable appearance. The epidermal surface is pale chaudhari, sloughing to dusky rivera-brown in appearance. A full-thickness longitudinal cross-section is submitted from proximal to distal aspects in cassettes A1 through A3, following decalcification. . Also received within the specimen container is an additional segment of bone displaying one blunt, hollowed out, transected margin and one smooth convex, disarticulated margin measuring 1.9 x 1.8 x 1.3 cm in greatest dimensions. The transected margin is inked black. A full thickness cross-section is submitted in cassette A4, following decalcification. (CAA; 10/02/2019) QAC/QAC 10/02/2019 [facility] Local . 02 Pathologist provided ICD-10: I96, L03.031, M86.171 . 02 CPT . 058283, 050833 Specimen Comment: A courtesy copy of this report has been sent to [phone], [phone] Specimen Comment: [id number], Specimen Comment: Report sent to ,DR KNAPP / DR VALENZUELA Performed at: 01 [facility] [address] [facility] [address], [place] [id number] MD Dean Brock MD Phone: [phone] Performed at: 02 [facility] [address] [place], [place] [id number] MD Sanjiv Puga MD Phone: [phone]
== END 2019-10-04 15:10 | disposition home health service (06) | DRG 854 ==
LOC: ER 15:40 → 2 NORTH 20:20 → 4 NORTH 10-01 19:03
PROVIDERS: ADMIT Internal Medicine; ATTEND Internal Medicine
PROC: 0JBQ0ZZ Excision of Right Foot Subcutaneous Tissue and Fascia, Open Approach (ICD-10-PCS; 2019-09-29)
PROC: 0Y6M0ZD Detachment at Right Foot, Partial 4th Ray, Open Approach (ICD-10-PCS; principal; 2019-09-30 08:00)
PROC: 02HV33Z Insertion of Infusion Device into Superior Vena Cava, Percutaneous Approach (ICD-10-PCS; 2019-10-02)
PROC: B5181ZA Fluoroscopy of Superior Vena Cava using Low Osmolar Contrast, Guidance (ICD-10-PCS; 2019-10-02)
PROC: B548ZZA Ultrasonography of Superior Vena Cava, Guidance (ICD-10-PCS; 2019-10-02)
DX: A41.9 Sepsis, unspecified organism (principal); L03.115 Cellulitis of right lower limb; M86.8X7 Other osteomyelitis, ankle and foot; B37.2 Candidiasis of skin and nail; E11.42 Type 2 diabetes mellitus with diabetic polyneuropathy; E11.51 Type 2 diabetes mellitus with diabetic peripheral angiopathy without gangrene; E11.610 Type 2 diabetes mellitus with diabetic neuropathic arthropathy; E11.621 Type 2 diabetes mellitus with foot ulcer; E11.628 Type 2 diabetes mellitus with other skin complications; E11.65 Type 2 diabetes mellitus with hyperglycemia; E11.69 Type 2 diabetes mellitus with other specified complication; E78.5 Hyperlipidemia, unspecified; I10 Essential (primary) hypertension; I25.10 Atherosclerotic heart disease of native coronary artery without angina pectoris; I25.82 Chronic total occlusion of coronary artery; K59.00 Constipation, unspecified; L97.519 Non-pressure chronic ulcer of other part of right foot with unspecified severity; M60.9 Myositis, unspecified; Z79.4 Long term (current) use of insulin; Z82.49 Family history of ischemic heart disease and other diseases of the circulatory system; Z83.3 Family history of diabetes mellitus; Z87.891 Personal history of nicotine dependence; Z89.412 Acquired absence of left great toe; E66.9 Obesity, unspecified; F32.9 Major depressive disorder, single episode, unspecified; F41.9 Anxiety disorder, unspecified; Z20.828 Contact with and (suspected) exposure to other viral communicable diseases
CPT/HCPCS: 36415; 36573; 73700; 73720; 77001; 80048; 80053; 80061; 81001; 82550; 82553; 82962; 83036; 83605; 83735; 84484; 85025; 85610; 85730; 86140; 87040; 87071; 87075; 87076; 87077; 87102; 87116; 87176; 87186; 87426; 88305; 88311; 93005; 93925; 99285; A7015; A9575; C1751; C1769; C1892; J0690; J0878; J1335; J1650; J1815; J2248; J2270; J2405; J2543; J2704; J3010; J3370; J3490; J7030; J7040; J7060; A4461; G0378; U0003-CS

== ENCOUNTER → 2019-10-23 | Outpatient (CLI) | payer MEDICARE ==
[2019-10-04 07:00] VITALS: BP 137/47
[~2019-10-23] MED LIST changes: +ERTA1VIA16 IJ; +GABA300C18 PO; +INSU100I32 SQ; +INSU100V11 SQ; +LORA0.5T96 PO; +LOVA40TA2 PO; +[UNRECOGNIZED DRUG - CODE] MC
[2019-10-23 13:03] LABS: BASO % 0 % (0-3); EOS # 0.1 x10^3/uL (0.0-0.7); EOS % 3 % (0-3); HEMOGLOBIN 12.8 g/dL (13.0-17.5); LYMPH # 1.5 x10^3/uL (1.0-4.8); LYMPH % 30 % (24-48); MEAN CORPUSCULAR HEMOGLOBIN 30 pg (25-35); MEAN CORPUSCULAR HGB CONC 34 g/dL (31-37); MEAN CORPUSCULAR VOLUME 89 fL (79-100); MONO # 0.3 x10^3/uL (0.0-1.1); MONO % 7 % (0-9); NEUT # 3.1 x10^3/uL (1.8-7.7); NEUT % 61 % (31-73); PLATELET COUNT 191 x10^3/uL (140-400); RED BLOOD COUNT 4.25 x10^6/uL (4.30-5.70); WHITE BLOOD COUNT 5.1 x10^3/uL (4.0-11.0)
[2019-10-23 13:24] LABS: C-REACTIVE PROTEIN 4.2 mg/L (0-3.3); CREATININE 1.3 mg/dL (0.7-1.3); GFR 57.1
== END | disposition home or self-care (01) ==
LOC: SPEC 12:48
PROVIDERS: ATTEND Internal Medicine Infectious Disease
DX: E11.621 Type 2 diabetes mellitus with foot ulcer (principal); E11.65 Type 2 diabetes mellitus with hyperglycemia; Z79.2 Long term (current) use of antibiotics
CPT/HCPCS: 36415; 82565; 84520; 85025; 86140

== ENCOUNTER → 2020-01-15 | Outpatient (CLI) | payer MEDICAID, MEDICARE ==
[2020-01-15 09:18] LABS: ALBUMIN 4.1 g/dL (3.4-5.0); ALBUMIN/GLOBULIN RATIO 1.1 (1.0-1.7); CALCIUM 9.2 mg/dL (8.5-10.1); CREATININE 1.2 mg/dL (0.7-1.3); GFR 62.6; POTASSIUM 4.3 mmol/L (3.5-5.1); TOTAL BILIRUBIN 0.5 mg/dL (0.2-1.0); TOTAL PROTEIN 7.7 g/dL (6.4-8.2)
[2020-01-15 09:19] LABS: CHOLESTEROL/HDL RATIO 4.2
[2020-01-16 03:09] LABS: HEMOGLOBIN A1C 7.7 % (4.8-5.6)
== END ==
LOC: LAB 08:11
PROVIDERS: ATTEND Family Medicine
DX: Z12.5 Encounter for screening for malignant neoplasm of prostate (principal); E11.65 Type 2 diabetes mellitus with hyperglycemia; E78.2 Mixed hyperlipidemia
CPT/HCPCS: 36415; 80053; 80061; 83036; G0103

== ENCOUNTER → 2020-02-02 | Outpatient (CLI) | payer MEDICAID, MEDICARE ==
[~2020-02-02] MED LIST changes: +REGADENOSON 0.4 MG/5 ML DISP.SYRIN. IV ONE
--- NOTE | 2020-02-02 16:44 | RAD ---
MR#: [id number] Date of Study: 02/02/2020 Ordering Physician: BRIAN JOHNSON Referring Physician: ANTOINETTE CANALES Tech: RT Merary Torres) (N) APPROVED REPORT Test Type: Pharmacological Stress Nurse/Tech: Urszula Carrington RN Test Indications: CAD Cardiac History: CAD, DM Medications: See Electronic Medical Record Medical History: See Electronic Medical Record Resting ECG: SR Resting Heart Rate: 72 bpm Resting Blood Pressure: 132/66mmHg Pretest Chest Pain: None Nurse/Tech Notes Lungs CTA, S1S2 Consent: The procedure was explained to the patient in lay terms. Informed consent was witnessed. Yovanny eout was entered into [employer]. History and Stress Test performed by RT Merary Torres) (N) Pharm. Details Pharmacologic stress testing was performed using 0.4mg per 5ml of regadenoson given intravenously ove r 7-10 seconds. POST EXERCISE Reason for Termination: Infusion complete Max HR: 109 bpm Max Blood Pressure: 132/66mmHg Blood Pressure response to exercise: Normal blood pressure response during stress. Heart Rate response to exercise: normal response Chest Pain: No. Arrhythmia: Yes. PAC ST Change: No. INTERPRETATION Stress EKG Conclusion: No evidence of stress induced EKG changes. Imaging Protocol IMAGE PROTOCOL: Rest Tc-99m/stress Tc-99m 1 day Rest: Stress: Viability: Radiopharm.Tc99m TxdcpqqtfEf43h Sestamibi Stsl93sBe 32mCi Duration 13min. 13min. Img Date 02/02/2020 02/02/2020 Inj-Img Lerj40kxd. 60min. Rest Admin Site:IV - Right AntecubitalAdministrator:RT Melissa (R)(N) Stress Admin Site: IV - Right AntecubitalAdministrator: RT Tahir (Patel)(N) STRESS DATA End Diast. Vol.150.0mlLVEDV index BSA61.0ml End Syst. Vol.63.0mlLVESV index BSA26.0ml Myocardial Frou201.0gEject. Vewsrgzj40.0% Stress Scores Regional WT1.00Summed WT34.00 Regional WM0.00Summed WM5.00 LV Perfusion There is a large sized basal to distal inferior, basal inferoseptal, basal to mid inferolateral wall severe perfusion defect at stress with mild kisha-infarct reversibility at stress consistent with larg e prior RCA territory infarct with minimal reversibility. Wall Motion Mild LV dysfunction. EF 50%. LV Perf. Quant 17 Seg. SSS14.00 17 Seg. SRS8.00 17 Seg. SDS6.00 Stress Defect Extent (% LAD)1.30Rest Defect Extent (% LAD)0.00Rev. Defect Extent (% LAD)1.30 Stress Defect Extent (% LCX) 73.80Rest Defect Extent (% LCX)36.30Rev. Defect Extent (% LCX)71.30 Stress Defect Extent (% RCA)36.70Rest Defect Extent (% RCA)25.60Rev. Defect Extent (% RCA)11.10 Stress Defect Extent (% JIMBO)27.80Rest Defect Extent (% JIMBO)16.30Rev. Defect Extent (% JIMBO)19.80 Other Information Quality:Fair Risk Assessment: Moderate-High Risk Conclusion 1. No evidence of stress induced EKG changes. Baseline EKG consistent with prior inferior infarct. 2. There is a large sized basal to distal inferior, basal inferoseptal, basal to mid inferolateral wa ll severe perfusion defect at stress with mild kisha-infarct reversibility at stress consistent with l arge prior RCA territory infarct with minimal reversibility. 3. Mild LV dysfunction. EF 50% 4. Moderate risk for future CV events. Signed by : Shay Eugene, Electronically Approved : 02/02/2020 13:08:48
--- NOTE | 2020-02-02 16:44 | CARD ---
MR#: [id number] Date of Study: 02/02/2020 Ordering Physician: BRIAN JOHNSON, Referring Physician: BRIAN JOHNSON Tech: Kelsea Peck ALEXANDER APPROVED REPORT EXAM: Two-dimensional and M-mode echocardiogram with Doppler and color Doppler. Other Information Quality : GoodHR: 77bpm Rhythm : NSR INDICATION Dyspnea Cardiac Disease: CAD RISK FACTORS Hypertension Hyperlipidemia Diabetes 2D DIMENSIONS Left Atrium(2D)4.5 (1.6-4.0cm)IVSd1.1 (0.7-1.1cm) Aortic Root(2D)2.9 (2.0-3.7cm)LVDd5.8 (3.9-5.9cm) LVOT Diameter2.7 (1.8-2.4cm)PWd1.0 (0.7-1.1cm) LVDs3.8 (2.5-4.0cm)FS (%) 35.4 % SV107.4 mlLVEF(%)64.0 (>50%) Aortic Valve AoV Peak Hamilton.147.0cm/sLVOT Peak Hamilton.90.4cm/s Mitral Valve MV E Uhdfukxa07.3cm/sMV DECEL DFIQ737ps MV A Sosaklmb60.0cm/sE/A Ratio1.3 MV A Rtlepqua006ep TDI E/Lateral E'14.0 Pulmonary Valve PV Peak Cbyyrlwy705.7cm/s Tricuspid Valve TR P. Uiulvwme921qe/sTR Peak Gr.25mmHg Pulmonary Vein S1 Gtnskjhd35.3cm/sD2 Bybscyeg40.2cm/s PVa gvjuzybh68gmab LEFT VENTRICLE The left ventricle is normal size. There is borderline to mild concentric left ventricular hypertroph y. The left ventricular systolic function is normal and the ejection fraction is within normal range. The EF is 55-60% The basal to mid inferior/inferolateral gaffney are mildly hypokinetic. Tissue Dopple r imaging reveals moderate left ventricular diastolic dysfunction. No left ventricle thrombus noted o n this study. There is no ventricular septal defect visualized. There is no left ventricular aneurysm . RIGHT VENTRICLE The right ventricle is normal size. There is normal right ventricular wall thickness. The right ventr icular systolic function is normal. ATRIA The left atrium size is normal. The right atrium size is normal. The interatrial septum is intact wit h no evidence for an atrial septal defect or patent foramen ovale as noted on 2-D or Doppler imaging. AORTIC VALVE The aortic valve is trileaflet and mildly calcified. Doppler and Color Flow revealed no significant a ortic regurgitation. There is no significant aortic valvular stenosis. There is no aortic valvular ve getation. MITRAL VALVE The mitral valve is normal in structure and function. There is no evidence of mitral valve prolapse. There is no mitral valve stenosis. There is no mitral valve regurgitation noted. TRICUSPID VALVE The tricuspid valve is normal in structure and function. Doppler and Color Flow revealed trace tricus pid valve regurgitation noted. RVSP 25 mm Hg. There is no tricuspid valve prolapse or vegetation. The re is no tricuspid valve stenosis. GREAT VESSELS The aortic root is normal in size. The ascending aorta is mildly dilated at 4.1 cm The IVC is normal in size and collapses >50% with inspiration. PERICARDIAL EFFUSION There is no evidence of significant pericardial effusion. Critical Notification Critical Value: No <Conclusion> The left ventricular systolic function is normal and the ejection fraction is within normal range. Th e EF is 55-60% Doppler and Color Flow revealed trace tricuspid valve regurgitation noted. RVSP 25 mm Hg. The basal to mid inferior/inferolateral gaffney are mildly hypokinetic. The ascending aorta is mildly dilated at 4.1 cm Signed by : Shay Eugene, Electronically Approved : 02/02/2020 13:12:10
== END ==
LOC: NM 09:05
PROVIDERS: ATTEND Internal Medicine Cardiovascular Disease
DX: I25.118 Atherosclerotic heart disease of native coronary artery with other forms of angina pectoris (principal); I51.7 Cardiomegaly
CPT/HCPCS: 78452; 93017; 93306; A9500; J2785

== ENCOUNTER → 2020-11-20 | Outpatient (CLI) | payer MEDICARE ==
[~2020-11-20] MED LIST changes: -ISOS30TA4 PO; +ISOS30TA68 PO; -LISI-334 PO; +LISI20TA18 PO; -REGADENOSON 0.4 MG/5 ML DISP.SYRIN. IV ONE
[2020-11-20 10:12] LABS: HEMATOCRIT 40.7 % (39.0-53.0); HEMOGLOBIN 13.9 g/dL (13.0-17.5); RED BLOOD COUNT 4.44 x10^6/uL (4.30-5.70); RED CELL DISTRIBUTION WIDTH 12.7 % (11.5-14.5); WHITE BLOOD COUNT 4.6 x10^3/uL (4.0-11.0)
[2020-11-20 10:54] LABS: FREE T4 0.8 ng/dL (0.76-1.46); THYROID STIM HORMONE (TSH) 1.411 uIU/mL (0.358-3.74)
[2020-11-20 11:18] LABS: ALBUMIN 3.5 g/dL (3.4-5.0); CALCIUM 8.8 mg/dL (8.5-10.1); POTASSIUM 4.8 mmol/L (3.5-5.1); TOTAL BILIRUBIN 0.5 mg/dL (0.2-1.0); TOTAL PROTEIN 6.9 g/dL (6.4-8.2)
[2020-11-20 11:19] LABS: CHOLESTEROL/HDL RATIO 3.8
[2020-11-21 03:10] LABS: HEMOGLOBIN A1C 7.3 % (4.8-5.6)
== END ==
LOC: LAB 09:37
PROVIDERS: ATTEND Family Medicine
DX: E11.65 Type 2 diabetes mellitus with hyperglycemia (principal); E78.2 Mixed hyperlipidemia; R53.83 Other fatigue
CPT/HCPCS: 36415; 80053; 80061; 83036; 84439; 84443; 85027

== ENCOUNTER → 2020-12-05 | Outpatient (CLI) | payer MEDICAID, MEDICARE ==
[~2020-12-05] MED LIST changes: +ESCITALOPRAM OX20 MG PO; +GADOTERATE 5 MMOL/10ML VIAL. IVP ONE; +GADOTERATE 7.5 MMOL/15ML VIAL. IVP ONE
--- NOTE | 2020-12-05 17:46 | KCIC ---
EXAMINATION: MRI LEFT LOWER EXTREMITY W/WO INDICATIONS: Left second toe ulcer, redness and swelling of the prior amputation. Abnormal x-ray.. TECHNIQUE: Multiplanar multisequence MRI of the left forefoot was obtained without contrast. COMPARISON: None. FINDINGS: There are surgical changes of amputation of the great toe. There is old chronic deformity o f the great toe metatarsal without marrow signal abnormality. There is chronic deformity of the secon d metatarsal head, second proximal phalanx, and second middle phalanx, likely posttraumatic. The mid to distal aspect of the second proximal phalanx has cortical thickening and suggestion of low T1 anay ow signal, however this is favored to be posttraumatic. There is mildly decreased marrow signal in th e second distal phalanx, indeterminate. No definitive osteomyelitis. Mild marrow edema in the second toe. No significant soft tissue abnormality. There is degenerative joint disease in the midfoot at the second TMT joint. There is a partially intr aosseous ganglion cyst and an immediately overlying the middle cuneiform. This measures about 1.3 x 1 .0 x 1.0 cm. Marrow edema in the medial cuneiform is likely reactive. IMPRESSION: 1. Surgical changes of great toe amputation. 2. Chronic deformity of the second toe and head of the second metatarsal with mild signal abnormality in the distal phalanx and proximal phalanx, favored to be posttraumatic rather than osteomyelitis. T here is no significant surrounding soft tissue abnormality. 3. Degenerative joint disease at the second TMT joint with a partially intraosseous ganglion cyst ove rlying the middle cuneiform. Electronically signed by: Ellie Vargas MD (12/05/2020 5:44 PM) [id number]
== END ==
LOC: KCIC MRI 14:24
PROVIDERS: ATTEND Emergency Medicine Undersea and Hyperbaric Medicine
DX: L97.529 Non-pressure chronic ulcer of other part of left foot with unspecified severity (principal); R93.89 Abnormal findings on diagnostic imaging of other specified body structures; M20.62 Acquired deformities of toe(s), unspecified, left foot; M19.072 Primary osteoarthritis, left ankle and foot; M67.48 Ganglion, other site; Z98.890 Other specified postprocedural states
CPT/HCPCS: 73720; A9575

== ENCOUNTER 2021-01-08 05:58 | Day surgery (SDC) | payer MEDICARE ==
[~2021-01-08] VITALS: Ht 193 cm; Wt 109.0 kg
[~2021-01-08 05:58] MED LIST changes: -GADOTERATE 5 MMOL/10ML VIAL. IVP ONE; -GADOTERATE 7.5 MMOL/15ML VIAL. IVP ONE
[2021-01-08] MEDS ORDERED: HYDROmorphone 2 MG/ML VIAL IVP PRN (06:00)
[2021-01-08] MEDS ORDERED: PROCHLORPERAZINE 10 MG/2 ML VIAL. IVP PRN (06:00)
[2021-01-08] MEDS ORDERED: MORPHINE SULFATE 2 MG/ML INJ. IVP PRN (06:00)
[2021-01-08] MEDS ORDERED: IV RINGERS,LACTATED 1000ML 1,000 ML IV SCH (06:00)
--- NOTE | 2021-01-08 06:36 | PDOC1 ---
History and Physical Date of Admission Date of Admission DATE: 01/08/21 TIME: 06:35 Identification/Chief Complaint Chief Complaint Left 2nd toe ulcer Source Source: Patient History of Present Illness History of Present Illness Mr Mcdaniel is a 55 year old male with past medical history of diabetes type 2 with polyneuropathy, hypertension, diabetic neuropathy, CAD (CARDIOVASCULAR OR NURSE RCA and left circ), PAD with prior right fourth toe amputation and left hallux amputation 2010 who comes to the outpatient surgical center for left second toe infection with callus. He initially injured his toe back in July 2020 when cutting his nail and its been slow to heal has been going to the wound clinic has completed 2 courses of antibiotics most recently Augmentin and foot radiograph November 26 with concern for potential bone infection underwent MRI on 12/05/2020 with no clear concern for osteomyelitis of the second toe but his toe despite another course of antibiotics continue to have some drainage and is still poorly healing and has had difficulty wearing his shoes due to hammertoe deformity. Patient denies any pain or bleeding. Patient denies any falls or trauma. Patient states that he is compliant with his diabetes management, A1c 7.3 as of October 2020. Denies fevers, chills, abdominal pain, diarrhea, polyuria, or polydipsia. He is fully vaccinated against COVID 19. Underwent a cardiac stress test January 2020 with no significant reversible ischemia does see cardiology in outpatient follow-up. He has no complaints this morning notes that he did not take his Humulin N or Humulin R last night because he was n.p.o. for surgery but checked his blood sugar it was 196 this morning that he took 15 units of Humulin R. No history of blood transfusions no history of blood clots no problems with anesthesia. He is requested to consider not undergo general anesthesia because of his severe diabetic neuropathy he does not think he will feel the surgery and would like to observe it. I have advised him this may not be good for his psychological health. Past Medical History Cardiovascular: CAD, HTN, Hyperlipidemia, Other CENTRAL NERVOUS SYSTEM: Periperal neuropathy Psych: Anxiety, Depression Endocrine: Diabetes Past Surgical History Past Surgical History: Hernia Repair, Other (Right fourth toe amputation 2019, left great toe amputation 2010, ganglion cyst removal left wrist) Family History Family History Mother age 66 due to ovarian cancer, father alive age 82 with active lung cancer, brother due to brain aneurysm additional living with brother and sister no health problems that he knows of. Family History: Diabetes, Hypertension Social History Smoke: No ALCOHOL: none Drugs: None Current Medications Current Medications Current Medications Morphine Sulfate (Morphine Sulfate) 1 mg PRN Q10MIN PRN IVP SEVERE PAIN 7-10; Start 01/08/21 at 06:00; Stop 01/09/21 at 05:59 Ringer's Solution 1,000 ml @ 30 mls/hr Q24H IV ; Start 01/08/21 at 06:00; Stop 01/08/21 at 17:59 Hydromorphone HCl (Dilaudid) 0.5 mg PRN Q10MIN PRN IVP SEVERE PAIN 7-10, 2nd CHOICE; Start 01/08/21 at 06:00; Stop 01/09/21 at 05:59 Prochlorperazine Edisylate (Compazine) 5 mg PACU PRN PRN IVP NAUSEA, MRX1; Start 01/08/21 at 06:00; Stop 01/09/21 at 05:59 Cefazolin Sodium/ Dextrose 50 ml @ 100 mls/hr 1X PREOP PRN IV PRIOR TO PROCEDURE; Start 01/08/21 at 06:00; Stop 01/08/21 at 18:00 Active Scripts Active Reported Escitalopram Oxalate 20 Mg Tablet 20 Mg PO DAILY Novolin R (Insulin Regular, Human) 100 Unit/1 Ml Vial 21 Units SQ TIDAC Lovastatin 40 Mg Tablet 40 Mg PO DAILY08 Aspirin Ec (Aspirin) 81 Mg Tablet.dr 1 Tab PO DAILY Isosorbide Mononitrate Er (Isosorbide Mononitrate) 30 Mg Tab.er.24h 1 Tab PO DAILY Fenofibrate 150 Mg Capsule 160 Mg PO DAILY Novolin N (Nph, Human Insulin Isophane) 100 Unit/1 Ml Vial 21 Unit SQ BID Allergies Allergies: Coded Allergies: fentanyl (Verified Allergy, Severe, hives, itching, 01/08/21) hydrochlorothiazide (Verified Allergy, Intermediate, 01/08/21) ROS General: No: Chills, Night Sweats, Fatigue, Malaise, Appetite, Other PSYCHOLOGICAL ROS: No: Anxiety, Behavioral Disorder, Concentration difficultie, Decreased libido, Depression, Disorientation, Hallucinations, Hostility, Irritablity, Memory difficulties, Mood Swings, Obsessive thoughts, Physical abuse, Sexual abuse, Sleep disturbances, Suicidal ideation, Other Eyes: No Blurry vision, No Decreased vision, No Double vision, No Dry eyes, No Excessive tearing, No Eye Pain, No Itchy Eyes, No Loss of vision, No Photophobia, No Scotomata, No Uses contacts, No Uses glasses, No Other HEENT: No: Heacaches, Visual Changes, Hearing change, Nasal congestion, Nasal discharge, Oral lesions, Sinus pain, Sore Throat, Epistaxis, Sneezing, Snoring, Tinnitus, Vertigo, Vocal changes, Other ALLERGY AND IMMUNOLOGY: No: Hives, Insect Bite Sensitivity, Itchy/Watery Eyes, Nasal Congestion, Post Nasal Drip, Seasonal Allergies, Other Hematological and Lymphatic: No: Bleeding Problems, Blood Clots, Blood Transfusions, Brusing, Night Sweats, Pallor, Swollen Lymph Nodes, Other ENDOCRINE: No: Breast Changes, Galactorrhea, Hair Pattern Changes, Hot Flashes, Malaise/lethargy, Mood Swings, Palpitations, Polydipsia/polyuria, Skin Changes, Temperature Intolerance, Unexpected Weight Changes, Other Breast: No New/Changing Breast Lumps, No Nipple changes, No Nipple discharge, No Other Respiratory: No: Cough, Hemoptysis, Orthopnea, Pleuritic Pain, Shortness of breath, SOB with excertion, Sputum Changes, Stridor, Tachypnea, Wheezing, Other Cardiovascular: No Chest Pain, No Palpitations, No Orthopnea, No Paroxysmal Noc . Dyspnea, No Edema, No Lt Headedness, No Other Gastrointestinal: No Nausea, No Vomiting, No Abdominal Pain, No Diarrhea, No Constipation, No Melena, No Hematochezia, No Other Genitourinary: No Dysuria, No Frequency, No Incontinence, No Hematuria, No Retention, No Discharge, No Urgency, No Pain, No Flank Pain, No Other, No , No , No , No , No , No , No Musculoskeletal: Yes Joint Pain, Yes Joint Stiffness; No Gait Disturbance, No Joint Swelling, No Muscle Pain, No Muscular Weakness, No Pain In:, No Swelling In:, No Other Neurological: Yes Numbness/Tingling; No Behavorial Changes, No Bowel/Bladder ControlChng, No Confusion, No Dizziness, No Gait Disturbance, No Headaches, No Impaired Coord/balance, No Memory Loss, No Seizures, No Speech Problems, No Tremors, No Visual Changes, No Weakness, No Other Skin: No Dry Skin, No Eczema, No Hair Changes, No Lumps, No Mole Changes, No Mottling, No Nail Changes, No Pruritus, No Rash, No Skin Lesion Changes, No Other, No Acne Physical Exam General: Alert, Oriented X3, Cooperative, No acute distress HEENT: Atraumatic, PERRLA, EOMI, Mucous membr. moist/pink Lungs: Clear to auscultation, Normal air movement Heart: S1S2, RRR, no thrills, no rubs, no gallops, no murmurs Abdomen: Normal bowel sounds, Soft, No tenderness, No hepatosplenomegaly, No masses Extremities: No clubbing, No cyanosis, No edema, Normal pulses, Other (Left 2nd toe) Skin: Other (Left second toe tuft ulceration and dorsal ulceration DIP as well as small third left toe DIP ulceration very shallow.) Neuro: Normal gait, Normal speech, Strength at 5/5 X4 ext, Normal tone, Cranial nerves 3-12 NL, Reflexes 2+, Other (Glove and stocking sensation loss) Images Images Left foot radiograph: 11/26/2020: FINDINGS: There are surgical changes of great toe amputation. There are chronic erosions of the second metatarsal head and base of the second proximal phalanx. Degenerative joint disease or erosions of the second DIP. There are chronic deformities of the first and second metatarsals. Mildly increased density of the second toe and second metatarsal. Mild degenerative joint disease of the midfoot. No soft tissue gas. IMPRESSION: 1. Surgical changes of great toe amputation. 2. There are large chronic appearing erosions or deformity of the second metatarsal head and second proximal phalanx base. The could be sequela of septic arthritis or posttraumatic. If there is clinical concern for osteomyelitis, MRI would be more sensitive. MRI left foot: 12/05/2020 FINDINGS: There are surgical changes of amputation of the great toe. There is old chronic deformity of the great toe metatarsal without marrow signal abnormality. There is chronic deformity of the second metatarsal head, second proximal phalanx, and second middle phalanx, likely posttraumatic. The mid to distal aspect of the second proximal phalanx has cortical thickening and suggestion of low T1 marrow signal, however this is favored to be posttraumatic. There is mildly decreased marrow signal in the second distal phalanx, indeterminate. No definitive osteomyelitis. Mild marrow edema in the second toe. No significant soft tissue abnormality. There is degenerative joint disease in the midfoot at the second TMT joint. There is a partially intraosseous ganglion cyst and an immediately overlying the middle cuneiform. This measures about 1.3 x 1.0 x 1.0 cm. Marrow edema in the medial cuneiform is likely reactive. IMPRESSION: 1. Surgical changes of great toe amputation. 2. Chronic deformity of the second toe and head of the second metatarsal with mi ld signal abnormality in the distal phalanx and proximal phalanx, favored to be posttraumatic rather than osteomyelitis. There is no significant surrounding soft tissue abnormality. 3. Degenerative joint disease at the second TMT joint with a partially int raosseous ganglion cyst overlying the middle cuneiform. 02/02/2020: MPI Stress test: 1. No evidence of stress induced EKG changes. Baseline EKG consistent with prior inferior infarct. 2. There is a large sized basal to distal inferior, basal inferoseptal, basal to mid inferolateral wall severe perfusion defect at stress with mild kisha-infarct reversibility at stress consistent with large prior RCA territory infarct with minimal reversibility. 3. Mild LV dysfunction. EF 50% 4. Moderate risk for future CV events. VTE Prophylaxis Ordered VTE Prophylaxis Devices: Yes VTE Pharmacological Prophylaxi: No Assessment/Plan Assessment/Plan A/P: Left 2nd toe diabetic ulcer -failed outpatient wound care and antibiotics going for definitive surgical debridement. No further testing prior to planned surgery Diabetes type 2 controlled Hypertension - stable on home meds Peripheral neuropathy - on gabapentin CAD - with known CARDIOVASCULAR OR NURSE RCA and left circumflex, no reversible ischemia on recent MPI PAD - s/p prior amputations, no occlusive disease in left leg on prior studies in 2019 FEN - NPO PPX - SCD FULL CODE Dispo -outpatient surgery, discharge after surgery. We will be available if patient requires inpatient admission please call for any questions [phone] Justifications for Admission Other Justification CA ROLDAN MD Jan 08, 2021 06:36
[2021-01-08 06:42] VITALS: BP 150/75
[2021-01-08] MEDS ORDERED: INSULIN LISPRO 100 UNIT/ML 3ML VIAL for OP,RR ONLY. SQ PRN (06:45)
[2021-01-08] MEDS ORDERED: PROPOFOL 10 MG/ML (20ML) VIAL. IV ONE (06:49)
[2021-01-08] MEDS ORDERED: LIDOCAINE 2% PF 5 ML VIAL. ONE (06:49)
[2021-01-08] MEDS ORDERED: DESFLURANE 61 TO 120 MINUTES IH ONE ×3 (06:50)
[2021-01-08] MEDS ORDERED: BUPIVACAINE MPF 0.25% 30 ML VIAL. ONE (07:10)
[2021-01-08] MEDS ORDERED: VANCOMYCIN 1 GM VIAL. ONE (07:10)
[2021-01-08] MEDS ORDERED: GLYCOPYRROLATE 1 MG/5 ML VIAL. ONE (07:16)
[2021-01-08] MEDS ORDERED: BUPIVACAINE MPF 0.25% 30 ML VIAL. INJ ONE (08:00)
--- NOTE | 2021-01-08 08:27 | PDOC4 ---
OPERATIVE NOTE Date: Date: Jan 08, 2021 Pre-Op Diagnosis: Left chronic and recurrent second digit ulcer, cellulitis Post-Op Diagnosis: Same as above Procedure Performed: Left second DIPJ disarticulation and I&D Surgeon: Shyanne Novak DPM Anesthesia Type: Local MAC Blood Loss: 10 cc Specimans Obtained: Left second distal phalanx Findings: Partial thickness ulcer to the distal tuft of the second digit with periwound erythema and edema. After debridement, the underlying osseous structures, tendon was spared without any deeper tissue necrotic changes or purulence. However given the chronic rigid hammertoe contracture, the distal tuft is prone to mechanical irritation and pressure. Complications: None Operative Note: Patient was brought into the operating room and placed on the operating table in a supine position. A timeout was performed to confirm patient's identity, location of surgery and procedure. After induction of conscious sedation, 6 cc of 0.25% Marcaine plain was infiltrated into the left second and distal ray for local anesthesia. A pneumatic left high ankle tourniquet was placed with pressure set 250 mmHg. The left lower extremity was then scrubbed, prepped and draped in the usual sterile manner. The left lower extremity was elevated for gravity exsanguination and the tourniquet was inflated to 250 mmHg. Then the attention was directed to the left second digit. A modified fishmouth incision was made over the medial lateral aspect of the DIPJ. The full- thickness incision was carried to deep to the level of the DIPJ. The digit was sent for pathology. Intraoperative deep tissue evaluation was negative for purulence, proximal tracking along the tendons, middle phalanx necrotic changes or concerning for osteomyelitis. Copious saline solution was used for joint and wound irrigation. After that, a deep tissue culture was collected at this time for anaerobes, aerobes and sensitivity. Afterwards, wound site inspection was negative for necrotic tissue, purulence. The tissue appeared granular with healthy pinpoint bleeding. The wound was closed with 3-0 and 4-0 nylons. Tourniquet was deflated and adequate digital perfusion skin flaps were noted. Postoperative anesthesia consisted of 2 cc of 0.25% Marcaine was infiltrated to the surgical site for pain control. The left surgical foot was dressed with Betadine soaked Adaptic, 4 x 4 gauze, soft roll and Holden bandage with minimal compression. Patient tolerated procedure anesthesia well with vital signs stable and neurovascular status intact. Patient was then transferred to PACU for continued recovery. Pending 3 view of the left foot x-ray. SHYANNE NOVAK DPM Jan 08, 2021 08:27
[2021-01-08] MEDS ORDERED: GABAPENTIN 100 MG CAPSULE. PO ONE (08:30)
[2021-01-08] MEDS ORDERED: oxyCODONE/APAP 5/325 1 TAB TABLET PO ONE (08:30)
[2021-01-08] MEDS ORDERED: ACETAMINOPHEN 325 MG TABLET. PO ONE (08:30)
[2021-01-08 08:33] VITALS: BP 128/64
--- NOTE | 2021-01-08 12:22 | RAD ---
EXAM: 3 views of the left foot DATE: 01/08/2021 8:29 AM INDICATION: Reason: POST-OP TOE AMPUTATION / Spl. Instructions: / History: COMPARISON: 11/26/2020 FINDINGS: No acute fracture or dislocation. Midfoot degenerative changes with small osteophytes. Mild forefoot soft tissue swelling. Amputation changes through the distal shaft of the hallux metatarsal. Chronic e rosive destructive change at the second MTP joint IMPRESSION: 1. Amputation changes through the distal shaft of the hallux metatarsal. 2. Chronic erosive destructive change at the second MTP joint. No definite radiographic evidence for osteomyelitis. If there is clinical concern for superimposed acute osteomyelitis, MRI is recommended however the radiographic changes appear chronic. Electronically signed by: Myles Rodriguez MD (01/08/2021 12:19 PM) [id number]
--- NOTE | 2021-01-10 18:14 | PATHOLOGY ---
[facility] Accession Number: [id number] . 01 Material submitted: . toe - LEFT 2ND TOE PROXIMAL SIDE INKED FOR MARGIN. Modifiers: left, second, proximal . 01 Clinical history: . DIABETES/NEUROPATHY L 2ND TOE AMPUTATION . 02 Diagnosis: Segment of skin and subcutaneous tissue and separate segment of bone and articular cartilage with attached fibrous tissue, distal left second toe amputation: - Focal ulceration and acute inflammation of hyperkeratotic skin. - Separate segment of bone and soft tissue negative for acute cellulitis or acute osteomyelitis. (JPM/db; 01/10/2021) LBQ 01/10/2021 1428 Local . 02 Electronically signed: . Sanjiv Puga MD, Pathologist NPI- [id number] . 01 Gross description: . Received in formalin labeled "Gene Mcdaniel, left second toe proximal side inked for margin" is a toe disarticulation specimen received in 2 pieces. The first piece consists of a fragment of chaudhari-white skin and underlying soft tissue measuring 2.6 x 2.3 x 1.2 cm. The resection margins are smooth and consistent with surgical margins, and are inked black. The skin surface displays an ulcerated chaudhari-brown lesion measuring 1.3 x 0.8 x 0.2 cm and a chaudhari-white possible nail measuring 1.5 x 0.8 x 0.2 cm. The previously described lesion is located 0.2 cm to the closest inked margin. Also present within the container is a separate fragment of chaudhari-white bone measuring 2.1 x 1.8 x 1.7 cm. One aspect displays a concave cartilage covered disarticulation displaying surgical ink, consistent with the proximal margin (per surgeon). This aspect is inked blue. 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; 01/09/2021) [facility] 01/09/2021 0925 Local . 02 Pathologist provided ICD-10: L97.529, L08.9 . 02 CPT . 944164, [id number] Specimen Comment: A courtesy copy of this report has been sent to [phone] Specimen Comment: [id number] Specimen Comment: Report sent to / DR VALENZUELA Performed at: 01 [facility] [address], [place] [id number] MD Carmelo Miller MD Phone: [phone] Performed at: 02 [facility] [address] [place], [place] [id number] MD Sanjiv Puga MD Phone: [phone]
== END 2021-01-08 09:00 | disposition home or self-care (01) ==
LOC: SURG 05:58
PROVIDERS: ATTEND Podiatrist
DX: E11.621 Type 2 diabetes mellitus with foot ulcer (principal); L03.032 Cellulitis of left toe; E11.40 Type 2 diabetes mellitus with diabetic neuropathy, unspecified; I10 Essential (primary) hypertension; I25.10 Atherosclerotic heart disease of native coronary artery without angina pectoris; E78.00 Pure hypercholesterolemia, unspecified; F32.9 Major depressive disorder, single episode, unspecified; F41.9 Anxiety disorder, unspecified; Z98.890 Other specified postprocedural states; Z79.899 Other long term (current) drug therapy
CPT/HCPCS: 28825; 73630; 82962; A4930; J0690; J3490; 88305; 88311; A4657; J2704; J3370